=== PATIENT | male | born 1950 | race Caucasian/White ===

== ENCOUNTER 2016-11-30 22:30 | Inpatient (IN) | payer MEDICARE ==
[2016-11-30] MEDS ORDERED: SODIUM CHLORIDE 0.9% 1,000 ML IV STA (22:41)
[2016-11-30] MEDS ORDERED: IPRATROPIUM-ALBUTEROL 3 ML NEB INHALATION STA (22:41)
--- NOTE | 2016-11-30 22:45 | ED ---
SOB HPI - General Stated Complaint: SARA/Dizziness Time Seen by Provider: 11/30/16 22:30 Source: patient, family, EMS, RN notes reviewed Mode of arrival: EMS - History of Present Illness Initial Comments: This is a 66-year-old male who presents with complaints of dizziness and shortness of breath this started earlier tonight. He also had nausea. He is brought in by EMS patient denies any history of lung problems. He denies any chest pain. No recent fevers chills sweats or other symptoms. He was given Zofran and route by EMS. His only history is that of cardiac disease and diabetes type 2. MD Complaint: shortness of breath - Related Data Home Medications Medication Instructions Recorded Confirmed metFORMIN HCL [Glucophage] 500 mg PO BID 12/01/16 12/01/16 Previous Rx's Medication Instructions Recorded Aspirin EC [Ecotrin] 325 mg PO DAILY #30 tablet. 11/14/14 amLODIPine [Norvasc] 10 mg PO DAILY #30 tab 11/14/14 Allergies Allergy/AdvReac Type Severity Reaction Status Date / Time orphenadrine citrate Allergy Rash/Hives Verified 11/30/16 22:51 [From Norflex] Review of Systems ROS Statement: Those systems with pertinent positive or pertinent negative responses have been documented in the HPI. ROS Other: All systems not noted in ROS Statement are negative. Past Medical History Past Medical History: CVA/TIA, Hypertension Additional Past Medical History / Comment(s): TIA LONG TIME AGO History of Any Multi-Drug Resistant Organisms: None Reported Past Surgical History: Adenoidectomy, Hernia Repair, Tonsillectomy Additional Past Surgical History / Comment(s): RT INGUINAL X4 SEPARATE SX Past Anesthesia/Blood Transfusion Reactions: Motion Sickness, Postoperative Nausea & Vomiting (PONV) Past Psychological History: No Psychological Hx Reported Smoking Status: Former smoker Past Alcohol Use History: None Reported Additional Past Alcohol Use History / Comment(s): STARTED SMOKING AT AGE 21 AND QUIT AT AGE 22 Past Drug Use History: None Reported - Past Family History Father Family Medical History: Myocardial Infarction ([place]) Additional Family Medical History / Comment(s): AT AGE 74 FROM [place] Mother Family Medical History: Diabetes Mellitus Additional Family Medical History / Comment(s): AT AGE 55 COMPLICATIONS FROM DIABETES General Exam - General Exam Comments Initial Comments: This is a well-developed well-nourished awake alert oriented times x3 male General appearance: alert, anxious, in distress Head exam: Present: atraumatic, normocephalic, normal inspection Eye exam: Present: normal appearance, PERRL, EOMI. Absent: scleral icterus, conjunctival injection, periorbital swelling ENT exam: Present: normal exam, mucous membranes moist Neck exam: Present: normal inspection. Absent: tenderness, meningismus, lymphadenopathy Respiratory exam: Present: wheezes, decreased breath sounds. Absent: respiratory distress, rales, rhonchi, stridor Cardiovascular Exam: Present: regular rate, normal rhythm, normal heart sounds. Absent: systolic murmur, diastolic murmur, rubs, gallop, clicks GI/Abdominal exam: Present: soft, normal bowel sounds. Absent: distended, tenderness, guarding, rebound, rigid Extremities exam: Present: normal inspection, full ROM, normal capillary refill. Absent: tenderness, pedal edema, joint swelling, calf tenderness Back exam: Present: normal inspection Neurological exam: Present: alert, oriented X3, CN II-XII intact Psychiatric exam: Present: normal affect, normal mood Skin exam: Present: warm, dry, intact, normal color. Absent: rash Course Vital Signs 11/30/16 11/30/16 11/30/16 22:48 22:58 23:05 Temperature 97.7 F Pulse Rate 80 76 78 Respiratory 20 Rate Blood Pressure 143/63 O2 Sat by Pulse 92 L Oximetry 12/01/16 00:00 Temperature Pulse Rate 70 Respiratory 18 Rate Blood Pressure 144/67 O2 Sat by Pulse 95 Oximetry - Reevaluation(s) Reevaluation #1: 12/01/16 00:23 Patient states he is breathing better he does demonstrate an elevated d-dimer CAT scan has been ordered of his chest. Medical Decision Making - Medical Decision Making I did reevaluate patient several occasions he still feeling very dyspneic especially on sitting upright. He has wheezing in the bases. Patient will be admitted - Lab Data Result diagrams: 11/30/16 22:55 11/30/16 22:55 Lab Results 11/30/16 11/30/16 11/30/16 Range/Units 22:55 22:55 22:55 WBC 6.5 (3.8-10.6) k/uL RBC 4.76 (4.30-5.90) m/uL Hgb 13.7 (13.0-17.5) gm/dL Hct 41.4 (39.0-53.0) % MCV 87.0 (80.0-100.0) fL MCH 28.7 (25.0-35.0) pg MCHC 33.0 (31.0-37.0) g/dL RDW 13.6 (11.5-15.5) % Plt Count 216 (150-450) k/uL Neutrophils % 65 % Lymphocytes % 22 % Monocytes % 6 % Eosinophils % 5 % Basophils % 1 % Neutrophils # 4.2 (1.3-7.7) k/uL Lymphocytes # 1.4 (1.0-4.8) k/uL Monocytes # 0.4 (0-1.0) k/uL Eosinophils # 0.3 (0-0.7) k/uL Basophils # 0.0 (0-0.2) k/uL PT (9.0-12.0) sec INR (<1.1) APTT (22.0-30.0) sec D-Dimer (<0.60) mg/L FEU Sodium 141 (137-145) mmol/L Potassium 3.9 (3.5-5.1) mmol/L Chloride 104 (98-107) mmol/L Carbon Dioxide 24 (22-30) mmol/L Anion Gap 13 mmol/L BUN 20 (9-20) mg/dL Creatinine 0.80 (0.66-1.25) mg/dL Est GFR (MDRD) Af Amer >60 (>60 ml/min/1.73 sqM) Est GFR (MDRD) Non-Af >60 (>60 ml/min/1.73 sqM) Glucose 173 H (74-99) mg/dL Calcium 9.0 (8.4-10.2) mg/dL Magnesium 1.9 (1.6-2.3) mg/dL Total Bilirubin 0.4 (0.2-1.3) mg/dL AST 22 (17-59) U/L ALT 40 (21-72) U/L Alkaline Phosphatase 87 (38-126) U/L Total Creatine Kinase 77 (55-170) U/L CK-MB (CK-2) 1.2 (0.0-2.4) ng/mL CK-MB (CK-2) Rel Index 1.6 Troponin I 0.023 (0.000-0.034) ng/mL NT-Pro-B Natriuret Pep pg/mL Total Protein 6.9 (6.3-8.2) g/dL Albumin 3.8 (3.5-5.0) g/dL 11/30/16 11/30/16 Range/Units 22:55 22:55 WBC (3.8-10.6) k/uL RBC (4.30-5.90) m/uL Hgb (13.0-17.5) gm/dL Hct (39.0-53.0) % MCV (80.0-100.0) fL MCH (25.0-35.0) pg MCHC (31.0-37.0) g/dL RDW (11.5-15.5) % Plt Count (150-450) k/uL Neutrophils % % Lymphocytes % % Monocytes % % Eosinophils % % Basophils % % Neutrophils # (1.3-7.7) k/uL Lymphocytes # (1.0-4.8) k/uL Monocytes # (0-1.0) k/uL Eosinophils # (0-0.7) k/uL Basophils # (0-0.2) k/uL PT 10.0 (9.0-12.0) sec INR 1.0 (<1.1) APTT 24.4 (22.0-30.0) sec D-Dimer 0.82 H (<0.60) mg/L FEU Sodium (137-145) mmol/L Potassium (3.5-5.1) mmol/L Chloride (98-107) mmol/L Carbon Dioxide (22-30) mmol/L Anion Gap mmol/L BUN (9-20) mg/dL Creatinine (0.66-1.25) mg/dL Est GFR (MDRD) Af Amer (>60 ml/min/1.73 sqM) Est GFR (MDRD) Non-Af (>60 ml/min/1.73 sqM) Glucose (74-99) mg/dL Calcium (8.4-10.2) mg/dL Magnesium (1.6-2.3) mg/dL Total Bilirubin (0.2-1.3) mg/dL AST (17-59) U/L ALT (21-72) U/L Alkaline Phosphatase (38-126) U/L Total Creatine Kinase (55-170) U/L CK-MB (CK-2) (0.0-2.4) ng/mL CK-MB (CK-2) Rel Index Troponin I (0.000-0.034) ng/mL NT-Pro-B Natriuret Pep 157 pg/mL Total Protein (6.3-8.2) g/dL Albumin (3.5-5.0) g/dL - EKG Data -: EKG Interpreted by Ar EKG shows normal: sinus rhythm (Sinus rhythm rate of 83. Arrival 160 QRS duration 98 QT/QTC of 412/[address]-T wave configuration. Some artifact is present) - Radiology Data Radiology results: report reviewed (X-rays are nonspecific a CAT scan of the chest was done no evidence of pulmonary emboli.), image reviewed Disposition Clinical Impression: Adult respiratory distress syndrome, Acute bronchospasm Disposition: ADMITTED IP TO THIS HOSP Condition: Stable
[2016-11-30 23:07] LABS: Basophils % (A) 1 %; CH 29.3; CHCM 33.8; Eosinophils # (A) 0.3 k/uL (0-0.7); Eosinophils % (A) 5 %; HCT 41.4 % (39.0-53.0); HDW 2.88; HGB 13.7 gm/dL (13.0-17.5); Luc # (Auto) 0.17; Luc % (Auto) 3; Lymphocytes # (A) 1.4 k/uL (1.0-4.8); Lymphocytes % (A) 22 %; MCH 28.7 pg (25.0-35.0); Mean Platelet Volume 6.8; Monocytes # (A) 0.4 k/uL (0-1.0); Monocytes % (A) 6 %; Neutrophils # (A) 4.2 k/uL (1.3-7.7); Neutrophils % (A) 65 %; RBC 4.76 m/uL (4.30-5.90); RDW 13.6 % (11.5-15.5); WBC 6.5 k/uL (3.8-10.6); WBC (Perox) 6.65
[2016-11-30 23:20] LABS: Partial Thromboplastin Time 24.4 sec (22.0-30.0)
[2016-11-30 23:24] LABS: ALT 40 U/L (21-72); AST 22 U/L (17-59); Alkaline Phosphatase 87 U/L (38-126); Anion Gap 13 mmol/L; Blood Urea Nitrogen 20 mg/dL (9-20); Carbon Dioxide 24 mmol/L (22-30); Chloride 104 mmol/L (98-107); Glucose 173 mg/dL (74-99); Magnesium 1.9 mg/dL (1.6-2.3); Non-African American GFR(MDRD) >60 (>60 ml/min/1.73 sqM); Potassium 3.9 mmol/L (3.5-5.1); Sodium 141 mmol/L (137-145); Total Bilirubin 0.4 mg/dL (0.2-1.3); Total Protein 6.9 g/dL (6.3-8.2)
[2016-11-30 23:35] LABS: Creatine Kinase MB 1.2 ng/mL (0.0-2.4); Troponin I 0.023 ng/mL (0.000-0.034)
[2016-11-30] MEDS ORDERED: RX INFO: IV CONTRAST WAS GIVEN 1 EACH MISC MISCELLANE PRN (23:40)
--- NOTE | 2016-11-30 23:58 | XR ---
EXAMINATION TYPE: XR chest 2V DATE OF EXAM: 11/30/2016 11:41 PM COMPARISON: 11/07/2014 HISTORY: Dizziness TECHNIQUE: Frontal and lateral views of the chest are obtained. FINDINGS: There is no heart failure nor confluent pneumonic infiltrate. Heart is probably enlarged. Thoracic aorta is atheromatous. There are chest leads. Costophrenic angles are clear. IMPRESSION: Mild cardiomegaly. No active cardiopulmonary disease. No change.
--- NOTE | 2016-12-01 00:55 | CT ---
EXAMINATION TYPE: CT angio chest DATE OF EXAM: 12/01/2016 12:39 AM COMPARISON: NONE HISTORY: weakness, R/O PE CT DLP: 612.10 mGycm Automated exposure control for dose reduction was used. CONTRAST: CTA scan of the thorax is performed with IV Contrast, patient injected with 70 mL of Omnipaque 350, p ulmonary embolism protocol. . FINDINGS: There are 3-D post processed images. There is mild atelectasis at the lung bases. There is no evidenc e of a pulmonary mass. There is no pleural effusion. There is a small hiatal hernia. There is no estefany cardial effusion. I see no filling defect in the pulmonary arteries. There are no hilar masses. There is no mediastinal adenopathy. There is no evidence of aortic aneurysm or dissection. The bony thorax is intact. IMPRESSION: NO EVIDENCE OF PULMONARY EMBOLISM. SMALL HIATAL HERNIA. BASILAR MILD PLEURAL THICKENING AND ATELECTAS IS.
--- NOTE | 2016-12-01 01:10 | ED ---
Medical Decision Making - Lab Data Result diagrams: 11/30/16 22:55 11/30/16 22:55 Lab Results 11/30/16 11/30/16 11/30/16 Range/Units 22:55 22:55 22:55 WBC 6.5 (3.8-10.6) k/uL RBC 4.76 (4.30-5.90) m/uL Hgb 13.7 (13.0-17.5) gm/dL Hct 41.4 (39.0-53.0) % MCV 87.0 (80.0-100.0) fL MCH 28.7 (25.0-35.0) pg MCHC 33.0 (31.0-37.0) g/dL RDW 13.6 (11.5-15.5) % Plt Count 216 (150-450) k/uL Neutrophils % 65 % Lymphocytes % 22 % Monocytes % 6 % Eosinophils % 5 % Basophils % 1 % Neutrophils # 4.2 (1.3-7.7) k/uL Lymphocytes # 1.4 (1.0-4.8) k/uL Monocytes # 0.4 (0-1.0) k/uL Eosinophils # 0.3 (0-0.7) k/uL Basophils # 0.0 (0-0.2) k/uL PT (9.0-12.0) sec INR (<1.1) APTT (22.0-30.0) sec D-Dimer (<0.60) mg/L FEU Sodium 141 (137-145) mmol/L Potassium 3.9 (3.5-5.1) mmol/L Chloride 104 (98-107) mmol/L Carbon Dioxide 24 (22-30) mmol/L Anion Gap 13 mmol/L BUN 20 (9-20) mg/dL Creatinine 0.80 (0.66-1.25) mg/dL Est GFR (MDRD) Af Amer >60 (>60 ml/min/1.73 sqM) Est GFR (MDRD) Non-Af >60 (>60 ml/min/1.73 sqM) Glucose 173 H (74-99) mg/dL Calcium 9.0 (8.4-10.2) mg/dL Magnesium 1.9 (1.6-2.3) mg/dL Total Bilirubin 0.4 (0.2-1.3) mg/dL AST 22 (17-59) U/L ALT 40 (21-72) U/L Alkaline Phosphatase 87 (38-126) U/L Total Creatine Kinase 77 (55-170) U/L CK-MB (CK-2) 1.2 (0.0-2.4) ng/mL CK-MB (CK-2) Rel Index 1.6 Troponin I 0.023 (0.000-0.034) ng/mL NT-Pro-B Natriuret Pep pg/mL Total Protein 6.9 (6.3-8.2) g/dL Albumin 3.8 (3.5-5.0) g/dL 11/30/16 11/30/16 Range/Units 22:55 22:55 WBC (3.8-10.6) k/uL RBC (4.30-5.90) m/uL Hgb (13.0-17.5) gm/dL Hct (39.0-53.0) % MCV (80.0-100.0) fL MCH (25.0-35.0) pg MCHC (31.0-37.0) g/dL RDW (11.5-15.5) % Plt Count (150-450) k/uL Neutrophils % % Lymphocytes % % Monocytes % % Eosinophils % % Basophils % % Neutrophils # (1.3-7.7) k/uL Lymphocytes # (1.0-4.8) k/uL Monocytes # (0-1.0) k/uL Eosinophils # (0-0.7) k/uL Basophils # (0-0.2) k/uL PT 10.0 (9.0-12.0) sec INR 1.0 (<1.1) APTT 24.4 (22.0-30.0) sec D-Dimer 0.82 H (<0.60) mg/L FEU Sodium (137-145) mmol/L Potassium (3.5-5.1) mmol/L Chloride (98-107) mmol/L Carbon Dioxide (22-30) mmol/L Anion Gap mmol/L BUN (9-20) mg/dL Creatinine (0.66-1.25) mg/dL Est GFR (MDRD) Af Amer (>60 ml/min/1.73 sqM) Est GFR (MDRD) Non-Af (>60 ml/min/1.73 sqM) Glucose (74-99) mg/dL Calcium (8.4-10.2) mg/dL Magnesium (1.6-2.3) mg/dL Total Bilirubin (0.2-1.3) mg/dL AST (17-59) U/L ALT (21-72) U/L Alkaline Phosphatase (38-126) U/L Total Creatine Kinase (55-170) U/L CK-MB (CK-2) (0.0-2.4) ng/mL CK-MB (CK-2) Rel Index Troponin I (0.000-0.034) ng/mL NT-Pro-B Natriuret Pep 157 pg/mL Total Protein (6.3-8.2) g/dL Albumin (3.5-5.0) g/dL Critical Care Time Critical Care Time: Yes Critical Care Time: 35 minutes of critical care time which includes initial monitoring of the EMS call and discussed with paramedics. Initial history physical lab and x-ray evaluation of the patient. Evaluation the patient response to therapy and several occasions. Discussion with the patient family regarding the findings. Discussion with the admitting physician. Admission orders and documentation the above. Disposition Clinical Impression: Adult respiratory distress syndrome, Acute bronchospasm Disposition: ADMITTED IP TO THIS HOSP Condition: Stable Referrals: Carmela Watts MD [Primary Care Provider] - 1-2 days
[2016-12-01] MEDS ORDERED: IPRATROPIUM-ALBUTEROL 3 ML NEB INHALATION PRN (01:53)
[2016-12-01] MEDS ORDERED: IPRATROPIUM-ALBUTEROL 3 ML NEB INHALATION SCH (04:00)
[2016-12-01] MEDS: methylPREDNISolone SOD SUCCI 125 MG/2 ML VIAL IV SCH ×3 (05:30→17:59)
[2016-12-01 07:11] LABS: Glucose,Whole Blood 135 mg/dL (75-99)
[2016-12-01] MEDS: ASPIRIN 325 MG TAB PO SCH (07:44)
[2016-12-01] MEDS: metFORMIN 500 MG TAB PO SCH ×2 (07:44→17:59)
[2016-12-01] MEDS: INSULIN LISPRO (humaLOG) 300 UNIT/3 ML VIAL SQ SCH ×4 (07:45→21:05)
[2016-12-01 11:12] LABS: Hemoglobin A1C 7.5 % (4.2-6.1)
[2016-12-01] MEDS: amLODIPine 10 MG TAB PO SCH (11:19)
[2016-12-01 12:28] LABS: Glucose,Whole Blood 204 mg/dL (75-99)
[2016-12-01] MEDS ORDERED: Potassium Replacement Protocol 1 EACH MISC MISCELLANE PRN (13:19)
[2016-12-01] MEDS ORDERED: Magnesium Replacement Protocol 1 EACH MISC MISCELLANE PRN (13:19)
--- NOTE | 2016-12-01 13:19 | P.HPIM ---
History of Present Illness H&P Date: 12/01/16 Chief Complaint: Dizziness and shortness of breath This is a 66-year-old gentleman with past medical history noted below who presented to the emergency room with dizziness and shortness of breath. Patient said that he has been doing fairly well up until yesterday when he tried to get out of bed and suddenly he started feeling dizzy and was holding onto the wall to get back to bed to lay down. He said after laying down for a couple minutes he started feeling better. He denies any headache, palpitation, or chest pain. Patient said that he had similar symptoms approximately a month ago when he was hospitalized at [facility] and underwent a chemical stress test that was reported negative to him. Since then he has been doing fairly well. He denies having any episodes of dizziness otherwise. He denies any chest pain or palpitation. He said that he's been feeling short of breath on and off for the past several days. He denies any significant cough. He admitted to having wheezing at home. He is a nonsmoker. He was never diagnosed with asthma or COPD. He was evaluated in the emergency room and was found to have elevated d-dimer but a CT angiogram was negative for PE. Patient was started on IV Solu-Medrol and was admitted to the hospital for further evaluation. Review of Systems Review of system: 14 points review of systems were obtained and were negative except to what were mentioned in the HPI. Past Medical History Past Medical History: CVA/TIA, Diabetes Mellitus, Hypertension Additional Past Medical History / Comment(s): TIA LONG TIME AGO, heart murmur History of Any Multi-Drug Resistant Organisms: None Reported Past Surgical History: Adenoidectomy, Hernia Repair, Tonsillectomy Additional Past Surgical History / Comment(s): RT INGUINAL X4 SEPARATE SX Past Anesthesia/Blood Transfusion Reactions: Motion Sickness, Postoperative Nausea & Vomiting (PONV) Past Psychological History: No Psychological Hx Reported Smoking Status: Former smoker Past Alcohol Use History: None Reported Additional Past Alcohol Use History / Comment(s): STARTED SMOKING AT AGE 21 AND QUIT AT AGE 22 Past Drug Use History: None Reported - Past Family History Father Family Medical History: CVA/TIA, Myocardial Infarction ([place]) Additional Family Medical History / Comment(s): AT AGE 74 FROM [place] Mother Family Medical History: Diabetes Mellitus Additional Family Medical History / Comment(s): AT AGE 55 COMPLICATIONS FROM DIABETES Medications and Allergies Home Medications Medication Instructions Recorded Confirmed Type metFORMIN HCL [Glucophage] 500 mg PO AC-BID 12/01/16 12/01/16 History Allergies Allergy/AdvReac Type Severity Reaction Status Date / Time orphenadrine citrate Allergy Rash/Hives Verified 12/01/16 08:48 [From Norflex] Physical Exam Vitals: Vital Signs Temp Pulse Pulse Pulse Pulse Pulse Resp 12/01/16 11:10 84 88 79 20 12/01/16 08:00 18 12/01/16 07:00 97.8 F 76 18 12/01/16 02:30 97.0 F L 79 16 12/01/16 01:43 98.7 F 75 18 BP BP BP BP BP Pulse Ox 12/01/16 11:10 145/79 138/74 127/68 94 L 12/01/16 08:00 12/01/16 07:00 141/69 94 L 12/01/16 02:30 144/80 95 12/01/16 01:43 150/70 96 Intake and Output 11/30/16 12/01/16 12/01/16 22:59 06:59 14:59 Output Total 650 Balance -650 Output: Urine 650 Other: # Voids 2 Weight 102.05 kg General: The patient is awake and alert, in no distress, and does not appear acutely ill. Eye: extra-ocular movements are intact; there is normal conjunctiva bilaterally. . Neck: The neck is supple, there is no tenderness or JVD. Cardiovascular: Normal S1-S2, no S3-S4, no murmurs. Respiratory: Lungs with wheezing all over the chest Gastrointestinal: Abdomen is soft, nontender, nondistended, with no organomegaly. . Musculoskeletal: Normal ROM, no tenderness, There is no pedal edema. Neurological: There are no obvious motor or sensory deficits. Speech is normal. Skin: Skin is warm and dry and no rashes or lesions are noted. Results CBC & Chem 7: 11/30/16 22:55 11/30/16 22:55 Labs: Abnormal Lab Results - Last 24 Hours (Table) 12/01/16 12/01/16 Range/Units 07:10 12:25 POC Glucose (mg/dL) 135 H 204 H (75-99) mg/dL Thrombosis Risk Factor Assmnt - Choose All That Apply Any of the Below Risk Factors Present?: Yes Each Factor Represents 1 point: Obesity (BMI >25) Other Risk Factors: Yes Each Risk Factor Represents 2 Points: Age 61-74 years Other congenital or acquired thrombophilia - If yes, enter type in comment: No Thrombosis Risk Factor Assessment Total Risk Factor Score: 3 Thrombosis Risk Factor Assessment Level: Moderate Risk Assessment and Plan Plan: 1. Dizziness: Most likely attributed to orthostatic hypotension as patient admits that he got up abruptly from a laying position. Patient was hydrated overnight. Repeat orthostatic blood pressure this morning was negative. Patient remained in sinus rhythm on telemetry monitoring. He recently had a stress echocardiogram at [facility] that was reported negative. 2. Reactive airway disease with diffuse wheezing: Currently on IV Solu-Medrol and bronchodilators. I will consult pulmonology for further evaluation. Patient may benefit from a formal PFT as an outpatient. Chest x-ray with no acute findings 3. Essential hypertension: Blood pressure well-controlled 4. Mixed hyperlipidemia 5. Nonobstructive coronary artery disease noticed on left heart catheterization in 2014: Managed medically 6. DVT prophylaxis with subcu heparin Plan for today. Continue bronchodilators and steroids. Appreciate securities consultant recommendations. Encouraged ambulation. Repeat lab work in the morning.
[2016-12-01] MEDS: IPRATROPIUM-ALBUTEROL 3 ML NEB INHALATION SCH ×2 (15:38→20:05)
[2016-12-01 16:50] LABS: Glucose,Whole Blood 206 mg/dL (75-99)
[2016-12-01 20:53] LABS: Glucose,Whole Blood 247 mg/dL (75-99)
[2016-12-02] MEDS: methylPREDNISolone SOD SUCCI 125 MG/2 ML VIAL IV SCH ×4 (00:11→17:54)
[2016-12-02 07:25] LABS: Glucose,Whole Blood 198 mg/dL (75-99)
[2016-12-02] MEDS: INSULIN LISPRO (humaLOG) 300 UNIT/3 ML VIAL SQ SCH ×4 (08:15→21:50)
[2016-12-02] MEDS: metFORMIN 500 MG TAB PO SCH ×2 (08:15→17:54)
[2016-12-02] MEDS: amLODIPine 10 MG TAB PO SCH (08:15)
[2016-12-02] MEDS: ASPIRIN 325 MG TAB PO SCH (08:16)
[2016-12-02] MEDS: IPRATROPIUM-ALBUTEROL 3 ML NEB INHALATION SCH ×4 (08:44→19:57)
[2016-12-02 11:57] LABS: Basophils % (A) 0 %; CH 29.1; CHCM 32.8; Eosinophils % (A) 0 %; HCT 36.8 % (39.0-53.0); HDW 2.75; HGB 11.8 gm/dL (13.0-17.5); Luc # (Auto) 0.07; Luc % (Auto) 1; Lymphocytes # (A) 0.8 k/uL (1.0-4.8); Lymphocytes % (A) 6 %; MCH 28.5 pg (25.0-35.0); MCV 89.1 fL (80.0-100.0); Mean Platelet Volume 7.2; Monocytes # (A) 0.5 k/uL (0-1.0); Monocytes % (A) 3 %; Neutrophils # (A) 12.9 k/uL (1.3-7.7); Neutrophils % (A) 90 %; RBC 4.13 m/uL (4.30-5.90); RDW 13.9 % (11.5-15.5); WBC 14.2 k/uL (3.8-10.6)
[2016-12-02 12:22] LABS: Anion Gap 13 mmol/L; Blood Urea Nitrogen 28 mg/dL (9-20); Calcium 9.9 mg/dL (8.4-10.2); Carbon Dioxide 22 mmol/L (22-30); Chloride 100 mmol/L (98-107); Glucose 238 mg/dL (74-99); Magnesium 1.8 mg/dL (1.6-2.3); Non-African American GFR(MDRD) >60 (>60 ml/min/1.73 sqM); Phosphorous 3.4 mg/dL (2.5-4.5); Potassium 4.3 mmol/L (3.5-5.1); Sodium 135 mmol/L (137-145)
[2016-12-02 12:40] LABS: Glucose,Whole Blood 196 mg/dL (75-99)
--- NOTE | 2016-12-02 12:48 | P.PN ---
Subjective Patient is still complaining of shortness of breath today. Continues to have wheezing. No significant cough. No fevers documented. Slight dizziness when he get up and walk around. Objective - Vital Signs Vital signs: Vital Signs Temp 97.4 F L 12/02/16 07:00 Pulse 72 12/02/16 12:09 Resp 22 12/02/16 07:00 BP 138/77 12/02/16 07:00 Pulse Ox 94 L 12/02/16 08:45 Intake & Output 12/01/16 12/02/16 12/02/16 18:59 06:59 18:59 Intake Total 160 Output Total 800 500 Balance 160 -800 -500 Intake: IV 160 Sodium Chloride 0.9% 1, 160 000 ml @ 100 mls/hr IV . Q10H STA Rx#:[id number] Output: Urine 800 500 Other: # Voids 2 - Exam General: The patient is awake and alert, in no distress Eye: there is normal conjunctiva bilaterally. Neck: The neck is supple, there is no JVD. Cardiovascular: Normal S1-S2, no S3-S4, no murmurs. Respiratory: Lungs are diminished with end-expiratory wheezing Gastrointestinal: Abdomen is soft, nontender Musculoskeletal: There is no pedal edema. Neurological:. Speech is normal. Skin: Skin is warm and dry - Labs CBC & Chem 7: 12/02/16 11:11 12/02/16 11:11 Labs: Abnormal Lab Results - Last 24 Hours (Table) 12/01/16 12/01/16 12/02/16 Range/Units 16:49 20:51 07:23 WBC (3.8-10.6) k/uL RBC (4.30-5.90) m/uL Hgb (13.0-17.5) gm/dL Hct (39.0-53.0) % Neutrophils # (1.3-7.7) k/uL Lymphocytes # (1.0-4.8) k/uL Sodium (137-145) mmol/L BUN (9-20) mg/dL Glucose (74-99) mg/dL POC Glucose (mg/dL) 206 H 247 H 198 H (75-99) mg/dL 12/02/16 12/02/16 12/02/16 Range/Units 11:11 11:11 12:28 WBC 14.2 H (3.8-10.6) k/uL RBC 4.13 L (4.30-5.90) m/uL Hgb 11.8 L (13.0-17.5) gm/dL Hct 36.8 L (39.0-53.0) % Neutrophils # 12.9 H (1.3-7.7) k/uL Lymphocytes # 0.8 L (1.0-4.8) k/uL Sodium 135 L (137-145) mmol/L BUN 28 H (9-20) mg/dL Glucose 238 H (74-99) mg/dL POC Glucose (mg/dL) 196 H (75-99) mg/dL Assessment and Plan Plan: 1. Dizziness: Most likely attributed to orthostatic hypotension as patient admits that he got up abruptly from a laying position. Patient was hydrated overnight. Repeat orthostatic blood pressure this morning was negative. Patient remained in sinus rhythm on telemetry monitoring. He recently had a stress echocardiogram at [facility] that was reported negative. 2. Reactive airway disease with diffuse wheezing: Currently on IV Solu-Medrol and bronchodilators. I will consult pulmonology for further evaluation. Patient may benefit from a formal PFT as an outpatient. Chest x-ray with no acute findings 3. Essential hypertension: Blood pressure well-controlled 4. Mixed hyperlipidemia 5. Nonobstructive coronary artery disease noticed on left heart catheterization in 2014: Managed medically 6. DVT prophylaxis with subcu heparin 7. Steroid-induced leukocytosis Plan for today. Continue bronchodilators and steroids. Appreciate [employer] security consultant recommendations. Encouraged ambulation. Repeat lab work in the morning.
--- NOTE | 2016-12-02 15:24 | P.CNPUL ---
History of Present Illness Consult date: 12/02/16 Requesting physician: Christopher Martínez Reason for consult: dyspnea Chief complaint: Dizziness and shortness of breath History of present illness: This is a very pleasant 66-year-old gentleman who was to see Dr. Watts has a new primary care physician. The patient was recently admitted to [facility] for dizziness and lightheadedness. His stress test was negative is reported to him. He has a history of CVA/TIA, diabetes mellitus, hypertension. He presented here with complaints of dizziness and shortness of breath on exertion. He has no prior history of chronic lung disease. He has a remote history of smoking. No history of asthma or emphysema. He is not any inhalers at home. He has been having ongoing issues with shortness of breath and dyspnea on exertion along with some wheezing. He is seen today in consultation on the regular medical floor. Currently, he is awake and alert in no acute distress. He states his breathing is easier today as compared to yesterday but he still gets quite short of breath with minimal activity. The chest x-ray revealed no acute pulmonary process. CT angiogram ruled out pulmonary embolism. He has been afebrile. Maintaining good O2 saturations in the mid 90s on 2 L/m per nasal cannula. Review of Systems 14 point review of system was conducted. All negative other than as mentioned in the HPI. Past Medical History Past Medical History: CVA/TIA, Diabetes Mellitus, Hypertension Additional Past Medical History / Comment(s): TIA LONG TIME AGO, heart murmur History of Any Multi-Drug Resistant Organisms: None Reported Past Surgical History: Adenoidectomy, Hernia Repair, Tonsillectomy Additional Past Surgical History / Comment(s): RT INGUINAL X4 SEPARATE SX Past Anesthesia/Blood Transfusion Reactions: Motion Sickness, Postoperative Nausea & Vomiting (PONV) Past Psychological History: No Psychological Hx Reported Smoking Status: Former smoker Past Alcohol Use History: None Reported Additional Past Alcohol Use History / Comment(s): STARTED SMOKING AT AGE 21 AND QUIT AT AGE 22 Past Drug Use History: None Reported - Past Family History Father Family Medical History: CVA/TIA, Myocardial Infarction (CT) Additional Family Medical History / Comment(s): AT AGE [address] Mother Family Medical History: Diabetes Mellitus Additional Family Medical History / Comment(s): AT AGE 55 COMPLICATIONS FROM DIABETES Medications and Allergies Home Medications Medication Instructions Recorded Confirmed Type metFORMIN HCL [Glucophage] 500 mg PO AC-BID 12/01/16 12/01/16 History Allergies Allergy/AdvReac Type Severity Reaction Status Date / Time orphenadrine citrate Allergy Rash/Hives Verified 12/01/16 08:48 [From Norflex] Physical Exam Vitals: Vital Signs Temp Pulse Pulse Pulse Pulse Pulse Resp 12/02/16 14:56 97.6 F 94 22 12/02/16 12:09 72 12/02/16 12:03 72 12/02/16 09:07 76 12/02/16 08:45 80 12/02/16 07:00 97.4 F L 88 22 12/01/16 23:00 99.4 F 95 16 12/01/16 20:15 84 12/01/16 20:06 76 12/01/16 15:51 76 12/01/16 15:41 76 12/01/16 15:31 76 84 88 79 20 BP BP BP Pulse Ox 12/02/16 14:56 133/63 93 L 12/02/16 12:09 12/02/16 12:03 12/02/16 09:07 12/02/16 08:45 94 L 12/02/16 07:00 138/77 93 L 12/01/16 23:00 140/72 95 12/01/16 20:15 12/01/16 20:06 12/01/16 15:51 12/01/16 15:41 12/01/16 15:31 Intake and Output 12/02/16 12/02/16 12/02/16 06:59 14:59 22:59 Intake Total 200 Output Total 800 1700 Balance -800 -1500 Intake: Oral 200 Output: Urine 800 1700 Stool 0 Other: # Voids 2 GENERAL EXAM: Alert, comfortable in no apparent distress. HEAD: Normocephalic. EYES: Normal reaction of pupils, equal size. NOSE: Clear with pink turbinates. THROAT: No erythema or exudates. NECK: No masses, no JVD. CHEST: No chest wall deformity. LUNGS: Equal air entry with faint end expiratory wheeze. Diminished. CVS: S1 and S2 normal with no audible murmurs, regular rhythm. ABDOMEN: No hepatosplenomegaly, normal bowel sounds, no guarding or rigidity. SPINE: No scoliosis or deformity SKIN: No rashes CENTRAL NERVOUS SYSTEM: No focal deficits, tone is normal in all 4 extremities. Extremities: There is no significant peripheral edema. No clubbing, no cyanosis. Peripheral pulses are intact. Results - Laboratory Findings CBC and BMP: 12/02/16 11:11 12/02/16 11:11 PT/INR, D-dimer PT 10.0 sec (9.0-12.0) 11/30/16 22:55 INR 1.0 (<1.1) 11/30/16 22:55 D-Dimer 0.82 mg/L FEU (<0.60) H 11/30/16 22:55 Abnormal lab findings: Abnormal Labs 12/01/16 12/01/16 12/01/16 07:10 12:25 16:49 WBC RBC Hgb Hct Neutrophils # Lymphocytes # Sodium BUN Glucose POC Glucose (mg/dL) 135 H 204 H 206 H 12/01/16 12/02/16 12/02/16 20:51 07:23 11:11 WBC 14.2 H RBC 4.13 L Hgb 11.8 L Hct 36.8 L Neutrophils # 12.9 H Lymphocytes # 0.8 L Sodium BUN Glucose POC Glucose (mg/dL) 247 H 198 H 12/02/16 12/02/16 11:11 12:28 WBC RBC Hgb Hct Neutrophils # Lymphocytes # Sodium 135 L BUN 28 H Glucose 238 H POC Glucose (mg/dL) 196 H - Diagnostic Findings Chest x-ray: image reviewed CT scan - chest: image reviewed Assessment and Plan Plan: Impression: #1 Dizziness secondary to suspected orthostatic hypotension. #2 Dyspnea on exertion of unclear etiology. Chest x-ray and CAT scan revealed no acute pulmonary process. No pulmonary embolism. Remote history of smoking. #3 Hypertension. #4 Diabetes mellitus. Plan: The patient was seen and evaluated by Dr. Underwood. His chest x-ray and CAT scans were reviewed. There is no evidence of acute pulmonary disease. He would benefit from a outpatient workup including full pulmonary function testing to the evaluate the suspected COPD and make further recommendations regarding maintenance medications. In the interim we'll increase his activity as tolerated. We'll continue with his current medications including bronchodilators and IV Solu-Medrol. We will increase his activity as tolerated. We'll continue to follow make further recommendations based on his clinical status. Time with Patient: Greater than 30
[2016-12-02 17:12] LABS: Glucose,Whole Blood 244 mg/dL (75-99)
[2016-12-02 21:08] LABS: Glucose,Whole Blood 282 mg/dL (75-99)
[2016-12-03] MEDS: methylPREDNISolone SOD SUCCI 125 MG/2 ML VIAL IV SCH ×4 (00:59→17:16)
[2016-12-03 07:39] LABS: Glucose,Whole Blood 199 mg/dL (75-99)
[2016-12-03] MEDS: IPRATROPIUM-ALBUTEROL 3 ML NEB INHALATION SCH ×2 (07:50→10:58)
[2016-12-03] MEDS: INSULIN LISPRO (humaLOG) 300 UNIT/3 ML VIAL SQ SCH ×4 (08:07→21:40)
[2016-12-03] MEDS: ASPIRIN 325 MG TAB PO SCH (08:08)
[2016-12-03] MEDS: amLODIPine 10 MG TAB PO SCH (08:08)
[2016-12-03] MEDS: metFORMIN 500 MG TAB PO SCH ×2 (08:08→17:15)
[2016-12-03 08:38] LABS: Basophils % (A) 0 %; CH 29.2; CHCM 32.9; Eosinophils % (A) 0 %; HCT 37.5 % (39.0-53.0); HDW 2.71; Luc # (Auto) 0.06; Luc % (Auto) 0; Lymphocytes # (A) 0.9 k/uL (1.0-4.8); Lymphocytes % (A) 6 %; MCH 28.7 pg (25.0-35.0); MCHC 32.1 g/dL (31.0-37.0); MCV 89.2 fL (80.0-100.0); Monocytes # (A) 0.4 k/uL (0-1.0); Monocytes % (A) 2 %; Neutrophils # (A) 13.5 k/uL (1.3-7.7); Neutrophils % (A) 91 %; RDW 13.9 % (11.5-15.5); WBC 14.8 k/uL (3.8-10.6); WBC (Perox) 16.21
[2016-12-03 08:50] LABS: Anion Gap 13 mmol/L; Blood Urea Nitrogen 31 mg/dL (9-20); Carbon Dioxide 23 mmol/L (22-30); Chloride 102 mmol/L (98-107); Glucose 257 mg/dL (74-99); Non-African American GFR(MDRD) >60 (>60 ml/min/1.73 sqM); Phosphorous 3.8 mg/dL (2.5-4.5); Potassium 4.9 mmol/L (3.5-5.1); Sodium 138 mmol/L (137-145)
[2016-12-03 11:48] LABS: Glucose,Whole Blood 216 mg/dL (75-99)
--- NOTE | 2016-12-03 12:21 | P.PN ---
Subjective This is a very pleasant 66-year-old gentleman who was to see Dr. Watts has a new primary care physician. The patient was recently admitted to [facility] for dizziness and lightheadedness. His stress test was negative is reported to him. He has a history of CVA/TIA, diabetes mellitus, hypertension. He presented here with complaints of dizziness and shortness of breath on exertion. He has no prior history of chronic lung disease. He has a remote history of smoking. No history of asthma or emphysema. He is not any inhalers at home. He has been having ongoing issues with shortness of breath and dyspnea on exertion along with some wheezing. He is seen today in consultation on the regular medical floor. Currently, he is awake and alert in no acute distress. He states his breathing is easier today as compared to yesterday but he still gets quite short of breath with minimal activity. The chest x-ray revealed no acute pulmonary process. CT angiogram ruled out pulmonary embolism. He is seen again today 12/03/2016 in follow-up. He is awake and alert in no acute distress. He's been up ambulating in the room. He denies any worsening shortness of breath, cough or congestion. He has been afebrile. Maintaining good O2 saturations in the mid 90s on 2 L/m per nasal cannula. Objective - Vital Signs Vital signs: Vital Signs Temp 97.0 F L 12/03/16 07:00 Pulse 97 12/03/16 11:05 Resp 22 12/03/16 07:00 BP 129/82 12/03/16 07:00 Pulse Ox 96 12/03/16 07:00 Intake & Output 12/02/16 12/03/16 12/03/16 18:59 06:59 18:59 Intake Total 200 1100 240 Output Total 1700 2300 Balance -1500 -1200 240 Intake: Oral 200 1100 240 Output: Urine 1700 2300 Stool 0 Other: # Voids 1 # Bowel Movements 0 - Exam GENERAL EXAM: Alert, active, comfortable in no apparent distress. HEAD: Normocephalic. EYES: Normal reaction of pupils, equal size. NOSE: Clear with pink turbinates. THROAT: No erythema or exudates. NECK: No masses, no JVD. CHEST: No chest wall deformity. LUNGS: Equal air entry with no crackles, wheeze, rhonchi or dullness. CVS: S1 and S2 normal with no audible murmurs, regular rhythm. ABDOMEN: No hepatosplenomegaly, normal bowel sounds, no guarding or rigidity. SPINE: No scoliosis or deformity SKIN: No rashes CENTRAL NERVOUS SYSTEM: No focal deficits, tone is normal in all 4 extremities. Extremities: There is no significant peripheral edema. No clubbing, no cyanosis peripheral pulses are intact. - Labs CBC & Chem 7: 12/03/16 08:04 12/03/16 08:04 Labs: Abnormal Lab Results - Last 24 Hours (Table) 12/02/16 12/02/16 12/02/16 Range/Units 11:11 12:28 17:10 WBC (3.8-10.6) k/uL RBC (4.30-5.90) m/uL Hgb (13.0-17.5) gm/dL Hct (39.0-53.0) % Neutrophils # (1.3-7.7) k/uL Lymphocytes # (1.0-4.8) k/uL Sodium 135 L (137-145) mmol/L BUN 28 H (9-20) mg/dL Glucose 238 H (74-99) mg/dL POC Glucose (mg/dL) 196 H 244 H (75-99) mg/dL 12/02/16 12/03/16 12/03/16 Range/Units 20:45 07:10 08:04 WBC 14.8 H (3.8-10.6) k/uL RBC 4.20 L (4.30-5.90) m/uL Hgb 12.0 L (13.0-17.5) gm/dL Hct 37.5 L (39.0-53.0) % Neutrophils # 13.5 H (1.3-7.7) k/uL Lymphocytes # 0.9 L (1.0-4.8) k/uL Sodium (137-145) mmol/L BUN (9-20) mg/dL Glucose (74-99) mg/dL POC Glucose (mg/dL) 282 H 199 H (75-99) mg/dL 12/03/16 12/03/16 Range/Units 08:04 11:37 WBC (3.8-10.6) k/uL RBC (4.30-5.90) m/uL Hgb (13.0-17.5) gm/dL Hct (39.0-53.0) % Neutrophils # (1.3-7.7) k/uL Lymphocytes # (1.0-4.8) k/uL Sodium (137-145) mmol/L BUN 31 H (9-20) mg/dL Glucose 257 H (74-99) mg/dL POC Glucose (mg/dL) 216 H (75-99) mg/dL Assessment and Plan Plan: Impression: #1 Dizziness secondary to suspected orthostatic hypotension. #2 Dyspnea on exertion of unclear etiology. Chest x-ray and CAT scan revealed no acute pulmonary process. No pulmonary embolism. Remote history of smoking. #3 Hypertension. #4 Diabetes mellitus. Plan: The patient was seen and evaluated by Dr. Underwood. He is cleared for discharge from the pulmonary standpoint. He would benefit from an outpatient workup including full pulmonary function testing to the evaluate the suspected COPD and make further recommendations regarding maintenance medications. He'll continue on bronchodilators and a prednisone taper.
--- NOTE | 2016-12-03 12:33 | P.PN ---
Subjective Patient is still complaining of shortness of breath today. Continues to have wheezing. No significant cough. No fevers documented. Slight dizziness when he get up and walk around. Objective - Vital Signs Vital signs: Vital Signs Temp 97.0 F L 12/03/16 07:00 Pulse 97 12/03/16 11:05 Resp 22 12/03/16 07:00 BP 129/82 12/03/16 07:00 Pulse Ox 96 12/03/16 07:00 Intake & Output 12/02/16 12/03/16 12/03/16 18:59 06:59 18:59 Intake Total 200 1100 240 Output Total 1700 2300 Balance -1500 -1200 240 Intake: Oral 200 1100 240 Output: Urine 1700 2300 Stool 0 Other: # Voids 1 # Bowel Movements 0 - Exam General: The patient is awake and alert, in no distress Eye: there is normal conjunctiva bilaterally. Neck: The neck is supple, there is no JVD. Cardiovascular: Normal S1-S2, no S3-S4, no murmurs. Respiratory: Lungs are diminished with end-expiratory wheezing Gastrointestinal: Abdomen is soft, nontender Musculoskeletal: There is no pedal edema. Neurological:. Speech is normal. Skin: Skin is warm and dry - Labs CBC & Chem 7: 12/03/16 08:04 12/03/16 08:04 Labs: Abnormal Lab Results - Last 24 Hours (Table) 12/02/16 12/02/16 12/02/16 Range/Units 12:28 17:10 20:45 WBC (3.8-10.6) k/uL RBC (4.30-5.90) m/uL Hgb (13.0-17.5) gm/dL Hct (39.0-53.0) % Neutrophils # (1.3-7.7) k/uL Lymphocytes # (1.0-4.8) k/uL BUN (9-20) mg/dL Glucose (74-99) mg/dL POC Glucose (mg/dL) 196 H 244 H 282 H (75-99) mg/dL 12/03/16 12/03/16 12/03/16 Range/Units 07:10 08:04 08:04 WBC 14.8 H (3.8-10.6) k/uL RBC 4.20 L (4.30-5.90) m/uL Hgb 12.0 L (13.0-17.5) gm/dL Hct 37.5 L (39.0-53.0) % Neutrophils # 13.5 H (1.3-7.7) k/uL Lymphocytes # 0.9 L (1.0-4.8) k/uL BUN 31 H (9-20) mg/dL Glucose 257 H (74-99) mg/dL POC Glucose (mg/dL) 199 H (75-99) mg/dL 12/03/16 Range/Units 11:37 WBC (3.8-10.6) k/uL RBC (4.30-5.90) m/uL Hgb (13.0-17.5) gm/dL Hct (39.0-53.0) % Neutrophils # (1.3-7.7) k/uL Lymphocytes # (1.0-4.8) k/uL BUN (9-20) mg/dL Glucose (74-99) mg/dL POC Glucose (mg/dL) 216 H (75-99) mg/dL Assessment and Plan Plan: 1. Dizziness: Most likely attributed to orthostatic hypotension as patient admits that he got up abruptly from a laying position. Patient was hydrated overnight. Repeat orthostatic blood pressure this morning was negative. Patient remained in sinus rhythm on telemetry monitoring. He recently had a stress echocardiogram at [facility] that was reported negative. 2. Reactive airway disease with diffuse wheezing: Currently on IV Solu-Medrol and bronchodilators. Pulmonology consulted for further evaluation. Patient may benefit from a formal PFT as an outpatient. Chest x-ray with no acute findings 3. Essential hypertension: Blood pressure well-controlled 4. Mixed hyperlipidemia 5. Nonobstructive coronary artery disease noticed on left heart catheterization in 2014: Managed medically 6. DVT prophylaxis with subcu heparin 7. Steroid-induced leukocytosis Plan for today. Continue bronchodilators and steroids. Schedule albuterol every 4 hours as patient continued to have diffuse wheezing in his lungs are tight. Appreciate vocational rehab consultant recommendations. Encouraged ambulation. Repeat lab work in the morning.
[2016-12-03] MEDS: ALBUTEROL NEBULIZED 2.5 MG/3 ML INHALATION SCH ×2 (16:08→20:12)
[2016-12-03 17:04] LABS: Glucose,Whole Blood 218 mg/dL (75-99)
[2016-12-03] MEDS: BISACODYL 5 MG TABLET.DR PO PRN (17:24)
[2016-12-03 21:21] LABS: Glucose,Whole Blood 187 mg/dL (75-99)
[2016-12-03] MEDS: FAMOTIDINE 20 MG TAB PO SCH (21:40)
[2016-12-03] MEDS: DOCUSATE 100 MG CAP PO SCH (21:40)
[2016-12-03] MEDS ORDERED: ACETAMINOPHEN TAB 325 MG TAB PO PRN (22:29)
[2016-12-04] MEDS: ALBUTEROL NEBULIZED 2.5 MG/3 ML INHALATION SCH ×7 (00:12→19:13)
[2016-12-04] MEDS: methylPREDNISolone SOD SUCCI 125 MG/2 ML VIAL IV SCH ×5 (00:22→23:41)
[2016-12-04 07:36] LABS: Glucose,Whole Blood 208 mg/dL (75-99)
[2016-12-04] MEDS: FAMOTIDINE 20 MG TAB PO SCH ×2 (07:53→20:17)
[2016-12-04] MEDS: DOCUSATE 100 MG CAP PO SCH ×2 (07:53→20:17)
[2016-12-04] MEDS: INSULIN LISPRO (humaLOG) 300 UNIT/3 ML VIAL SQ SCH ×5 (07:53→20:25)
[2016-12-04] MEDS: metFORMIN 500 MG TAB PO SCH ×2 (07:53→17:58)
[2016-12-04] MEDS: amLODIPine 10 MG TAB PO SCH (07:53)
[2016-12-04] MEDS: ASPIRIN 325 MG TAB PO SCH (07:53)
[2016-12-04] MEDS: BISACODYL 5 MG TABLET.DR PO PRN (07:58)
[2016-12-04 08:53] LABS: Basophils % (A) 0 %; CHCM 32.5; Eosinophils % (A) 0 %; HCT 39.2 % (39.0-53.0); HDW 2.61; HGB 12.5 gm/dL (13.0-17.5); Luc # (Auto) 0.07; Luc % (Auto) 1; Lymphocytes # (A) 0.7 k/uL (1.0-4.8); Lymphocytes % (A) 5 %; MCH 28.5 pg (25.0-35.0); MCHC 31.8 g/dL (31.0-37.0); MCV 89.5 fL (80.0-100.0); Mean Platelet Volume 6.9; Monocytes # (A) 0.5 k/uL (0-1.0); Monocytes % (A) 4 %; Neutrophils # (A) 11.8 k/uL (1.3-7.7); Neutrophils % (A) 90 %; RBC 4.38 m/uL (4.30-5.90); RDW 13.9 % (11.5-15.5); WBC 13.1 k/uL (3.8-10.6); WBC (Perox) 13.82
[2016-12-04 09:08] LABS: Anion Gap 14 mmol/L; Blood Urea Nitrogen 35 mg/dL (9-20); Calcium 9.9 mg/dL (8.4-10.2); Carbon Dioxide 23 mmol/L (22-30); Chloride 101 mmol/L (98-107); Glucose 221 mg/dL (74-99); Magnesium 2.1 mg/dL (1.6-2.3); Non-African American GFR(MDRD) >60 (>60 ml/min/1.73 sqM); Phosphorous 3.6 mg/dL (2.5-4.5); Potassium 4.6 mmol/L (3.5-5.1); Sodium 138 mmol/L (137-145)
[2016-12-04 11:46] LABS: Glucose,Whole Blood 247 mg/dL (75-99)
--- NOTE | 2016-12-04 12:32 | P.PN ---
Subjective Patient is still reporting shortness of breath. His O2 sats this morning is 92 % on 2 L of oxygen at rest. Objective - Vital Signs Vital signs: Vital Signs Temp 97.2 F L 12/04/16 07:00 Pulse 96 12/04/16 08:50 Resp 22 12/04/16 07:00 BP 135/82 12/04/16 07:00 Pulse Ox 93 L 12/04/16 07:00 Intake & Output 12/03/16 12/04/16 12/04/16 18:59 06:59 18:59 Intake Total 480 875 360 Output Total 700 1800 Balance -220 -925 360 Intake: Oral 480 875 360 Output: Urine 700 1800 Stool 0 Other: Voiding Method Urinal # Voids 2 # Bowel Movements 0 - Exam General: The patient is awake and alert, in no distress Eye: there is normal conjunctiva bilaterally. Neck: The neck is supple, there is no JVD. Cardiovascular: Normal S1-S2, no S3-S4, no murmurs. Respiratory: Lungs are diminished with end-expiratory wheezing Gastrointestinal: Abdomen is soft, nontender Musculoskeletal: There is no pedal edema. Neurological:. Speech is normal. Skin: Skin is warm and dry - Labs CBC & Chem 7: 12/04/16 07:48 12/04/16 07:48 Labs: Abnormal Lab Results - Last 24 Hours (Table) 12/03/16 12/03/16 12/04/16 Range/Units 16:57 20:58 07:01 WBC (3.8-10.6) k/uL Hgb (13.0-17.5) gm/dL Neutrophils # (1.3-7.7) k/uL Lymphocytes # (1.0-4.8) k/uL BUN (9-20) mg/dL Glucose (74-99) mg/dL POC Glucose (mg/dL) 218 H 187 H 208 H (75-99) mg/dL 12/04/16 12/04/16 12/04/16 Range/Units 07:48 07:48 11:28 WBC 13.1 H (3.8-10.6) k/uL Hgb 12.5 L (13.0-17.5) gm/dL Neutrophils # 11.8 H (1.3-7.7) k/uL Lymphocytes # 0.7 L (1.0-4.8) k/uL BUN 35 H (9-20) mg/dL Glucose 221 H (74-99) mg/dL POC Glucose (mg/dL) 247 H (75-99) mg/dL Assessment and Plan Plan: 1. Dizziness: Most likely attributed to orthostatic hypotension as patient admits that he got up abruptly from a laying position. Patient was hydrated overnight. Repeat orthostatic blood pressure this morning was negative. Patient remained in sinus rhythm on telemetry monitoring. He recently had a stress echocardiogram at [facility] that was reported negative. 2. Reactive airway disease with diffuse wheezing: Currently on IV Solu-Medrol and bronchodilators. Pulmonology consulted for further evaluation. Patient may benefit from a formal PFT as an outpatient. Chest x-ray with no acute findings 3. Essential hypertension: Blood pressure well-controlled 4. Mixed hyperlipidemia 5. Nonobstructive coronary artery disease noticed on left heart catheterization in 2014: Managed medically 6. DVT prophylaxis with subcu heparin 7. Steroid-induced leukocytosis Plan for today. Check O2 saturation on room air at rest and with ambulation. Continue bronchodilators and steroids. Schedule albuterol every 4 hours as patient continued to have diffuse wheezing in his lungs are tight. Appreciate communications consultant recommendations. Encouraged ambulation. Repeat lab work in the morning.
--- NOTE | 2016-12-04 14:29 | P.PN ---
Subjective This is a very pleasant 66-year-old gentleman who was to see Dr. Watts has a new primary care physician. The patient was recently admitted to [facility] for dizziness and lightheadedness. His stress test was negative is reported to him. He has a history of CVA/TIA, diabetes mellitus, hypertension. He presented here with complaints of dizziness and shortness of breath on exertion. He has no prior history of chronic lung disease. He has a remote history of smoking. No history of asthma or emphysema. He is not any inhalers at home. He has been having ongoing issues with shortness of breath and dyspnea on exertion along with some wheezing. He is seen today in consultation on the regular medical floor. Currently, he is awake and alert in no acute distress. He states his breathing is easier today as compared to yesterday but he still gets quite short of breath with minimal activity. The chest x-ray revealed no acute pulmonary process. CT angiogram ruled out pulmonary embolism. He is seen again today 12/04/2016 in follow-up on the regular medical floor. Currently sitting up in bed. He is awake and alert in no acute distress. He denies any worsening shortness of breath, cough or congestion. He's been afebrile. Hemodynamically stable.containing good O2 saturations in the low 90s on 2 L/m per nasal cannula. Objective - Vital Signs Vital signs: Vital Signs Temp 97.2 F L 12/04/16 07:00 Pulse 94 12/04/16 13:17 Resp 22 12/04/16 07:00 BP 135/82 12/04/16 07:00 Pulse Ox 93 L 12/04/16 07:00 Intake & Output 12/03/16 12/04/16 12/04/16 18:59 06:59 18:59 Intake Total 480 875 360 Output Total 700 1800 Balance -220 -925 360 Intake: Oral 480 875 360 Output: Urine 700 1800 Stool 0 Other: Voiding Method Urinal # Voids 2 # Bowel Movements 0 - Exam GENERAL EXAM: Alert, active, comfortable in no apparent distress. HEAD: Normocephalic. EYES: Normal reaction of pupils, equal size. NOSE: Clear with pink turbinates. THROAT: No erythema or exudates. NECK: No masses, no JVD. CHEST: No chest wall deformity. LUNGS: Equal air entry with no crackles, wheeze, rhonchi or dullness. CVS: S1 and S2 normal with no audible murmurs, regular rhythm. ABDOMEN: No hepatosplenomegaly, normal bowel sounds, no guarding or rigidity. SPINE: No scoliosis or deformity SKIN: No rashes CENTRAL NERVOUS SYSTEM: No focal deficits, tone is normal in all 4 extremities. Extremities: There is no significant peripheral edema. No clubbing, no cyanosis peripheral pulses are intact. - Labs CBC & Chem 7: 12/04/16 07:48 12/04/16 07:48 Labs: Abnormal Lab Results - Last 24 Hours (Table) 12/03/16 12/03/16 12/04/16 Range/Units 16:57 20:58 07:01 WBC (3.8-10.6) k/uL Hgb (13.0-17.5) gm/dL Neutrophils # (1.3-7.7) k/uL Lymphocytes # (1.0-4.8) k/uL BUN (9-20) mg/dL Glucose (74-99) mg/dL POC Glucose (mg/dL) 218 H 187 H 208 H (75-99) mg/dL 12/04/16 12/04/16 12/04/16 Range/Units 07:48 07:48 11:28 WBC 13.1 H (3.8-10.6) k/uL Hgb 12.5 L (13.0-17.5) gm/dL Neutrophils # 11.8 H (1.3-7.7) k/uL Lymphocytes # 0.7 L (1.0-4.8) k/uL BUN 35 H (9-20) mg/dL Glucose 221 H (74-99) mg/dL POC Glucose (mg/dL) 247 H (75-99) mg/dL Assessment and Plan Plan: Impression: #1 Dizziness secondary to suspected orthostatic hypotension. #2 Dyspnea on exertion of unclear etiology. Chest x-ray and CAT scan revealed no acute pulmonary process. No pulmonary embolism. Remote history of smoking. #3 Hypertension. #4 Diabetes mellitus. Plan: The patient was seen and evaluated by Dr. Underwood. The patient has been somewhat slow to progress. He would benefit from an outpatient workup including full pulmonary function testing to the evaluate the suspected COPD and make further recommendations regarding maintenance medications. He'll continue on bronchodilators and a Solu-Medrol. We will increase his activity as tolerated. Continue to follow make further recommendations based on his clinical status.
[2016-12-04 16:53] LABS: Glucose,Whole Blood 210 mg/dL (75-99)
[2016-12-04 20:43] LABS: Glucose,Whole Blood 255 mg/dL (75-99)
[2016-12-05] MEDS: ALBUTEROL NEBULIZED 2.5 MG/3 ML INHALATION SCH ×4 (04:23→11:24)
[2016-12-05] MEDS: methylPREDNISolone SOD SUCCI 125 MG/2 ML VIAL IV SCH ×2 (06:54→12:15)
[2016-12-05 07:44] LABS: Glucose,Whole Blood 205 mg/dL (75-99)
[2016-12-05] MEDS: ASPIRIN 325 MG TAB PO SCH (08:10)
[2016-12-05] MEDS: FAMOTIDINE 20 MG TAB PO SCH (08:10)
[2016-12-05] MEDS: amLODIPine 10 MG TAB PO SCH (08:10)
[2016-12-05] MEDS: DOCUSATE 100 MG CAP PO SCH (08:10)
[2016-12-05] MEDS: INSULIN LISPRO (humaLOG) 300 UNIT/3 ML VIAL SQ SCH ×2 (08:10→12:15)
[2016-12-05] MEDS: metFORMIN 500 MG TAB PO SCH (08:10)
[2016-12-05 09:03] LABS: Basophils % (A) 0 %; CH 28.9; CHCM 31.8; Eosinophils % (A) 0 %; HDW 2.55; HGB 12.6 gm/dL (13.0-17.5); Luc # (Auto) 0.09; Luc % (Auto) 1; Lymphocytes # (A) 0.7 k/uL (1.0-4.8); Lymphocytes % (A) 6 %; MCH 28.6 pg (25.0-35.0); MCHC 31.4 g/dL (31.0-37.0); MCV 91.1 fL (80.0-100.0); Mean Platelet Volume 6.8; Monocytes # (A) 0.4 k/uL (0-1.0); Monocytes % (A) 4 %; Neutrophils # (A) 9.1 k/uL (1.3-7.7); Neutrophils % (A) 89 %; RBC 4.39 m/uL (4.30-5.90); RDW 13.8 % (11.5-15.5); WBC 10.3 k/uL (3.8-10.6); WBC (Perox) 11.01
[2016-12-05 09:16] LABS: Anion Gap 10 mmol/L; Blood Urea Nitrogen 36 mg/dL (9-20); Calcium 9.6 mg/dL (8.4-10.2); Carbon Dioxide 26 mmol/L (22-30); Chloride 98 mmol/L (98-107); Glucose 274 mg/dL (74-99); Magnesium 2.1 mg/dL (1.6-2.3); Non-African American GFR(MDRD) >60 (>60 ml/min/1.73 sqM); Phosphorous 3.7 mg/dL (2.5-4.5); Potassium 4.9 mmol/L (3.5-5.1); Sodium 134 mmol/L (137-145)
[2016-12-05 10:30] VITALS: BP 133/91; RESP 19; TEMP 96.9
[2016-12-05 11:28] VITALS: PULSE 80
[2016-12-05 12:00] LABS: Glucose,Whole Blood 202 mg/dL (75-99)
--- NOTE | 2016-12-05 12:14 | P.DS ---
Providers Date of admission: 12/04/16 17:34 Expected date of discharge: 12/05/16 Attending physician: Brett Esparza Primary care physician: Carmela Watts [facility] Course: This is 66-year-old gentleman with past medical history noted below who presented to the hospital initially with worsening dizziness and shortness of breath. Patient was admitted to the medical floor and was treated for the below mentioned medical problems. His clinical condition improved significantly throughout his hospital stay. On the day of discharge, patient was able to get up and ambulate in the hallway with no difficulty. O2 sats remained above 92%. 1. Dizziness: Most likely attributed to orthostatic hypotension as patient admits that he got up abruptly from a laying position. Patient was hydrated. Repeat orthostatic blood pressure was negative. Patient remained in sinus rhythm on telemetry monitoring. He recently had a stress echocardiogram at [facility] that was reported negative. 2. Reactive airway disease with diffuse wheezing: Patient improved with IV steroids and bronchodilator. He will be discharged home with a short course of taper prednisone. Patient may benefit from a formal PFT as an outpatient. Chest x-ray with no acute findings 3. Essential hypertension: Blood pressure well-controlled 4. Mixed hyperlipidemia 5. Nonobstructive coronary artery disease noticed on left heart catheterization in 2015: Managed medically Patient Condition at Discharge: Stable Plan - Discharge Summary New Discharge Prescriptions: Albuterol Inhaler [Ventolin Hfa Inhaler] 1 - 2 puff INHALATION Q6HR PRN #1 inhaler PRN Reason: Shortness Of Breath predniSONE 10 mg PO DIRECTED #30 tab Discharge Medication List Aspirin EC [Ecotrin] 325 mg PO DAILY #30 11/14/14 [Rx] amLODIPine [Norvasc] 10 mg PO DAILY #30 tab 11/14/14 [Rx] metFORMIN HCL [Glucophage] 500 mg PO AC-BID 12/01/16 [History] Albuterol Inhaler [Ventolin Hfa Inhaler] 1 - 2 puff INHALATION Q6HR PRN #1 inhaler 12/05/16 [Rx] predniSONE 10 mg PO DIRECTED #30 tab 12/05/16 [Rx] Follow up Appointment(s)/Referral(s): Carmela Watts MD [Primary Care Provider] - 1-2 days Rod Underwood DO [Doctor of Osteopathic Medicine] - 1 Week Patient Instructions/Handouts: COPD (Chronic Obstructive Pulmonary Disease) (DC ) Activity/Diet/Wound Care/Special Instructions: Diabetic education follow up at [facility] as ordered. Diabetic, cardiac diet. Diabetic folder given. Discharge Disposition: HOME SELF-CARE
--- NOTE | 2016-12-05 13:53 | P.PN ---
Subjective This is a very pleasant 66-year-old gentleman who was to see Dr. Watts has a new primary care physician. The patient was recently admitted to [facility] for dizziness and lightheadedness. His stress test was negative is reported to him. He has a history of CVA/TIA, diabetes mellitus, hypertension. He presented here with complaints of dizziness and shortness of breath on exertion. He has no prior history of chronic lung disease. He has a remote history of smoking. No history of asthma or emphysema. He is not any inhalers at home. He has been having ongoing issues with shortness of breath and dyspnea on exertion along with some wheezing. He is seen today in consultation on the regular medical floor. Currently, he is awake and alert in no acute distress. He states his breathing is easier today as compared to yesterday but he still gets quite short of breath with minimal activity. The chest x-ray revealed no acute pulmonary process. CT angiogram ruled out pulmonary embolism. He is seen again today 12/04/2016 in follow-up on the regular medical floor. Currently sitting up in bed. He is awake and alert in no acute distress. He denies any worsening shortness of breath, cough or congestion. He's been afebrile. Hemodynamically stable.containing good O2 saturations in the low 90s on 2 L/m per nasal cannula. The patient is seen again today 12/05/2016 in follow-up on the regular medical floor. He is awake and alert in no acute distress. He denies any worsening shortness of breath, cough or congestion. He ambulated down the hallway and was told maintaining good O2 saturations in the low 90s on room air. He is anxious to go home. Objective - Vital Signs Vital signs: Vital Signs Temp 96.9 F L 12/05/16 07:00 Pulse 80 12/05/16 11:35 Resp 19 12/05/16 07:00 BP 133/91 12/05/16 07:00 Pulse Ox 91 L 12/05/16 07:00 Intake & Output 12/04/16 12/05/16 12/05/16 18:59 06:59 18:59 Intake Total 360 1020 Output Total 1600 Balance 360 -580 Intake: Oral 360 1020 Output: Urine 1600 Other: Voiding Method Urinal - Exam GENERAL EXAM: Alert, active, comfortable in no apparent distress. HEAD: Normocephalic. EYES: Normal reaction of pupils, equal size. NOSE: Clear with pink turbinates. THROAT: No erythema or exudates. NECK: No masses, no JVD. CHEST: No chest wall deformity. LUNGS: Equal air entry with no crackles, wheeze, rhonchi or dullness. CVS: S1 and S2 normal with no audible murmurs, regular rhythm. ABDOMEN: No hepatosplenomegaly, normal bowel sounds, no guarding or rigidity. SPINE: No scoliosis or deformity SKIN: No rashes CENTRAL NERVOUS SYSTEM: No focal deficits, tone is normal in all 4 extremities. Extremities: There is no significant peripheral edema. No clubbing, no cyanosis peripheral pulses are intact. - Labs CBC & Chem 7: 12/05/16 08:21 12/05/16 08:21 Labs: Abnormal Lab Results - Last 24 Hours (Table) 12/04/16 12/05/16 12/05/16 Range/Units 20:23 07:42 08:21 Hgb 12.6 L (13.0-17.5) gm/dL Neutrophils # 9.1 H (1.3-7.7) k/uL Lymphocytes # 0.7 L (1.0-4.8) k/uL Sodium (137-145) mmol/L BUN (9-20) mg/dL Glucose (74-99) mg/dL POC Glucose (mg/dL) 255 H 205 H (75-99) mg/dL 12/05/16 12/05/16 Range/Units 08:21 11:57 Hgb (13.0-17.5) gm/dL Neutrophils # (1.3-7.7) k/uL Lymphocytes # (1.0-4.8) k/uL Sodium 134 L (137-145) mmol/L BUN 36 H (9-20) mg/dL Glucose 274 H (74-99) mg/dL POC Glucose (mg/dL) 202 H (75-99) mg/dL Assessment and Plan Plan: Impression: #1 Dizziness secondary to suspected orthostatic hypotension. #2 Dyspnea on exertion of unclear etiology. Chest x-ray and CAT scan revealed no acute pulmonary process. No pulmonary embolism. Remote history of smoking. #3 Hypertension. #4 Diabetes mellitus. Plan: The patient was seen and evaluated by Dr. Underwood. He is cleared for discharge from the pulmonary standpoint. He would benefit from an outpatient workup including full pulmonary function testing to the evaluate the suspected COPD and make further recommendations regarding maintenance medications. He'll continue on bronchodilators and a complete a prednisone taper. He will follow- up in our office in 1 week's time. He is however encouraged to call sooner with any recurrence of symptoms or other questions or concerns.
== END 2016-12-05 14:37 | disposition home or self-care (01) | DRG 192 ==
LOC: EC 22:30 → INTOOBSV 12-01 01:06 → 4MS4W 12-01 01:06 → OBSVTOIN 12-04 17:34
PROVIDERS: ADMIT Internal Medicine; ATTEND Internal Medicine
DX: J44.9 Chronic obstructive pulmonary disease, unspecified (principal); I10 Essential (primary) hypertension; E11.9 Type 2 diabetes mellitus without complications; D72.829 Elevated white blood cell count, unspecified; E78.2 Mixed hyperlipidemia; I95.1 Orthostatic hypotension; I25.10 Atherosclerotic heart disease of native coronary artery without angina pectoris; R01.1 Cardiac murmur, unspecified; T38.0X5A Adverse effect of glucocorticoids and synthetic analogues, initial encounter; Z79.899 Other long term (current) drug therapy; Z79.82 Long term (current) use of aspirin; Z79.84 Long term (current) use of oral hypoglycemic drugs; Z87.891 Personal history of nicotine dependence; Z82.49 Family history of ischemic heart disease and other diseases of the circulatory system
CPT/HCPCS: 36415; 71020; 71275; 80048; 80053; 82550; 82553; 83036; 83735; 83880; 84100; 84484; 85025; 85379; 85610; 85730; 93005; 94640; 94760; 96360; 96361; 96374; 96376; 99291

== ENCOUNTER 2018-01-16 15:55 | Inpatient (IN) | payer MEDICARE ==
--- NOTE | 2018-01-16 16:23 | ED ---
General Adult HPI - General Chief complaint: Chest Pain Stated complaint: CP Time Seen by Provider: 01/16/18 16:01 Source: patient, RN notes reviewed Mode of arrival: ambulatory Limitations: no limitations - History of Present Illness Initial comments: 67-year-old male presented for evaluation of elevated blood pressure and chest tightness. Patient has history of hypertension, has been compliant with his medication. He felt the day today he noted some central chest tightness. No radiating nature to this tightness. No nausea or diaphoresis. His blood pressure had been elevated in the 170s systolic. He also had some dyspnea associated with this. No lower extremity pain or swelling. No abdominal pain. Pain resolved at the time my evaluation. Patient denies cough or fever associated with his dyspnea. - Related Data Home Medications Medication Instructions Recorded Confirmed Aspirin EC [Ecotrin] 325 mg PO QAM 01/16/18 01/16/18 Losartan [Cozaar] 50 mg PO BID 01/16/18 01/16/18 Pravastatin Sodium [Pravachol] 40 mg PO QAM 01/16/18 01/16/18 amLODIPine [Norvasc] 10 mg PO HS 01/16/18 01/16/18 metFORMIN HCL 1,000 mg PO BID 01/16/18 01/16/18 Allergies Allergy/AdvReac Type Severity Reaction Status Date / Time orphenadrine citrate Allergy Rash/Hives Verified 01/16/18 16:45 [From Norflex] Review of Systems ROS Statement: Those systems with pertinent positive or pertinent negative responses have been documented in the HPI. ROS Other: All systems not noted in ROS Statement are negative. Past Medical History Past Medical History: CVA/TIA, Diabetes Mellitus, Hypertension Additional Past Medical History / Comment(s): TIA LONG TIME AGO, heart murmur History of Any Multi-Drug Resistant Organisms: None Reported Past Surgical History: Adenoidectomy, Hernia Repair, Tonsillectomy Additional Past Surgical History / Comment(s): RT INGUINAL X4 SEPARATE SX Past Anesthesia/Blood Transfusion Reactions: Motion Sickness, Postoperative Nausea & Vomiting (PONV) Past Psychological History: No Psychological Hx Reported Smoking Status: Former smoker Past Alcohol Use History: None Reported Past Drug Use History: None Reported - Past Family History Father Family Medical History: CVA/TIA, Myocardial Infarction ([place]) Additional Family Medical History / Comment(s): AT AGE 74 FROM [place] Mother Family Medical History: Diabetes Mellitus Additional Family Medical History / Comment(s): AT AGE 55 COMPLICATIONS FROM DIABETES General Exam Limitations: no limitations General appearance: alert, in no apparent distress Head exam: Present: atraumatic, normocephalic Eye exam: Present: normal appearance, PERRL ENT exam: Present: normal exam Neck exam: Present: normal inspection. Absent: tenderness, meningismus Respiratory exam: Present: normal lung sounds bilaterally. Absent: respiratory distress Cardiovascular Exam: Present: tachycardia, irregular rhythm GI/Abdominal exam: Present: soft, distended. Absent: tenderness, guarding Extremities exam: Present: normal inspection, normal capillary refill. Absent: pedal edema, calf tenderness Neurological exam: Present: alert, oriented X3, CN II-XII intact. Absent: motor sensory deficit Psychiatric exam: Present: normal affect. Absent: normal mood Skin exam: Present: warm, dry, intact. Absent: cyanosis, diaphoretic Course Vital Signs 01/16/18 01/16/18 01/16/18 16:04 17:09 18:51 Temperature 97.9 F 98.0 F Pulse Rate 126 H 89 97 Respiratory 20 18 18 Rate Blood Pressure 189/88 143/86 162/81 O2 Sat by Pulse 96 99 97 Oximetry EKG Findings - EKG Comments: EKG Findings:: EKG sinus tachycardia with PAC, left ventricular hypertrophy, ventricular rate of 110, MA interval 176, QS duration 96, QTC 462, no ST segment elevation, there is irregularity now complex. Medical Decision Making - Medical Decision Making 67 yo male presenting with chest pressure and hypertension. While in emergency prompt patient's blood pressure normalizes without treatment. Chest x-ray negative for focal airspace disease. CBC within normal limits, d-dimer and troponin are negative, electrolytes negative. Patient is chest pain-free while emergency department. He will be placed in observation for serial cardiac enzymes and cardiology consult. Case discussed with Dr. Martínez, covering for Dr. Esparza, he will accept admission. - Lab Data Result diagrams: 01/16/18 15:35 01/16/18 15:35 Lab Results 01/16/18 01/16/18 01/16/18 Range/Units 15:35 15:35 15:35 WBC 7.4 (3.8-10.6) k/uL RBC 4.57 (4.30-5.90) m/uL Hgb 13.4 (13.0-17.5) gm/dL Hct 40.3 (39.0-53.0) % MCV 88.0 (80.0-100.0) fL MCH 29.3 (25.0-35.0) pg MCHC 33.3 (31.0-37.0) g/dL RDW 13.6 (11.5-15.5) % Plt Count 214 (150-450) k/uL Neutrophils % 63 % Lymphocytes % 27 % Monocytes % 6 % Eosinophils % 2 % Basophils % 0 % Neutrophils # 4.6 (1.3-7.7) k/uL Lymphocytes # 2.0 (1.0-4.8) k/uL Monocytes # 0.4 (0-1.0) k/uL Eosinophils # 0.2 (0-0.7) k/uL Basophils # 0.0 (0-0.2) k/uL PT (9.0-12.0) sec INR (<1.2) APTT (22.0-30.0) sec D-Dimer (<0.60) mg/L FEU Sodium 138 (137-145) mmol/L Potassium 4.5 (3.5-5.1) mmol/L Chloride 100 (98-107) mmol/L Carbon Dioxide 22 (22-30) mmol/L Anion Gap 16 mmol/L BUN 27 H (9-20) mg/dL Creatinine 0.80 (0.66-1.25) mg/dL Est GFR (CKD-EPI)AfAm >90 (>60 ml/min/1.73 sqM) Est GFR (CKD-EPI)NonAf >90 (>60 ml/min/1.73 sqM) Glucose 205 H (74-99) mg/dL Calcium 10.1 (8.4-10.2) mg/dL Magnesium 1.8 (1.6-2.3) mg/dL Total Bilirubin 0.5 (0.2-1.3) mg/dL AST 26 (17-59) U/L ALT 17 L (21-72) U/L Alkaline Phosphatase 77 (38-126) U/L Total Creatine Kinase 105 (55-170) U/L CK-MB (CK-2) 1.4 (0.0-2.4) ng/mL CK-MB (CK-2) Rel Index 1.3 Troponin I <0.012 (0.000-0.034) ng/mL NT-Pro-B Natriuret Pep pg/mL Total Protein 7.6 (6.3-8.2) g/dL Albumin 4.4 (3.5-5.0) g/dL 01/16/18 01/16/18 Range/Units 15:35 18:15 WBC (3.8-10.6) k/uL RBC (4.30-5.90) m/uL Hgb (13.0-17.5) gm/dL Hct (39.0-53.0) % MCV (80.0-100.0) fL MCH (25.0-35.0) pg MCHC (31.0-37.0) g/dL RDW (11.5-15.5) % Plt Count (150-450) k/uL Neutrophils % % Lymphocytes % % Monocytes % % Eosinophils % % Basophils % % Neutrophils # (1.3-7.7) k/uL Lymphocytes # (1.0-4.8) k/uL Monocytes # (0-1.0) k/uL Eosinophils # (0-0.7) k/uL Basophils # (0-0.2) k/uL PT 9.7 (9.0-12.0) sec INR 1.0 (<1.2) APTT 23.6 (22.0-30.0) sec D-Dimer 0.37 (<0.60) mg/L FEU Sodium (137-145) mmol/L Potassium (3.5-5.1) mmol/L Chloride (98-107) mmol/L Carbon Dioxide (22-30) mmol/L Anion Gap mmol/L BUN (9-20) mg/dL Creatinine (0.66-1.25) mg/dL Est GFR (CKD-EPI)AfAm (>60 ml/min/1.73 sqM) Est GFR (CKD-EPI)NonAf (>60 ml/min/1.73 sqM) Glucose (74-99) mg/dL Calcium (8.4-10.2) mg/dL Magnesium (1.6-2.3) mg/dL Total Bilirubin (0.2-1.3) mg/dL AST (17-59) U/L ALT (21-72) U/L Alkaline Phosphatase (38-126) U/L Total Creatine Kinase (55-170) U/L CK-MB (CK-2) (0.0-2.4) ng/mL CK-MB (CK-2) Rel Index Troponin I (0.000-0.034) ng/mL NT-Pro-B Natriuret Pep 106 pg/mL Total Protein (6.3-8.2) g/dL Albumin (3.5-5.0) g/dL Disposition Clinical Impression: Chest pain Disposition: ADMITTED IP TO THIS HOSP Condition: Stable Referrals: Carmela Watts MD [Primary Care Provider] - 1-2 days Decision to Admit Reason: Admit from EC Decision Date: 01/16/18 Decision Time: 20:08
[2018-01-16] MEDS ORDERED: ASPIRIN 325 MG TAB PO STA (16:54)
[2018-01-16] MEDS ORDERED: SODIUM CHLORIDE 0.9% 500 ML IV ONE (16:54)
[2018-01-16 16:55] LABS: Basophils % (A) 0 %; Eosinophils # (A) 0.2 k/uL (0-0.7); Eosinophils % (A) 2 %; HCT 40.3 % (39.0-53.0); HGB 13.4 gm/dL (13.0-17.5); Lymphocytes % (A) 27 %; MCH 29.3 pg (25.0-35.0); MCHC 33.3 g/dL (31.0-37.0); Mean Platelet Volume 7.1; Monocytes # (A) 0.4 k/uL (0-1.0); Monocytes % (A) 6 %; Neutrophils # (A) 4.6 k/uL (1.3-7.7); Neutrophils % (A) 63 %; Platelet Count 214 k/uL (150-450); RBC 4.57 m/uL (4.30-5.90); RDW 13.6 % (11.5-15.5); WBC 7.4 k/uL (3.8-10.6)
--- NOTE | 2018-01-16 17:08 | XR ---
EXAMINATION TYPE: XR chest 2V DATE OF EXAM: 01/16/2018 COMPARISON: 11/30/2016 HISTORY: Chest pain TECHNIQUE: Frontal and lateral views of the chest are obtained. FINDINGS: Heart is normal. Lungs are clear. There is no heart failure. There are chest leads. Thorac ic aorta is atheromatous. The bony thorax appears intact. IMPRESSION: No active cardiopulmonary disease. No change.
[2018-01-16 17:16] LABS: Creatine Kinase 105 U/L (55-170)
[2018-01-16 17:17] LABS: ALT 17 U/L (21-72); AST 26 U/L (17-59); Albumin 4.4 g/dL (3.5-5.0); Alkaline Phosphatase 77 U/L (38-126); Anion Gap 16 mmol/L; Blood Urea Nitrogen 27 mg/dL (9-20); Calcium 10.1 mg/dL (8.4-10.2); Carbon Dioxide 22 mmol/L (22-30); Chloride 100 mmol/L (98-107); Glucose 205 mg/dL (74-99); Magnesium 1.8 mg/dL (1.6-2.3); Potassium 4.5 mmol/L (3.5-5.1); Sodium 138 mmol/L (137-145); Total Bilirubin 0.5 mg/dL (0.2-1.3); Total Protein 7.6 g/dL (6.3-8.2)
[2018-01-16 17:28] LABS: Creatine Kinase MB 1.4 ng/mL (0.0-2.4); Troponin I <0.012 ng/mL (0.000-0.034)
[2018-01-16 18:41] LABS: D-Dimer 0.37 mg/L FEU (<0.60); Prothrombin Time 9.7 sec (9.0-12.0)
[2018-01-16 18:42] LABS: Partial Thromboplastin Time 23.6 sec (22.0-30.0)
[2018-01-16] MEDS ORDERED: NALOXONE 0.4 MG/ML 1 ML VIAL IV PRN (20:04)
[2018-01-16] MEDS ORDERED: ONDANSETRON 4 MG/2 ML VIAL IVP PRN (20:04)
[2018-01-16 20:56] VITALS: BMI 34.3
[2018-01-16] MEDS: INSULIN ASPART 100 UNIT/ML 1 ML 10 ML VIAL SQ SCH (21:01)
[2018-01-16 21:02] LABS: Glucose,Whole Blood 122 mg/dL (75-99)
[2018-01-16] MEDS: LOSARTAN 50 MG TAB PO SCH (21:09)
[2018-01-16] MEDS: amLODIPine 10 MG TAB PO SCH (21:09)
[2018-01-16] MEDS: metFORMIN 500 MG TAB PO SCH (21:09)
[2018-01-17 00:53] LABS: Creatine Kinase MB 1.4 ng/mL (0.0-2.4)
[2018-01-17 00:58] LABS: Troponin I 0.057 ng/mL (0.000-0.034)
[2018-01-17 06:32] LABS: Glucose,Whole Blood 117 mg/dL (75-99)
[2018-01-17] MEDS: INSULIN ASPART 100 UNIT/ML 1 ML 10 ML VIAL SQ SCH ×4 (06:43→21:14)
[2018-01-17 08:21] LABS: Creatine Kinase MB 1.8 ng/mL (0.0-2.4)
[2018-01-17 08:28] LABS: Troponin I 0.047 ng/mL (0.000-0.034)
[2018-01-17] MEDS: LOSARTAN 50 MG TAB PO SCH ×2 (08:38→20:35)
[2018-01-17] MEDS: PRAVASTATIN SODIUM 40 MG TAB PO SCH (08:50)
--- NOTE | 2018-01-17 11:18 | P.CRDCN ---
History of Present Illness Consult date: 01/17/18 Chief complaint: Chest pain History of present illness: This is a pleasant 67-year-old gentleman who sees Dr. Aquino in the office as an outpatient with a past medical history significant for coronary artery disease based on heart catheterization was performed in 2014 and revealed intermediate disease involving the left circumflex, diabetes, hypertension, dyslipidemia, presented to the hospital complaining of chest discomfort. He was in his usual state of health until yesterday when he started experiencing chest pressure. He didn't measure his blood pressure at home and that came in to be around 180. He decided to come to the emergency room. No assisted his symptoms of shortness of breath, sweating, dizziness or what it is , or syncope. The patient has been maintaining normal blood pressure since he was admitted to the hospital. Beside that he did not have any more episodes of chest discomfort. The EKG showed sinus rhythm with nonspecific changes in the high lateral leads. The cardiac enzymes came in to be slightly abnormal and it seems to be consistent was acute non-ST elevation myocardial infarction. Past Medical History Past Medical History: CVA/TIA, Diabetes Mellitus, Hypertension Additional Past Medical History / Comment(s): TIA LONG TIME AGO, heart murmur History of Any Multi-Drug Resistant Organisms: None Reported Past Surgical History: Adenoidectomy, Heart Catheterization, Hernia Repair, Tonsillectomy Additional Past Surgical History / Comment(s): RT INGUINAL X4 SEPARATE SX Past Anesthesia/Blood Transfusion Reactions: Motion Sickness, Postoperative Nausea & Vomiting (PONV) Past Psychological History: No Psychological Hx Reported Smoking Status: Former smoker Past Alcohol Use History: None Reported Past Drug Use History: None Reported - Past Family History Father Family Medical History: CVA/TIA, Myocardial Infarction ([place]) Additional Family Medical History / Comment(s): AT AGE 74 [address] [place] Mother Family Medical History: Diabetes Mellitus Additional Family Medical History / Comment(s): AT AGE 55 COMPLICATIONS FROM DIABETES Medications and Allergies Home Medications Medication Instructions Recorded Confirmed Type Aspirin EC [Ecotrin] 325 mg PO QAM 01/16/18 01/16/18 History Losartan [Cozaar] 50 mg PO BID 01/16/18 01/16/18 History Pravastatin Sodium [Pravachol] 40 mg PO QAM 01/16/18 01/16/18 History amLODIPine [Norvasc] 10 mg PO HS 01/16/18 01/16/18 History metFORMIN HCL 1,000 mg PO BID 01/16/18 01/16/18 History Allergies Allergy/AdvReac Type Severity Reaction Status Date / Time orphenadrine citrate Allergy Rash/Hives Verified 01/16/18 16:45 [From Norflex] Physical Exam Vitals: Vital Signs Temp Pulse Pulse Resp BP BP Pulse Ox 01/17/18 08:42 96 01/17/18 08:00 97.1 F L 77 18 137/76 97 01/17/18 04:00 96.9 F L 64 18 120/64 95 01/17/18 00:00 97.0 F L 76 19 142/83 95 01/16/18 20:41 86 16 157/81 97 01/16/18 20:24 97.3 F L 89 19 165/84 98 01/16/18 18:51 98.0 F 97 18 162/81 97 01/16/18 17:09 89 18 143/86 99 01/16/18 16:04 97.9 F 126 H 20 189/88 96 Intake and Output 01/16/18 01/17/18 01/17/18 22:59 06:59 14:59 Intake Total 600 300 Balance 600 300 Intake: Intake, IV Titration 500 Amount Sodium Chloride 0.9% 500 500 ml @ 999 mls/hr IV .Q31M ONE Rx#:[id number] Oral 100 300 Other: Voiding Method Toilet Toilet Weight 108.5 kg 104.3 kg - Constitutional General appearance: no acute distress - Respiratory Respiratory: bilateral: CTA - Cardiovascular Rhythm: regular Heart sounds: normal: S1, S2 Abnormal Heart Sounds: systolic murmur Results 01/16/18 15:35 01/16/18 15:35 Cardiac Enzymes 01/16/18 01/16/18 01/16/18 Range/Units 15:35 15:35 23:45 AST 26 (17-59) U/L CK-MB (CK-2) 1.4 1.4 (0.0-2.4) ng/mL Troponin I <0.012 0.057 H* (0.000-0.034) ng/mL 01/17/18 Range/Units 06:38 AST (17-59) U/L CK-MB (CK-2) 1.8 (0.0-2.4) ng/mL Troponin I 0.047 H* (0.000-0.034) ng/mL Coagulation 01/16/18 Range/Units 18:15 PT 9.7 (9.0-12.0) sec APTT 23.6 (22.0-30.0) sec CBC 01/16/18 Range/Units 15:35 WBC 7.4 (3.8-10.6) k/uL RBC 4.57 (4.30-5.90) m/uL Hgb 13.4 (13.0-17.5) gm/dL Hct 40.3 (39.0-53.0) % Plt Count 214 (150-450) k/uL Comprehensive Metabolic Panel 01/16/18 Range/Units 15:35 Sodium 138 (137-145) mmol/L Potassium 4.5 (3.5-5.1) mmol/L Chloride 100 (98-107) mmol/L Carbon Dioxide 22 (22-30) mmol/L BUN 27 H (9-20) mg/dL Creatinine 0.80 (0.66-1.25) mg/dL Glucose 205 H (74-99) mg/dL Calcium 10.1 (8.4-10.2) mg/dL AST 26 (17-59) U/L ALT 17 L (21-72) U/L Alkaline Phosphatase 77 (38-126) U/L Total Protein 7.6 (6.3-8.2) g/dL Albumin 4.4 (3.5-5.0) g/dL Current Medications Generic Name Dose Route Start Last Admin Trade Name Fadyq PRN Reason Stop Dose Admin Amlodipine Besylate 10 mg 01/16/18 21:00 01/16/18 21:09 Norvasc PO 10 mg HS NIDHI Administration Aspirin 325 mg 01/17/18 12:00 Aspirin PO QAM NIDHI Insulin Aspart 0 unit 01/16/18 21:00 01/17/18 06:43 Novolog SQ Not Given ACHS [facility] Protocol Losartan Potassium 50 mg 01/16/18 21:00 01/17/18 08:38 Cozaar PO 50 mg BID NIDHI Administration Metformin HCl 1,000 mg 01/16/18 21:00 01/16/18 21:09 Glucophage PO 1,000 mg AC-BID NIDHI Administration Naloxone HCl 0.2 mg 01/16/18 20:04 Narcan IV Q2M PRN Opioid Reversal Ondansetron HCl 4 mg 01/16/18 20:04 Zofran IVP Q8HR PRN Nausea And Vomiting Pravastatin Sodium 40 mg 01/17/18 09:00 01/17/18 08:50 Pravachol PO 40 mg QAM NIDHI Administration Intake and Output 01/16/18 01/17/18 01/17/18 22:59 06:59 14:59 Intake Total 600 300 Balance 600 300 Intake: Intake, IV Titration 500 Amount Sodium Chloride 0.9% 500 500 ml @ 999 mls/hr IV .Q31M ONE Rx#:[id number] Oral 100 300 Other: Voiding Method Toilet Toilet Weight 108.5 kg 104.3 kg 01/16/18 15:35 01/16/18 15:35 Assessment and Plan Assessment: assessment #1 acute non-ST elevation CT #2 known CAD based on heart catheterization in 2014 #3 hypertension #4 dyslipidemia #5 diabetes Plan #1 continue the current medical treatment with aspirin, statin. #2 add metoprolol to the current medical treatment #3 obtain an echocardiogram was Doppler #4 keep the patient nothing by mouth for possible heart catheterization tomorrow with Dr. Aquino Thank you for allowing us but spitting his care and we'll continue following up with the patient
[2018-01-17] MEDS: metFORMIN 500 MG TAB PO SCH (11:33)
[2018-01-17] MEDS: ASPIRIN 325 MG TAB PO SCH (11:33)
[2018-01-17 11:54] LABS: Glucose,Whole Blood 115 mg/dL (75-99)
[2018-01-17 12:41] LABS: Creatine Kinase MB 1.4 ng/mL (0.0-2.4); Troponin I 0.03 ng/mL (0.000-0.034)
[2018-01-17] MEDS ORDERED: ACETAMINOPHEN TAB 325 MG TAB PO PRN (14:30)
--- NOTE | 2018-01-17 14:33 | P.HPIM ---
History of Present Illness H&P Date: 01/17/18 Chief Complaint: Chest pain This is a 67-year-old male with past medical history noted below presented to the emergency room with chest pressure. Patient said that his pain started yesterday. He was nonexertional and started all of a sudden. He doesn't describe any radiation. It worsens pain was 7 out of 10 in severity. Patient was evaluated in the emergency room and is currently admitted to the hospital for cardiology evaluation. Review of Systems Review of system: 14 points review of systems were obtained and were negative except to what were mentioned in the HPI. Past Medical History Past Medical History: CVA/TIA, Diabetes Mellitus, Hypertension Additional Past Medical History / Comment(s): TIA LONG TIME AGO, heart murmur History of Any Multi-Drug Resistant Organisms: None Reported Past Surgical History: Adenoidectomy, Heart Catheterization, Hernia Repair, Tonsillectomy Additional Past Surgical History / Comment(s): RT INGUINAL X4 SEPARATE SX Past Anesthesia/Blood Transfusion Reactions: Motion Sickness, Postoperative Nausea & Vomiting (PONV) Past Psychological History: No Psychological Hx Reported Smoking Status: Former smoker Past Alcohol Use History: None Reported Past Drug Use History: None Reported - Past Family History Father Family Medical History: CVA/TIA, Myocardial Infarction ([place]) Additional Family Medical History / Comment(s): AT AGE 74 FROM [place] Mother Family Medical History: Diabetes Mellitus Additional Family Medical History / Comment(s): AT AGE 55 COMPLICATIONS FROM DIABETES Medications and Allergies Home Medications Medication Instructions Recorded Confirmed Type Aspirin EC [Ecotrin] 325 mg PO QAM 01/16/18 01/16/18 History Losartan [Cozaar] 50 mg PO BID 01/16/18 01/16/18 History Pravastatin Sodium [Pravachol] 40 mg PO QAM 01/16/18 01/16/18 History amLODIPine [Norvasc] 10 mg PO HS 01/16/18 01/16/18 History metFORMIN HCL 1,000 mg PO BID 01/16/18 01/16/18 History Allergies Allergy/AdvReac Type Severity Reaction Status Date / Time orphenadrine citrate Allergy Rash/Hives Verified 01/16/18 16:45 [From Norflex] Physical Exam Vitals: Vital Signs Temp Pulse Pulse Resp BP BP Pulse Ox 01/17/18 11:34 97 F L 63 18 154/77 96 01/17/18 08:42 96 01/17/18 08:00 97.1 F L 77 18 137/76 97 01/17/18 04:00 96.9 F L 64 18 120/64 95 01/17/18 00:00 97.0 F L 76 19 142/83 95 01/16/18 20:41 86 16 157/81 97 01/16/18 20:24 97.3 F L 89 19 165/84 98 01/16/18 18:51 98.0 F 97 18 162/81 97 01/16/18 17:09 89 18 143/86 99 01/16/18 16:04 97.9 F 126 H 20 189/88 96 Intake and Output 01/16/18 01/17/18 01/17/18 22:59 06:59 14:59 Intake Total 600 300 480 Output Total 1 Balance 600 300 479 Intake: Intake, IV Titration 500 Amount Sodium Chloride 0.9% 500 500 ml @ 999 mls/hr IV .Q31M ONE Rx#:[id number] Oral 100 300 480 Output: Urine 1 Other: Voiding Method Toilet Toilet Weight 108.5 kg 104.3 kg General: The patient is awake and alert, in no distress Eye: there is normal conjunctiva bilaterally. Neck: The neck is supple, there is no JVD. Cardiovascular: Normal S1-S2, no S3-S4, no murmurs. Respiratory: Lungs clear to auscultation bilaterally Gastrointestinal: Abdomen is soft, nontender Musculoskeletal: There is no pedal edema. Neurological:. Speech is normal. Skin: Skin is warm and dry Results CBC & Chem 7: 01/16/18 15:35 01/16/18 15:35 Labs: Abnormal Lab Results - Last 24 Hours (Table) 01/16/18 01/16/18 01/16/18 Range/Units 15:35 21:01 23:45 BUN 27 H (9-20) mg/dL Glucose 205 H (74-99) mg/dL POC Glucose (mg/dL) 122 H (75-99) mg/dL ALT 17 L (21-72) U/L Troponin I 0.057 H* (0.000-0.034) ng/mL 01/17/18 01/17/18 01/17/18 Range/Units 06:31 06:38 11:46 BUN (9-20) mg/dL Glucose (74-99) mg/dL POC Glucose (mg/dL) 117 H 115 H (75-99) mg/dL ALT (21-72) U/L Troponin I 0.047 H* (0.000-0.034) ng/mL Thrombosis Risk Factor Assmnt - Choose All That Apply Any of the Below Risk Factors Present?: Yes Each Factor Represents 1 point: Obesity (BMI >25) Other Risk Factors: Yes Each Risk Factor Represents 2 Points: Age 61-74 years Other congenital or acquired thrombophilia - If yes, enter type in comment: No Thrombosis Risk Factor Assessment Total Risk Factor Score: 3 Thrombosis Risk Factor Assessment Level: Moderate Risk Assessment and Plan Assessment: 1. Non-ST elevation IN with chest pain and mild troponin elevation on presentation. 12 leads EKG showed no acute ischemic changes. Patient was seen and evaluated by cardiology. Plan for possible left heart catheterization in the morning. 2. Type 2 diabetes on metformin at home. We will continue sliding scale insulin. Awaiting A1c. 3. Essential hypertension: Blood pressure well-controlled 4. Dyslipidemia Continue telemetry monitoring. Medical management for now. She has cardiology recommendations. Echocardiogram in the morning.
[2018-01-17 17:09] LABS: Glucose,Whole Blood 103 mg/dL (75-99)
[2018-01-17 19:42] LABS: Hemoglobin A1C 6.1 % (4.0-6.0)
[2018-01-17] MEDS: amLODIPine 10 MG TAB PO SCH (20:35)
[2018-01-17] MEDS: HEPARIN SODIUM,PORCINE 5,000 UNIT/ML 1 ML VIAL SQ SCH (20:35)
[2018-01-17] MEDS: METOPROLOL TARTRATE 12.5 MG TAB PO SCH (20:35)
[2018-01-17 21:12] LABS: Glucose,Whole Blood 134 mg/dL (75-99)
[2018-01-18 05:53] LABS: Basophils % (A) 1 %; Eosinophils # (A) 0.2 k/uL (0-0.7); Eosinophils % (A) 3 %; HCT 39.4 % (39.0-53.0); HGB 13.4 gm/dL (13.0-17.5); Lymphocytes # (A) 2.1 k/uL (1.0-4.8); Lymphocytes % (A) 32 %; MCH 29.9 pg (25.0-35.0); MCV 87.9 fL (80.0-100.0); Mean Platelet Volume 6.9; Monocytes # (A) 0.3 k/uL (0-1.0); Monocytes % (A) 5 %; Neutrophils # (A) 3.7 k/uL (1.3-7.7); Neutrophils % (A) 57 %; Platelet Count 242 k/uL (150-450); RBC 4.48 m/uL (4.30-5.90); RDW 13.5 % (11.5-15.5); WBC 6.5 k/uL (3.8-10.6)
[2018-01-18 06:02] LABS: Anion Gap 12 mmol/L; Blood Urea Nitrogen 20 mg/dL (9-20); Calcium 10.1 mg/dL (8.4-10.2); Carbon Dioxide 25 mmol/L (22-30); Chloride 103 mmol/L (98-107); Glucose 116 mg/dL (74-99); Potassium 4.8 mmol/L (3.5-5.1); Sodium 140 mmol/L (137-145)
[2018-01-18 06:38] LABS: Glucose,Whole Blood 110 mg/dL (75-99)
[2018-01-18] MEDS: INSULIN ASPART 100 UNIT/ML 1 ML 10 ML VIAL SQ SCH ×4 (06:39→20:41)
[2018-01-18] MEDS: ASPIRIN 325 MG TAB PO SCH (08:18)
[2018-01-18] MEDS: HEPARIN SODIUM,PORCINE 5,000 UNIT/ML 1 ML VIAL SQ SCH ×2 (08:18→20:41)
[2018-01-18] MEDS: PRAVASTATIN SODIUM 40 MG TAB PO SCH (08:18)
[2018-01-18] MEDS: LOSARTAN 50 MG TAB PO SCH ×2 (08:18→20:41)
[2018-01-18] MEDS: METOPROLOL TARTRATE 12.5 MG TAB PO SCH ×2 (08:18→20:41)
[2018-01-18] MEDS ORDERED: ALPRAZolam 0.25 MG TAB PO PRN (10:15)
[2018-01-18] MEDS ORDERED: ASPIRIN 325 MG TAB PO STA (10:15)
[2018-01-18] MEDS ORDERED: ALPRAZolam 0.5 MG TAB PO PRN (10:15)
[2018-01-18] MEDS ORDERED: NITROGLYCERIN SL TABS 0.4 MG TAB SUBLINGUAL PRN (10:15)
[2018-01-18] MEDS ORDERED: SODIUM CHLORIDE 0.9% 1,000 ML in EMPTY BAG 1 BAG IV ONE (10:15)
[2018-01-18] MEDS ORDERED: ATORVASTATIN 80 MG TAB PO STA (10:15)
--- NOTE | 2018-01-18 10:56 | ECHOF ---
Referral Reason:nstemi MEASUREMENTS -------- HEIGHT: 152.4 cm WEIGHT: 103.4 kg BP: 107/56 IVSd: 1.5 cm (0.6 - 1.1) LVIDd: 5.2 cm (3.9 - 5.3) LVPWd: 1.4 cm (0.6 - 1.1) IVSs: 1.7 cm LVIDs: 3.8 cm LVPWs: 1.8 cm Ao Diam: 3.5 cm (2.0 - 3.7) AV Cusp: 1.9 cm (1.5 - 2.6) LA Diam: 4.0 cm (2.7 - 3.8) MV EXCURSION: 25.553 mm (> 18.000) MV EF SLOPE: 33 mm/s (70 - 150) EPSS: 0.4 cm MV E Nav: 0.34 m/s MV DecT: 351 ms MV A Nav: 0.76 m/s MV E/A Ratio: 0.44 AV maxP.49 mmHg AV meanP.59 mmHg AR PHT: 612 ms RAP: 5.00 mmHg RVSP: 31.19 mmHg FINDINGS -------- Sinus rhythm. This was a techncally difficult study with suboptimal views, , Lumason utilized for enhancement of im ages. The left ventricular size is normal. There is moderate concentric left ventricular hypertrophy. O verall left ventricular systolic function is low-normal with, an EF between 50 - 55 %. The right ventricle is normal in size. The left atrial size is normal. The right atrial size is normal. 5.0mg OF Lumason UTLIZED: 2 OR MORE WALL SEGMENTS NOT VISUALIZED. There is moderate aortic valve sclerosis. There is mild aortic regurgitation. There is moderate-t o-severe aortic stenosis present. Peak/mean gradient across the Aortic Valve is 52.49mmHg / 28.59mm Hg. Mild mitral annular calcification present. Mild mitral regurgitation is present. No regurgitation noted There is mild pulmonary hypertension. The right ventricular systolic press ure, as measured by Doppler, is 31.19mmHg. Trace/mild (physiologic) pulmonic regurgitation. The aortic root size is normal. There is no pericardial effusion. CONCLUSIONS -------- 1. This was a techncally difficult study with suboptimal views, , Lumason utilized for enhancement of images. 2. The left ventricular size is normal. 3. There is moderate concentric left ventricular hypertrophy. 4. Overall left ventricular systolic function is low-normal with, an EF between 50 - 55 %. 5. 5.0mg OF Lumason UTLIZED: 2 OR MORE WALL SEGMENTS NOT VISUALIZED. 6. There is moderate aortic valve sclerosis. 7. There is mild aortic regurgitation. 8. There is [id number] aortic stenosis present. 9. Peak/mean gradient across the Aortic Valve is 52.49mmHg / 28.59mmHg. 10. Mild mitral annular calcification present. 11. Mild mitral regurgitation is present. 12. No regurgitation noted 13. There is mild pulmonary hypertension. 14. The right ventricular systolic pressure, as measured by Doppler, is 31.19mmHg. 15. Trace/mild (physiologic) pulmonic regurgitation. 16. The aortic root size is normal. 17. There is no pericardial effusion. MEDICAL FILE CLERK: Chelle Garcia RDCS
[2018-01-18 11:44] LABS: Glucose,Whole Blood 111 mg/dL (75-99)
[2018-01-18] MEDS ORDERED: IV FLUID CONTINUATION 1,000 ML IV ONE (12:11)
--- NOTE | 2018-01-18 12:18 | P.PN ---
Subjective Progress Note Date: 01/18/18 No events overnight. Patient is scheduled for left heart cath today. Objective - Vital Signs Vital signs: Vital Signs Temp 97.9 F 01/18/18 11:35 Pulse 90 01/18/18 11:35 Resp 18 01/18/18 11:35 BP 172/78 01/18/18 11:35 Pulse Ox 93 L 01/18/18 11:35 Intake & Output 01/17/18 01/18/18 01/18/18 18:59 06:59 18:59 Intake Total 840 Output Total 1 Balance 839 Weight 103.7 kg Intake: Oral 840 Output: Urine 1 Other: Voiding Method Toilet Toilet Toilet # Voids 1 - Exam General: The patient is awake and alert, in no distress Eye: there is normal conjunctiva bilaterally. Neck: The neck is supple, there is no JVD. Cardiovascular: Normal S1-S2, no S3-S4, no murmurs. Respiratory: Lungs clear to auscultation bilaterally Gastrointestinal: Abdomen is soft, nontender Musculoskeletal: There is no pedal edema. Neurological:. Speech is normal. Skin: Skin is warm and dry - Labs CBC & Chem 7: 01/18/18 05:22 01/18/18 05:22 Labs: Abnormal Lab Results - Last 24 Hours (Table) 01/16/18 01/17/18 01/17/18 Range/Units 15:35 16:57 20:49 Glucose (74-99) mg/dL POC Glucose (mg/dL) 103 H 134 H (75-99) mg/dL Hemoglobin A1c 6.1 H (4.0-6.0) % 01/18/18 01/18/18 01/18/18 Range/Units 05:22 06:27 11:37 Glucose 116 H (74-99) mg/dL POC Glucose (mg/dL) 110 H 111 H (75-99) mg/dL Hemoglobin A1c (4.0-6.0) % Assessment and Plan Assessment: 1. Non-ST elevation ND with chest pain and mild troponin elevation on presentation. 12 leads EKG showed no acute ischemic changes. Patient was seen and evaluated by cardiology. Plan for left heart catheterization today 2. Type 2 diabetes on metformin at home. We will continue sliding scale insulin. Well-controlled A1c 6.1 3. Essential hypertension: Blood pressure well-controlled 4. Dyslipidemia Continue telemetry monitoring. Medical management for now. She has cardiology recommendations. Echocardiogram pending
[2018-01-18] MEDS ORDERED: fentaNYL (PF) 50 MCG/ML 2 ML AMP IV ONE (12:31)
[2018-01-18] MEDS: MIDAZOLAM 2 MG/2 ML VIAL IV ONE ×2 (12:31→12:38)
[2018-01-18] MEDS ORDERED: LIDOCAINE 2% INJ 20 MG/ML SQ ONE (12:38)
[2018-01-18] MEDS ORDERED: RX INFO: IV CONTRAST WAS GIVEN 1 EACH MISC MISCELLANE PRN (13:03)
[2018-01-18] MEDS ORDERED: HYDROcodone/APAP 5-325MG 1 EACH TAB PO PRN (13:03)
[2018-01-18] MEDS ORDERED: IOHEXOL 350 MG/ML (PER ML) 100ML BTL INJ ONE (13:10)
--- NOTE | 2018-01-18 13:22 | CC ---
CARDIAC CATHETERIZATION REPORT Mr. Kang is a 67-year-old gentleman who was admitted with symptoms of chest pain. There were some mild EKG changes and abnormal troponin suggestive of non-Q-wave myocardial infarction. In view of that, the patient was recommended to have a cardiac catheterization for definite diagnosis. PROCEDURE: The right groin was prepped and draped in the usual manner and the skin was infiltrated with 2% Xylocaine. The right femoral artery was entered using Seldinger technique and a #6 Haitian sheath was placed in. Selective coronary angiography was then performed in multiple projections. The left ventricular pressures were not obtained. The patient tolerated the procedure well. Sheath was removed and good hemostasis was achieved with use of manual compression. SELECTIVE CORONARY ANGIOGRAPHY: Left main coronary artery is normal and patent. LAD is a good caliber blood vessel and gives rise to good size diagonal branch. The mid LAD has mild plaque noted. Circumference coronary artery is a good caliber vessel and after the origin of the obtuse marginal branch, it has got a 30% to 40% stenosis that is not changed from before. Right coronary artery is normal. FINAL IMPRESSION: This study reveals 30% to 40% stenosis in the mid circumflex coronary artery after the origin of the obtuse marginal branch, it is unchanged from before. Left anterior descending artery has mild plaque noted. Right coronary artery is normal. RECOMMENDATIONS: Medical treatment. MMODL / IJN: [id number] /
[2018-01-18] MEDS ORDERED: CLOPIDOGREL 75 MG TAB PO STA (13:52)
[2018-01-18 15:55] VITALS: RESP 16
[2018-01-18 16:58] LABS: Glucose,Whole Blood 153 mg/dL (75-99)
[2018-01-18] MEDS ORDERED: MORPHINE SULF 5MG/10ML VL IVP STA (17:03)
[2018-01-18 17:38] LABS: Glucose,Whole Blood 157 mg/dL (75-99)
[2018-01-18] MEDS: amLODIPine 10 MG TAB PO SCH (20:41)
[2018-01-18 20:42] LABS: Glucose,Whole Blood 130 mg/dL (75-99)
[2018-01-19 06:13] LABS: Glucose,Whole Blood 122 mg/dL (75-99)
[2018-01-19] MEDS: INSULIN ASPART 100 UNIT/ML 1 ML 10 ML VIAL SQ SCH ×2 (06:30→12:15)
[2018-01-19 06:34] LABS: Basophils % (A) 1 %; Eosinophils # (A) 0.1 k/uL (0-0.7); Eosinophils % (A) 1 %; HGB 12.8 gm/dL (13.0-17.5); Lymphocytes # (A) 1.4 k/uL (1.0-4.8); Lymphocytes % (A) 19 %; MCHC 32.8 g/dL (31.0-37.0); MCV 88.4 fL (80.0-100.0); Mean Platelet Volume 6.8; Monocytes # (A) 0.5 k/uL (0-1.0); Monocytes % (A) 6 %; Neutrophils # (A) 5.4 k/uL (1.3-7.7); Neutrophils % (A) 72 %; Platelet Count 253 k/uL (150-450); RBC 4.41 m/uL (4.30-5.90); RDW 13.4 % (11.5-15.5); WBC 7.5 k/uL (3.8-10.6)
[2018-01-19 06:42] LABS: Calcium 9.9 mg/dL (8.4-10.2); Potassium 4.8 mmol/L (3.5-5.1)
[2018-01-19] MEDS ORDERED: CLOPIDOGREL 75 MG TAB PO SCH (09:00)
[2018-01-19] MEDS: LOSARTAN 50 MG TAB PO SCH (09:16)
[2018-01-19] MEDS: HEPARIN SODIUM,PORCINE 5,000 UNIT/ML 1 ML VIAL SQ SCH (09:16)
[2018-01-19] MEDS: ASPIRIN 325 MG TAB PO SCH (09:16)
[2018-01-19] MEDS: PRAVASTATIN SODIUM 40 MG TAB PO SCH (09:16)
[2018-01-19] MEDS: METOPROLOL TARTRATE 12.5 MG TAB PO SCH (09:16)
[2018-01-19 10:26] VITALS: TEMP 96.3
[2018-01-19 11:58] LABS: Glucose,Whole Blood 109 mg/dL (75-99)
[2018-01-19 12:18] VITALS: BP 138/73; PULSE 57
--- NOTE | 2018-01-19 12:34 | P.PN ---
Subjective Progress Note Date: 01/19/18 This is a pleasant 67-year-old gentleman who follows regularly with in the office. He presented to the hospital with symptoms of chest discomfort, was seen in consultation by Dr. Arevalo and recommended to undergo cardiac catheterization by Dr. VC Aquino. This was performed yesterday and revealed a 30-40% stenosis of the mid circumflex coronary artery after the origin of the obtuse marginal branch, unchanged from prior. Left anterior descending artery has mild plaque noted, right coronary artery is normal. Maximal medical therapy was advised. Patient was seen and examined this morning, denies any chest pain or difficulty in breathing. He has been up ambulating without any difficulty. Objective - Vital Signs Vital signs: Vital Signs Temp 96.3 F L 01/19/18 09:15 Pulse 57 L 01/19/18 12:15 Resp 16 01/19/18 12:15 BP 138/73 01/19/18 12:15 Pulse Ox 96 01/19/18 12:15 Intake & Output 01/18/18 01/19/18 01/19/18 18:59 06:59 18:59 Intake Total 272 Output Total 350 1 Balance 272 -350 -1 Weight 103.1 kg Intake: IV 50 Oral 222 Output: Urine 350 1 Other: Voiding Method Toilet Urinal Urinal # Voids 2 - Exam PHYSICAL EXAMINATION: HEENT: Head is atraumatic, normocephalic. Pupils equal, round. Neck is supple. There is no elevated jugular venous pressure. HEART EXAMINATION: Heart S1, S2 normal. No murmur or gallop heard. CHEST EXAMINATION: Lungs are clear to auscultation and precussion. No chest wall tenderness is noted on palpation or with deep breathing. ABDOMEN: Soft, nontender. Bowel sounds are heard. No organomegaly noted. Right groin soft, no evidence of any hematoma. EXTREMITIES: 2+ peripheral pulses with no evidence of peripheral edema and no calf tenderness noted. NEUROLOGIC patient is awake, alert and oriented -3. . - Labs CBC & Chem 7: 01/19/18 05:47 01/19/18 05:47 Labs: Abnormal Lab Results - Last 24 Hours (Table) 01/18/18 01/18/18 01/18/18 Range/Units 16:32 17:03 20:40 Hgb (13.0-17.5) gm/dL BUN (9-20) mg/dL Glucose (74-99) mg/dL POC Glucose (mg/dL) 153 H 157 H 130 H (75-99) mg/dL 01/19/18 01/19/18 01/19/18 Range/Units 05:47 05:47 06:12 Hgb 12.8 L (13.0-17.5) gm/dL BUN 28 H (9-20) mg/dL Glucose 118 H (74-99) mg/dL POC Glucose (mg/dL) 122 H (75-99) mg/dL 01/19/18 Range/Units 11:55 Hgb (13.0-17.5) gm/dL BUN (9-20) mg/dL Glucose (74-99) mg/dL POC Glucose (mg/dL) 109 H (75-99) mg/dL Assessment and Plan Plan: Assessment and plan #1 non-ST elevation myocardial infarction, status post cardiac catheterization, medical therapy advised. #2 known coronary artery disease #3 hypertension #4 hyperlipidemia #5 diabetes Plan From cardiology's perspective, patient may be able to be discharged home today. Follow-up appointment will be made with Dr. VC Aquino in the office post discharge. He will be discharged home on Norvasc 10 mg daily, Ecotrin 81 mg daily, Mevacor 40 mg daily, Plavix 75 mg daily, losartan 50 mg daily, metoprolol 12-1/2 mg twice a day nitroglycerin as needed for chest pain. DNP note has been reviewed, I agree with a documented findings and plan of care. Patient was seen and examined.
--- NOTE | 2018-01-19 13:01 | P.DS ---
Providers Date of admission: 01/18/18 14:33 Expected date of discharge: 01/19/18 Attending physician: Brett Esparza Consults: 01/16/18 20:05 Consult Physician Routine Consulting Provider: Fracisco Londono Consult Reason/Comments: CP Do you want consulting provider notified?: Yes Primary care physician: Carmela [facility] Course: 1. Non-ST elevation [place] with chest pain and mild troponin elevation on presentation. 12 leads EKG showed no acute ischemic changes. Patient was seen and evaluated by cardiology. He underwent left heart catheterization showing obstructive coronary artery disease with 30-40% stenosis involving the mid circumflex. Recommendation for maximal medical management. Echocardiogram showed preserved EF of 55% with no significant wall motion abnormalities or valvular disease. 2. Type 2 diabetes on metformin at home. We will continue sliding scale insulin. Well-controlled A1c 6.1 3. Essential hypertension: Blood pressure well-controlled 4. Dyslipidemia Patient will be discharged home in a stable condition. Please refer to the medication reconciliation note for discharge medication list. Patient Condition at Discharge: Stable Plan - Discharge Summary Discharge Rx Participant: Yes New Discharge Prescriptions: New Aspirin 81 mg PO DAILY #30 chew Clopidogrel [Plavix] 75 mg PO DAILY #30 tab Metoprolol Tartrate [Lopressor] 12.5 mg PO BID #60 tab Nitroglycerin Sl Tabs [Nitrostat] 0.4 mg SUBLINGUAL Q5M PRN #25 tab PRN Reason: Chest Pain Continue amLODIPine [Norvasc] 10 mg PO HS Pravastatin Sodium [Pravachol] 40 mg PO QAM metFORMIN HCL 1,000 mg PO BID Losartan [Cozaar] 50 mg PO BID Discontinued Aspirin EC [Ecotrin] 325 mg PO QAM Discharge Medication List Losartan [Cozaar] 50 mg PO BID 01/16/18 [History] Pravastatin Sodium [Pravachol] 40 mg PO QAM 01/16/18 [History] amLODIPine [Norvasc] 10 mg PO HS 01/16/18 [History] metFORMIN HCL 1,000 mg PO BID 01/16/18 [History] Aspirin 81 mg PO DAILY #30 chew 01/19/18 [Rx] Clopidogrel [Plavix] 75 mg PO DAILY #30 tab 01/19/18 [Rx] Metoprolol Tartrate [Lopressor] 12.5 mg PO BID #60 tab 01/19/18 [Rx] Nitroglycerin Sl Tabs [Nitrostat] 0.4 mg SUBLINGUAL Q5M PRN #25 tab 01/19/18 [Rx ] Follow up Appointment(s)/Referral(s): Landry Aquino MD [STAFF PHYSICIAN] - 01/22/18 9:45 am Carmela Watts MD [Primary Care Provider] - 3 Days Patient Instructions/Handouts: *Surgery [facility] - After Heart Catheterization - Refrigerating Oiler Instructions, Safe Use of Antiplatelet Medication (DC) Activity/Diet/Wound Care/Special Instructions: cardiology cleared. Discharge Disposition: HOME SELF-CARE
[2018-01-20] MEDS ORDERED: ASPIRIN 81 MG PO SCH (09:00)
== END 2018-01-19 15:13 | disposition home or self-care (01) | DRG 282 ==
LOC: EC 15:55 → 6SEL 20:06 → OBSVTOIN 01-18 14:33
PROVIDERS: ADMIT Internal Medicine; ATTEND Internal Medicine
PROC: 4A023N7 Measurement of Cardiac Sampling and Pressure, Left Heart, Percutaneous Approach (ICD-10-PCS; principal; 2018-01-18 11:59)
PROC: B2111ZZ Fluoroscopy of Multiple Coronary Arteries using Low Osmolar Contrast (ICD-10-PCS; principal; 2018-01-18 11:59)
DX: I21.4 Non-ST elevation (NSTEMI) myocardial infarction (principal); E11.9 Type 2 diabetes mellitus without complications; I11.9 Hypertensive heart disease without heart failure; I25.10 Atherosclerotic heart disease of native coronary artery without angina pectoris; E66.9 Obesity, unspecified; E78.5 Hyperlipidemia, unspecified; Z79.82 Long term (current) use of aspirin; Z82.49 Family history of ischemic heart disease and other diseases of the circulatory system; Z83.3 Family history of diabetes mellitus; Z86.73 Personal history of transient ischemic attack (TIA), and cerebral infarction without residual deficits; Z87.891 Personal history of nicotine dependence; Z79.899 Other long term (current) drug therapy; Z88.8 Allergy status to other drugs, medicaments and biological substances; Z82.3 Family history of stroke; Z79.84 Long term (current) use of oral hypoglycemic drugs; Z68.32 Body mass index [BMI] 32.0-32.9, adult
CPT/HCPCS: 36415; 71046; 80048; 80053; 82550; 82553; 83036; 83735; 83880; 84484; 85025; 85379; 85610; 85730; 93005; 93306; 93458; 94760; 96360; 96361; 99285

== ENCOUNTER → 2018-02-02 | Outpatient (CLI) | payer MEDICARE ==
--- NOTE | 2018-02-02 10:18 | US ---
EXAMINATION TYPE: US gallbladder DATE OF EXAM: 02/02/2018 COMPARISON: CT aorta November 08, 2014 CLINICAL HISTORY: Cholecystitis k81. Right upper quadrant pain. EXAM MEASUREMENTS: Liver Length: 14.3 cm Gallbladder Wall: 0.3 cm CBD: 0.4 cm Right Kidney: 10.9 x 5.9 x 5.8 cm Pancreas: not visualized due to midline bowel gas Liver: limited vis to intercostal window, visualized portions wnl Gallbladder: No stones seen Evidence for sonographic Rodas's sign: No CBD: wnl Right Kidney: small hypoechoic lesion upper pole measures 1.4 x 1.7 x 1.6, unable to prove a cyst. Visualized pancreas is heterogeneous. Portions are obscured by overlying bowel gas. Visualized portio ns of liver heterogeneously hyperechoic consistent with fatty infiltration. No suspicious ductal dila tation is seen. There is partially exophytic 1.7 cm hypoechoic anechoic lesion upper pole right kidne y redemonstrated likely corresponds to area of CT concern. Follow-up is advised. Gallbladder seen wit hout shadowing mobile gallstones. IMPRESSION: 1. No gallstones or ultrasound evidence for acute cholecystitis. 2. Partially exophytic 1.7 cm lesion upper to mid pole level right kidney, solid lesion or neoplasm i s not excluded. Follow-up renal protocol contrast-enhanced CT or MRI is advised. 3. Diffuse fatty infiltration of liver redemonstrated in the visualized portions.
== END | disposition home or self-care (01) ==
LOC: RADUSWWP 09:12
PROVIDERS: ATTEND Internal Medicine Cardiovascular Disease
DX: R10.11 Right upper quadrant pain (principal); K76.0 Fatty (change of) liver, not elsewhere classified
CPT/HCPCS: 76705

== ENCOUNTER → 2018-04-14 | Outpatient (CLI) | payer MEDICARE | END | disposition home or self-care (01) | LOC: LABWHC1 11:31 | PROVIDERS: ATTEND Internal Medicine Cardiovascular Disease | DX: I25.10 Atherosclerotic heart disease of native coronary artery without angina pectoris (principal) | CPT/HCPCS: 36415; 83704 ==

== ENCOUNTER 2018-07-03 19:08 | Observation (INO) | payer MEDICARE ==
--- NOTE | 2018-07-03 19:33 | ED ---
General Adult HPI - General Chief complaint: Chest Pain Stated complaint: Chest pain Time Seen by Provider: 07/03/18 19:32 Source: patient Mode of arrival: ambulatory Limitations: no limitations - History of Present Illness Initial comments: George is a 68-year-old obese male with a history of coronary artery disease who presents the emergency department today for evaluation of lightheadedness, diaphoresis and chest pressure. Patient reports that this evening he was getting ready to have dinner with his daughter when he suddenly felt some nausea and lightheadedness. He lost his appetite and sat there but chose not to eat. He then began to feel more lightheaded and diaphoretic, developed some pressure in his chest and decided to go home. However he was encouraged by his daughter come to the emergency department for evaluation. On evaluation the patient is laying comfortably in the bed, he reports that he is no longer lightheaded, his diaphoresis has resolved, he reports this chest pressure which was intense as now may be a 45 out of 10 in intensity. Patient reports that he follows closely with his chief architect, he was last evaluated in March. He is uncertain what evaluation he had at that time. She denies any recent illness, fevers, chills or change in appetite. He reports a prior to the sudden onset of this he was feeling quite well. - Related Data Home Medications Medication Instructions Recorded Confirmed Losartan [Cozaar] 50 mg PO BID 01/16/18 07/03/18 Pravastatin Sodium [Pravachol] 40 mg PO QAM 01/16/18 07/03/18 amLODIPine [Norvasc] 10 mg PO HS 01/16/18 07/03/18 metFORMIN HCL 1,000 mg PO BID 01/16/18 07/03/18 Previous Rx's Medication Instructions Recorded Aspirin 81 mg PO DAILY #30 chew 01/19/18 Clopidogrel [Plavix] 75 mg PO DAILY #30 tab 01/19/18 Metoprolol Tartrate [Lopressor] 12.5 mg PO BID #60 tab 01/19/18 Nitroglycerin Sl Tabs [Nitrostat] 0.4 mg SUBLINGUAL Q5M PRN #25 tab 01/19/18 Allergies Allergy/AdvReac Type Severity Reaction Status Date / Time orphenadrine citrate Allergy Rash/Hives Verified 07/03/18 19:11 [From Norflex] Review of Systems ROS Statement: Those systems with pertinent positive or pertinent negative responses have been documented in the HPI. ROS Other: All systems not noted in ROS Statement are negative. Past Medical History Past Medical History: CVA/TIA, Diabetes Mellitus, Hypertension Additional Past Medical History / Comment(s): TIA LONG TIME AGO, heart murmur History of Any Multi-Drug Resistant Organisms: None Reported Past Surgical History: Adenoidectomy, Heart Catheterization, Hernia Repair, Tonsillectomy Additional Past Surgical History / Comment(s): RT INGUINAL X4 SEPARATE SX Past Anesthesia/Blood Transfusion Reactions: Motion Sickness, Postoperative Nausea & Vomiting (PONV) Past Psychological History: No Psychological Hx Reported Smoking Status: Former smoker Past Alcohol Use History: None Reported Past Drug Use History: None Reported - Past Family History Father Family Medical History: CVA/TIA, Myocardial Infarction ([place]) Additional Family Medical History / Comment(s): AT AGE 74 FROM [place] Mother Family Medical History: Diabetes Mellitus Additional Family Medical History / Comment(s): AT AGE 55 COMPLICATIONS FROM DIABETES General Exam - General Exam Comments Initial Comments: GENERAL: Patient is well-developed and well-nourished. Patient is nontoxic and well- hydrated and is in mild distress. HENT: Normocephalic, Atraumatic. Neck is soft and supple. No significant lymphadenopathy is noted. Oropharynx is clear. Moist mucous membranes. Neck has full range of motion without eliciting any pain. No carotid bruit EYES: The sclera were anicteric and conjunctiva were pink and moist. Extraocular movements were intact and pupils were equal round and reactive to light. Eyelids were unremarkable. PULMONARY: Unlabored respirations. Good breath sounds bilaterally. No audible rales rhonchi or wheezing was noted. CARDIOVASCULAR: There is a regular rate and rhythm, no gallops or rubs. Systolic murmur ABDOMEN: Obese, Soft and nontender with normal bowel sounds. SKIN: Skin is warm and flushed, to the touch. Skin is clear with no lesions or rashes and otherwise unremarkable. NEUROLOGIC: Patient is alert and oriented x3. Cranial nerves II through XII are grossly intact. Motor and sensory are also intact. Normal speech, volume and content. Symmetrical smile. MUSCULOSKELETAL: Normal extremities with adequate strength and full range of motion. No lower extremity swelling or edema. No calf tenderness. LYMPHATICS: No significant lymphadenopathy is noted PSYCHIATRIC: Normal psychiatric evaluation. Limitations: no limitations Limitations: no limitations Course Vital Signs 07/03/18 07/03/18 07/03/18 19:09 19:14 19:25 Temperature 98.2 F Pulse Rate 119 H 100 Respiratory 18 20 24 Rate Blood Pressure 219/106 203/105 O2 Sat by Pulse 94 L 97 Oximetry 07/03/18 07/03/18 07/03/18 19:31 21:12 21:44 Temperature 98.1 F Pulse Rate 99 81 91 Respiratory 20 20 20 Rate Blood Pressure 201/99 185/98 173/90 O2 Sat by Pulse 97 97 97 Oximetry EKG Findings - EKG Comments: EKG Findings:: EKG obtained at 7:16 PM, rate is 1 and 2, rhythm is sinus tachycardia, there is normal axis, there are normal intervals, AR 106, QRS 92, QTc is 453. EKG has poor baseline with respiratory variation, we'll repeat. The EKG obtained at 9:15 a.m., rate is 85, rhythm is sinus, there is left axis deviation, normal intervals, AR 176, QRS 90, QTC 435, there are no acute ST elevations or depressions no evidence of acute ischemia or infarction. When this is compared to previous EKG there is no significant change in morphology. Medical Decision Making - Medical Decision Making The patient was seen and evaluated, history is obtained from patient as well as daughter bedside 68-year-old obese male with chest pressure, diaphoresis, lightheadedness and nausea - history very concerning for ACS Workup ordered Labs were reviewed, troponin not elevated, otherwise no significant abnormalities Initial EKG was tachycardia with a poor baseline, repeat EKG was sinus rhythm with no acute ST elevations or depressions no evidence of acute ischemia or infarction Patient with chest pressure he rated about a 5 out of 10 in severity as well as significant hypertension with a systolic blood pressure 188. Nitro was ordered as well as the patient's home meds Patient's care was discussed with Dr. Esparza who accepts the admission for chest pain and a high risk patient with a consult to cardiology - Lab Data Result diagrams: 07/03/18 19:22 07/03/18 19:22 Lab Results 07/03/18 07/03/18 07/03/18 Range/Units 19:22 19:22 19:22 WBC 9.1 (3.8-10.6) k/uL RBC 4.47 (4.30-5.90) m/uL Hgb 13.4 (13.0-17.5) gm/dL Hct 40.2 (39.0-53.0) % MCV 89.9 (80.0-100.0) fL MCH 29.9 (25.0-35.0) pg MCHC 33.2 (31.0-37.0) g/dL RDW 13.7 (11.5-15.5) % Plt Count 218 (150-450) k/uL Neutrophils % 52 % Lymphocytes % 35 % Monocytes % 6 % Eosinophils % 3 % Basophils % 1 % Neutrophils # 4.7 (1.3-7.7) k/uL Lymphocytes # 3.2 (1.0-4.8) k/uL Monocytes # 0.6 (0-1.0) k/uL Eosinophils # 0.3 (0-0.7) k/uL Basophils # 0.1 (0-0.2) k/uL PT (9.0-12.0) sec INR (<1.2) APTT (22.0-30.0) sec Sodium 141 (137-145) mmol/L Potassium 4.5 (3.5-5.1) mmol/L Chloride 105 (98-107) mmol/L Carbon Dioxide 26 (22-30) mmol/L Anion Gap 10 mmol/L BUN 32 H (9-20) mg/dL Creatinine 1.27 H (0.66-1.25) mg/dL Est GFR (CKD-EPI)AfAm 67 (>60 ml/min/1.73 sqM) Est GFR (CKD-EPI)NonAf 58 (>60 ml/min/1.73 sqM) Glucose 123 H (74-99) mg/dL Calcium 10.1 (8.4-10.2) mg/dL Magnesium 1.9 (1.6-2.3) mg/dL Total Bilirubin 0.4 (0.2-1.3) mg/dL AST 21 (17-59) U/L ALT 20 L (21-72) U/L Alkaline Phosphatase 76 (38-126) U/L Total Creatine Kinase 139 (55-170) U/L CK-MB (CK-2) 2.0 (0.0-2.4) ng/mL CK-MB (CK-2) Rel Index 1.4 Troponin I 0.015 (0.000-0.034) ng/mL Total Protein 7.4 (6.3-8.2) g/dL Albumin 4.5 (3.5-5.0) g/dL 07/03/18 Range/Units 19:22 WBC (3.8-10.6) k/uL RBC (4.30-5.90) m/uL Hgb (13.0-17.5) gm/dL Hct (39.0-53.0) % MCV (80.0-100.0) fL MCH (25.0-35.0) pg MCHC (31.0-37.0) g/dL RDW (11.5-15.5) % Plt Count (150-450) k/uL Neutrophils % % Lymphocytes % % Monocytes % % Eosinophils % % Basophils % % Neutrophils # (1.3-7.7) k/uL Lymphocytes # (1.0-4.8) k/uL Monocytes # (0-1.0) k/uL Eosinophils # (0-0.7) k/uL Basophils # (0-0.2) k/uL PT 9.7 (9.0-12.0) sec INR 1.0 (<1.2) APTT 23.9 (22.0-30.0) sec Sodium (137-145) mmol/L Potassium (3.5-5.1) mmol/L Chloride (98-107) mmol/L Carbon Dioxide (22-30) mmol/L Anion Gap mmol/L BUN (9-20) mg/dL Creatinine (0.66-1.25) mg/dL Est GFR (CKD-EPI)AfAm (>60 ml/min/1.73 sqM) Est GFR (CKD-EPI)NonAf (>60 ml/min/1.73 sqM) Glucose (74-99) mg/dL Calcium (8.4-10.2) mg/dL Magnesium (1.6-2.3) mg/dL Total Bilirubin (0.2-1.3) mg/dL AST (17-59) U/L ALT (21-72) U/L Alkaline Phosphatase (38-126) U/L Total Creatine Kinase (55-170) U/L CK-MB (CK-2) (0.0-2.4) ng/mL CK-MB (CK-2) Rel Index Troponin I (0.000-0.034) ng/mL Total Protein (6.3-8.2) g/dL Albumin (3.5-5.0) g/dL Disposition Clinical Impression: Chest pain Disposition: ADMITTED IP TO THIS HOSP Condition: Stable Referrals: Carmela Watts MD [Primary Care Provider] - 1-2 days
[2018-07-03] MEDS ORDERED: SODIUM CHLORIDE 0.9% 1,000 ML IV STA (19:57)
[2018-07-03 20:00] LABS: Basophils # (A) 0.1 k/uL (0-0.2); Basophils % (A) 1 %; Eosinophils # (A) 0.3 k/uL (0-0.7); Eosinophils % (A) 3 %; HCT 40.2 % (39.0-53.0); HGB 13.4 gm/dL (13.0-17.5); Lymphocytes # (A) 3.2 k/uL (1.0-4.8); Lymphocytes % (A) 35 %; MCH 29.9 pg (25.0-35.0); MCHC 33.2 g/dL (31.0-37.0); MCV 89.9 fL (80.0-100.0); Mean Platelet Volume 6.8; Monocytes # (A) 0.6 k/uL (0-1.0); Monocytes % (A) 6 %; Neutrophils # (A) 4.7 k/uL (1.3-7.7); Neutrophils % (A) 52 %; Platelet Count 218 k/uL (150-450); RBC 4.47 m/uL (4.30-5.90); RDW 13.7 % (11.5-15.5); WBC 9.1 k/uL (3.8-10.6)
[2018-07-03 20:08] LABS: Partial Thromboplastin Time 23.9 sec (22.0-30.0); Prothrombin Time 9.7 sec (9.0-12.0)
--- NOTE | 2018-07-03 20:19 | XR ---
EXAMINATION TYPE: XR chest 1V DATE OF EXAM: 07/03/2018 COMPARISON: 01/16/2018 HISTORY: Chest pain TECHNIQUE: Single frontal view of the chest is obtained. FINDINGS: There is no heart failure nor confluent pneumonic infiltrate. Costophrenic angles are yasmany r. There are chest leads. IMPRESSION: No active cardiopulmonary disease. Normal heart. Atheromatous aorta. No change.
[2018-07-03 20:20] LABS: Albumin 4.5 g/dL (3.5-5.0); Calcium 10.1 mg/dL (8.4-10.2); Magnesium 1.9 mg/dL (1.6-2.3); Potassium 4.5 mmol/L (3.5-5.1); Total Bilirubin 0.4 mg/dL (0.2-1.3); Total Protein 7.4 g/dL (6.3-8.2)
[2018-07-03 20:31] LABS: Troponin I 0.015 ng/mL (0.000-0.034)
[2018-07-03] MEDS ORDERED: NITROGLYCERIN OINT 1 INCH/GM PACKET TOPICAL STA (21:16)
[2018-07-03] MEDS ORDERED: ASPIRIN 81 MG PO STA (21:16)
[2018-07-03] MEDS ORDERED: NITROGLYCERIN SL TABS 0.4 MG TAB SUBLINGUAL PRN (21:45)
[2018-07-03 22:20] LABS: Glucose,Whole Blood 133 mg/dL (75-99)
[2018-07-03] MEDS: amLODIPine 10 MG TAB PO SCH (22:34)
[2018-07-03] MEDS: METOPROLOL TARTRATE 12.5 MG TAB PO SCH (22:34)
[2018-07-03] MEDS: LOSARTAN 50 MG TAB PO SCH (22:34)
[2018-07-03 22:44] VITALS: BMI 33.9
[2018-07-04 02:14] LABS: Creatine Kinase MB 1.5 ng/mL (0.0-2.4); Troponin I 0.033 ng/mL (0.000-0.034)
[2018-07-04 05:49] LABS: Glucose,Whole Blood 130 mg/dL (75-99)
[2018-07-04 07:51] LABS: Cholesterol 119 mg/dL (<200); HDL Cholesterol 45 mg/dL (40-60); LDL Cholesterol,Calculated 53 mg/dL (0-99); Triglycerides 105 mg/dL (<150)
[2018-07-04 08:14] LABS: Creatine Kinase MB 1.5 ng/mL (0.0-2.4); Troponin I 0.028 ng/mL (0.000-0.034)
[2018-07-04] MEDS: METOPROLOL TARTRATE 12.5 MG TAB PO SCH (08:57)
[2018-07-04] MEDS: ASPIRIN 325 MG TAB PO SCH (08:58)
[2018-07-04] MEDS: CLOPIDOGREL 75 MG TAB PO SCH (08:58)
[2018-07-04] MEDS: LOSARTAN 50 MG TAB PO SCH ×2 (08:58→20:16)
[2018-07-04 09:52] LABS: Anion Gap 6 mmol/L; Blood Urea Nitrogen 21 mg/dL (9-20); Carbon Dioxide 26 mmol/L (22-30); Chloride 108 mmol/L (98-107); Glucose 119 mg/dL (74-99); Potassium 4.1 mmol/L (3.5-5.1); Sodium 140 mmol/L (137-145)
--- NOTE | 2018-07-04 10:13 | P.CRDCN ---
History of Present Illness History of present illness: Mr. Kang is a pleasant 68-year-old male past medical history significant for hypertension, diabetes mellitus and mild nonobstructive coronary artery disease per cardiac catheterization January 2018. There is a 30- 40% stenosis noted in the OM branch that is unchanged from prior cath. Next medical therapy recommended at that time. He follows with Dr. Aquino in the office. He states yesterday while he was going up to his daughter he started having a heavy pressure sensation in the midsternal precordial region. He denies radiation to the arm, back, neck or jaw. He felt shortness of breath and dizzy while he was having any symptoms. Upon arrival to the emergency department blood pressure was 219/106. He states he's been checking his blood pressures all throughout the week and his readings have been greater than 180 systolic as well as greater than 100s diastolic. Current cardiac medications include amlodipine 10 mg at bedtime, Lopressor 12.5 mg twice a day, losartan 50 mg twice a day, Plavix 75 mg daily, aspirin 81 mg daily and pravastatin 40 mg daily. Telemetry tracings been unremarkable. He denies symptoms of orthopnea or PND. All symptoms of chest discomfort, shortness of breath and dizziness has subsided since admission. No specific alleviating factor noted. He states his symptoms went away on her own. EKG initially on admission reveals sinus tachycardia heart rate [address] depression noted in the anterior lateral leads. Repeat EKG subsequently thereafter reveals resolution of the ST depressions. Chest x-ray reveals no acute cardiopulmonary process. Laboratory data reviewed, hemoglobin 13.4, platelets 218, sodium 140, potassium 4.1, creatinine 0.80 down from 1.27 on admission, cardiac enzymes negative 3, LDL 53, HDL 45. Most recent echocardiogram performed in January 2080 reveals preserved left ventricular systolic function with ejection fraction 50-55%, mild aortic valve sclerosis, mild aortic regurgitation, moderate to severe aortic stenosis with mean gradient of 20.59 mmHg across the valve. At the time of my exam: CONSTITUTIONAL: Denies fever. Denies chills. EYES: Denies blurred vision. Denies vision changes. Denies eye pain. EARS, NOSE, MOUTH & THROAT: Denies headache. Denies sore throat. Denies ear pain. CARDIOVASCULAR: Denies chest pain. Denies shortness of breath. Denies orthopnea. Denies PND. Denies palpitations. RESPIRATORY: Denies cough. GASTROINTESTINAL: Denies abdominal pain. Denies diarrhea. Denies constipation. Denies nausea. Denies vomiting. MUSCULOSKELETAL: Denies myalgias. INTEGUMENTARY: Denies pruitis. Denies rash. NEUROLOGIC: Denies numbness. Denies tingling. Denies weakness. PSYCHIATRIC: Denies anxiety. Denies depression. ENDOCRINE: Denies fatigue. Denies weight change. Denies polydipsia. Denies polyurina. GENITOURINARY: Denies burning, hematuria or urgency with micturation. HEMATOLOGIC: Denies history of anemia. Denies bleeding. Blood pressure 142/72 heart rate 66 afebrile maintaining oxygen saturation on nasal cannula GENERAL: This is a 68-year-old male in no apparent distress at the time of my examination. HEENT: Head is atraumatic, normocephalic. Pupils are equal, round. Sclerae anicteric. Conjunctivae are clear. Mucous membranes of the mouth are moist. Neck is supple. There is no jugular venous distention. No carotid bruit is heard. LUNGS: Clear to auscultation no wheezes, rales or rhonchi. No chest wall tenderness is noted on palpation or with deep breathing. HEART: Regular rate and rhythm with systolic ejection murmur at the base, no rubs or gallops. S1 and S2 heard. ABDOMEN: Soft, nontender. Bowel sounds are heard. No organomegaly noted. EXTREMITIES: No evidence of peripheral edema and no calf tenderness noted. VASCULAR: Radial and dorsalis pedis pulses palpated, no evidence of clubbing. NEUROLOGIC: Patient is awake, alert and oriented x3. ASSESSMENT Hypertensive emergency Chest pain, an acute coronary event has been ruled out Dyslipidemia History of mild nonobstructive coronary artery disease per cath January 2018 Diabetes mellitus Obesity PLAN Change metoprolol to carvedilol 6.25 mg twice a day. Kidney function has improved since admission we will start patient on Dyazide 37.5/25 mg daily. First dose now. Repeat echocardiogram in the morning. Repeat EKG in the morning. Further recommendations to follow based upon clinical course. Thank you kindly for this consultation. Nurse Practitioner note has been reviewed, I agree with a documented findings and plan of care. Patient was seen and examined. Past Medical History Past Medical History: CVA/TIA, Diabetes Mellitus, Hypertension Additional Past Medical History / Comment(s): TIA LONG TIME AGO, heart murmur History of Any Multi-Drug Resistant Organisms: None Reported Past Surgical History: Adenoidectomy, Heart Catheterization, Hernia Repair, Tonsillectomy Additional Past Surgical History / Comment(s): RT INGUINAL X4 SEPARATE SX Past Anesthesia/Blood Transfusion Reactions: Motion Sickness, Postoperative Nausea & Vomiting (PONV) Past Psychological History: No Psychological Hx Reported Smoking Status: Former smoker Past Alcohol Use History: None Reported Additional Past Alcohol Use History / Comment(s): STARTED SMOKING AT AGE 21 AND QUIT AT AGE 22 Past Drug Use History: None Reported - Past Family History Father Family Medical History: CVA/TIA, Myocardial Infarction ([place]) Additional Family Medical History / Comment(s): AT AGE 74 FROM [place] Mother Family Medical History: Diabetes Mellitus Additional Family Medical History / Comment(s): AT AGE 55 COMPLICATIONS FROM DIABETES Medications and Allergies Home Medications Medication Instructions Recorded Confirmed Type Losartan [Cozaar] 50 mg PO BID 01/16/18 07/03/18 History Pravastatin Sodium [Pravachol] 40 mg PO QAM 01/16/18 07/03/18 History amLODIPine [Norvasc] 10 mg PO HS 01/16/18 07/03/18 History metFORMIN HCL 1,000 mg PO BID 01/16/18 07/03/18 History Aspirin 81 mg PO DAILY #30 chew 01/19/18 07/03/18 Rx Clopidogrel [Plavix] 75 mg PO DAILY #30 tab 01/19/18 07/03/18 Rx Metoprolol Tartrate [Lopressor] 12.5 mg PO BID #60 tab 01/19/18 07/03/18 Rx Nitroglycerin Sl Tabs [Nitrostat] 0.4 mg SUBLINGUAL Q5M PRN #25 tab 01/19/18 Rx Allergies Allergy/AdvReac Type Severity Reaction Status Date / Time orphenadrine citrate Allergy Rash/Hives Verified 07/03/18 19:11 [From Norflex] Physical Exam Vitals: Vital Signs Temp Pulse Pulse Resp BP BP Pulse Ox 07/04/18 03:10 97.4 F L 66 18 142/72 96 07/04/18 00:00 147/83 07/03/18 22:36 97.9 F 88 18 187/98 96 07/03/18 22:15 97.9 F 88 18 187/98 96 07/03/18 21:44 98.1 F 91 20 173/90 97 07/03/18 21:12 81 20 185/98 97 07/03/18 19:31 99 20 201/99 97 07/03/18 19:25 24 07/03/18 19:14 100 20 203/105 97 07/03/18 19:09 98.2 F 119 H 18 219/106 94 L Intake and Output 07/03/18 07/04/18 07/04/18 22:59 06:59 14:59 Intake Total 0 Output Total 550 Balance -550 0 Intake: Oral 0 Output: Urine 550 Other: # Voids 1 Weight 107.2 kg 107.2 kg Results 07/03/18 19:22 07/04/18 07:31 Cardiac Enzymes 07/03/18 07/03/18 07/04/18 Range/Units 19:22 19:22 01:29 AST 21 (17-59) U/L CK-MB (CK-2) 2.0 1.5 (0.0-2.4) ng/mL Troponin I 0.015 0.033 (0.000-0.034) ng/mL 07/04/18 Range/Units 07:31 AST (17-59) U/L CK-MB (CK-2) 1.5 (0.0-2.4) ng/mL Troponin I 0.028 (0.000-0.034) ng/mL Coagulation 07/03/18 Range/Units 19:22 PT 9.7 (9.0-12.0) sec APTT 23.9 (22.0-30.0) sec Lipids 07/04/18 Range/Units 07:31 Triglycerides 105 (<150) mg/dL Cholesterol 119 (<200) mg/dL HDL Cholesterol 45 (40-60) mg/dL CBC 07/03/18 Range/Units 19:22 WBC 9.1 (3.8-10.6) k/uL RBC 4.47 (4.30-5.90) m/uL Hgb 13.4 (13.0-17.5) gm/dL Hct 40.2 (39.0-53.0) % Plt Count 218 (150-450) k/uL Comprehensive Metabolic Panel 07/03/18 Range/Units 19:22 Sodium 141 (137-145) mmol/L Potassium 4.5 (3.5-5.1) mmol/L Chloride 105 (98-107) mmol/L Carbon Dioxide 26 (22-30) mmol/L BUN 32 H (9-20) mg/dL Creatinine 1.27 H (0.66-1.25) mg/dL Glucose 123 H (74-99) mg/dL Calcium 10.1 (8.4-10.2) mg/dL AST 21 (17-59) U/L ALT 20 L (21-72) U/L Alkaline Phosphatase 76 (38-126) U/L Total Protein 7.4 (6.3-8.2) g/dL Albumin 4.5 (3.5-5.0) g/dL Current Medications Generic Name Dose Route Start Last Admin Trade Name Freq PRN Reason Stop Dose Admin Amlodipine Besylate 10 mg 07/03/18 22:30 07/03/18 22:34 Norvasc PO 10 mg HS NIDHI Administration Aspirin 325 mg 07/04/18 09:00 Aspirin PO DAILY [facility] Clopidogrel Bisulfate 75 mg 07/04/18 09:00 Plavix PO DAILY [facility] Sodium Chloride 1,000 mls @ 75 mls/hr 07/03/18 19:57 07/03/18 19:57 Saline 0.9% IV 07/04/18 09:16 75 mls/hr .[id number] STA Administration Losartan Potassium 50 mg 07/03/18 22:30 07/03/18 22:34 Cozaar PO 50 mg BID NIDHI Administration Metoprolol Tartrate 12.5 mg 07/03/18 22:30 07/03/18 22:34 Lopressor PO 12.5 mg BID [facility] Administration Nitroglycerin 0.4 mg 07/03/18 21:45 Nitrostat SUBLINGUAL Q5M PRN Chest Pain Intake and Output 07/03/18 07/04/18 07/04/18 22:59 06:59 14:59 Intake Total 0 Output Total 550 Balance -550 0 Intake: Oral 0 Output: Urine 550 Other: # Voids 1 Weight 107.2 kg 107.2 kg 07/03/18 19:22 07/03/18 19:22
[2018-07-04] MEDS: TRIAMTERENE-HCTZ 37.5-25MG 1 EACH CAP PO SCH (11:28)
[2018-07-04] MEDS ORDERED: NITROGLYCERIN SL TABS 0.4 MG TAB SUBLINGUAL PRN (11:39)
[2018-07-04 11:58] LABS: Glucose,Whole Blood 199 mg/dL (75-99)
--- NOTE | 2018-07-04 12:15 | P.HPIM ---
History of Present Illness H&P Date: 07/04/18 Chief Complaint: Chest pain George Kang is a 68-year-old male patient of Dr. ramos who presented to [facility] emergency room with a chief complaint of chest pain , patient stated that he was at [facility] when he started having pressure in his chest, this was accompanied with nausea and diaphoresis and lightheadedness, he came to emergency room, he was found to have hypertensive emergency with blood pressure of 219/106 he was treated in the emergency room his blood pressure was Jayne eyes done he was admitted to telemetry floor for further evaluation and treatment. Chest pain resolved while patient was in the emergency room EKG revealed evidence of sinus tachycardia was left ventricular hypertrophy and repolarization abnormality, repeat chest x-ray revealed sinus rhythm with left ventricular hypertrophy. Troponin level in the emergency room was 0.015, there was evidence of elevated BUN at 32 and elevated creatinine at 1.27. Patient had a cardiac catheterization in January 2018 which revealed mild coronary artery disease without any need for intervention at that time . Patient also has known history of hypertension, hyperlipidemia, and non-insulin- dependent diabetes mellitus . Past Medical History Past Medical History: CVA/TIA, Diabetes Mellitus, Hypertension Additional Past Medical History / Comment(s): TIA LONG TIME AGO, heart murmur History of Any Multi-Drug Resistant Organisms: None Reported Past Surgical History: Adenoidectomy, Heart Catheterization, Hernia Repair, Tonsillectomy Additional Past Surgical History / Comment(s): RT INGUINAL X4 SEPARATE SX Past Anesthesia/Blood Transfusion Reactions: Motion Sickness, Postoperative Nausea & Vomiting (PONV) Past Psychological History: No Psychological Hx Reported Smoking Status: Former smoker Past Alcohol Use History: None Reported Additional Past Alcohol Use History / Comment(s): STARTED SMOKING AT AGE 21 AND QUIT AT AGE 22 Past Drug Use History: None Reported - Past Family History Father Family Medical History: CVA/TIA, Myocardial Infarction ([place]) Additional Family Medical History / Comment(s): AT AGE 74 FROM [place] Mother Family Medical History: Diabetes Mellitus Additional Family Medical History / Comment(s): AT AGE 55 COMPLICATIONS FROM DIABETES Medications and Allergies Home Medications Medication Instructions Recorded Confirmed Type Losartan [Cozaar] 50 mg PO BID 01/16/18 07/03/18 History Pravastatin Sodium [Pravachol] 40 mg PO QAM 01/16/18 07/03/18 History amLODIPine [Norvasc] 10 mg PO HS 01/16/18 07/03/18 History metFORMIN HCL 1,000 mg PO BID 01/16/18 07/03/18 History Aspirin 81 mg PO DAILY #30 chew 01/19/18 07/03/18 Rx Clopidogrel [Plavix] 75 mg PO DAILY #30 tab 01/19/18 07/03/18 Rx Metoprolol Tartrate [Lopressor] 12.5 mg PO BID #60 tab 01/19/18 07/03/18 Rx Nitroglycerin Sl Tabs [Nitrostat] 0.4 mg SUBLINGUAL Q5M PRN #25 tab 01/19/18 Rx Allergies Allergy/AdvReac Type Severity Reaction Status Date / Time orphenadrine citrate Allergy Rash/Hives Verified 07/03/18 19:11 [From Norflex] Physical Exam Vitals: Vital Signs Temp Pulse Pulse Resp BP BP Pulse Ox 07/04/18 11:54 96.4 F L 80 14 147/76 96 07/04/18 08:00 96.4 F L 78 14 143/77 97 07/04/18 03:10 97.4 F L 66 18 142/72 96 07/04/18 00:00 147/83 07/03/18 22:36 97.9 F 88 18 187/98 96 07/03/18 22:15 97.9 F 88 18 187/98 96 07/03/18 21:44 98.1 F 91 20 173/90 97 07/03/18 21:12 81 20 185/98 97 07/03/18 19:31 99 20 201/99 97 07/03/18 19:25 24 07/03/18 19:14 100 20 203/105 97 07/03/18 19:09 98.2 F 119 H 18 219/106 94 L Intake and Output 07/03/18 07/04/18 07/04/18 22:59 06:59 14:59 Intake Total 0 Output Total 550 400 Balance -550 -400 Intake: Oral 0 Output: Urine 550 400 Other: # Voids 1 Weight 107.2 kg 107.2 kg In general patient is alert and oriented 3 in no apparent distress HEENT head normocephalic and atraumatic Neck is supple no JVD no goiter no lymphadenopathy no carotid bruit Chest exam reveals a few scattered crackles no wheezing Cardiac exam reveals regular heart sounds S1 and S2 no gallops no murmurs no rub Abdomen is soft nontender no organomegaly was normal bowel sounds Extremity exam reveals no edema no cyanosis or clubbing Neurological examination reveals no gross focal deficit Results CBC & Chem 7: 07/03/18 19:22 07/04/18 07:31 Labs: Abnormal Lab Results - Last 24 Hours (Table) 07/03/18 07/03/18 07/04/18 Range/Units 19:22 22:19 05:47 Chloride (98-107) mmol/L BUN 32 H (9-20) mg/dL Creatinine 1.27 H (0.66-1.25) mg/dL Glucose 123 H (74-99) mg/dL POC Glucose (mg/dL) 133 H 130 H (75-99) mg/dL ALT 20 L (21-72) U/L 07/04/18 07/04/18 Range/Units 07:31 11:31 Chloride 108 H (98-107) mmol/L BUN 21 H (9-20) mg/dL Creatinine (0.66-1.25) mg/dL Glucose 119 H (74-99) mg/dL POC Glucose (mg/dL) 199 H (75-99) mg/dL ALT (21-72) U/L Thrombosis Risk Factor Assmnt - Choose All That Apply Each Factor Represents 1 point: Obesity (BMI >25) Each Risk Factor Represents 2 Points: Age 61-74 years Thrombosis Risk Factor Assessment Total Risk Factor Score: 3 Thrombosis Risk Factor Assessment Level: Moderate Risk Assessment and Plan Plan: #1 episode of chest pain #2 hypertensive emergency on presentation #3 underlying history of hypertension #4 underlying history of hyperlipidemia #5 underlying history of [id number] diabetes mellitus #6 underlying history of nonobstructive coronary artery disease, last cardiac catheterization in January 2018 At this time patient is symptom free his blood pressure is better controlled Medications were reviewed and reordered Plan is for echocardiogram in a.m., cardiology consult reviewed Possible discharge tomorrow if stable
[2018-07-04] MEDS: metFORMIN 500 MG TAB PO SCH ×2 (14:55→17:00)
[2018-07-04 16:52] LABS: Glucose,Whole Blood 112 mg/dL (75-99)
[2018-07-04] MEDS: CARVEDILOL 6.25 MG TAB PO SCH (17:00)
[2018-07-04] MEDS ORDERED: ACETAMINOPHEN TAB 325 MG TAB PO PRN (19:59)
[2018-07-04] MEDS: amLODIPine 10 MG TAB PO SCH (20:16)
[2018-07-04 20:26] VITALS: RESP 16
[2018-07-04 20:52] LABS: Glucose,Whole Blood 114 mg/dL (75-99)
[2018-07-05 05:57] LABS: Glucose,Whole Blood 133 mg/dL (75-99)
[2018-07-05] MEDS: metFORMIN 500 MG TAB PO SCH (06:54)
[2018-07-05] MEDS: CARVEDILOL 6.25 MG TAB PO SCH (06:54)
[2018-07-05 07:07] LABS: Basophils % (A) 0 %; Eosinophils # (A) 0.3 k/uL (0-0.7); Eosinophils % (A) 4 %; HCT 38.8 % (39.0-53.0); HGB 12.4 gm/dL (13.0-17.5); Lymphocytes # (A) 1.6 k/uL (1.0-4.8); Lymphocytes % (A) 25 %; MCH 29.3 pg (25.0-35.0); MCHC 31.9 g/dL (31.0-37.0); MCV 91.6 fL (80.0-100.0); Mean Platelet Volume 6.7; Monocytes # (A) 0.3 k/uL (0-1.0); Monocytes % (A) 5 %; Neutrophils # (A) 4.3 k/uL (1.3-7.7); Neutrophils % (A) 64 %; Platelet Count 192 k/uL (150-450); RBC 4.24 m/uL (4.30-5.90); RDW 13.8 % (11.5-15.5); WBC 6.6 k/uL (3.8-10.6)
[2018-07-05] MEDS ORDERED: PRAVASTATIN SODIUM 40 MG TAB PO SCH (09:00)
[2018-07-05] MEDS: LOSARTAN 50 MG TAB PO SCH (09:10)
[2018-07-05] MEDS: TRIAMTERENE-HCTZ 37.5-25MG 1 EACH CAP PO SCH (09:10)
[2018-07-05] MEDS: ASPIRIN 325 MG TAB PO SCH (09:10)
[2018-07-05] MEDS: CLOPIDOGREL 75 MG TAB PO SCH (09:10)
[2018-07-05 09:15] VITALS: PULSE 70; TEMP 97.2
[2018-07-05 10:03] LABS: ALT 18 U/L (21-72); AST 18 U/L (17-59); Albumin 3.6 g/dL (3.5-5.0); Alkaline Phosphatase 61 U/L (38-126); Anion Gap 7 mmol/L; Blood Urea Nitrogen 20 mg/dL (9-20); Calcium 9.5 mg/dL (8.4-10.2); Carbon Dioxide 26 mmol/L (22-30); Chloride 105 mmol/L (98-107); Glucose 122 mg/dL (74-99); Potassium 4.5 mmol/L (3.5-5.1); Sodium 138 mmol/L (137-145); Total Bilirubin 0.4 mg/dL (0.2-1.3); Total Protein 6.4 g/dL (6.3-8.2)
[2018-07-05 10:27] LABS: Hemoglobin A1C 6.1 % (4.0-6.0)
[2018-07-05 11:23] LABS: Glucose,Whole Blood 112 mg/dL (75-99)
--- NOTE | 2018-07-05 12:20 | P.PN ---
Subjective Progress Note Date: 07/05/18 Mr. Kang is a pleasant 68-year-old male past medical history significant for hypertension, diabetes mellitus and mild nonobstructive coronary artery disease per cardiac catheterization January 2018. There is a 30- 40% stenosis noted in the OM branch that is unchanged from prior cath. Next medical therapy recommended at that time. He follows with Dr. Aquino in the office. He presented to the hospital with symptoms of chest pressure and heaviness, blood pressure on arrival here was 219/106. He was resumed yesterday on his Dyazide. Most recent echocardiogram with Doppler study performed in January reveals preserved left ventricular systolic function with an ejection fraction of 50-55% with mild aortic valve sclerosis, mild AR, moderate to severe aortic stenosis. A repeat echocardiogram with Doppler study has been requested here, this morning he is hemodynamically stable. He's been ambulating in the betts without any difficulty, denies any chest discomfort. He states he did have an episode of nausea and vomiting earlier this morning. Objective - Vital Signs Vital signs: Vital Signs Temp 97.2 F L 07/05/18 08:00 Pulse 70 07/05/18 08:00 Resp 16 07/05/18 11:35 BP 125/67 07/05/18 08:00 Pulse Ox 93 L 07/05/18 08:00 Intake & Output 07/04/18 07/05/18 07/05/18 18:59 06:59 18:59 Intake Total 380 398 Output Total 900 700 Balance -520 -700 398 Weight 105.6 kg Intake: Oral 380 398 Output: Urine 900 700 Other: Voiding Method Toilet Urinal # Voids 2 - Exam Blood pressure 142/72 heart rate 66 afebrile maintaining oxygen saturation on nasal cannula GENERAL: This is a 68-year-old male in no apparent distress at the time of my examination. HEENT: Head is atraumatic, normocephalic. Pupils are equal, round. Sclerae anicteric. Conjunctivae are clear. Mucous membranes of the mouth are moist. Neck is supple. There is no jugular venous distention. No carotid bruit is heard. LUNGS: Clear to auscultation no wheezes, rales or rhonchi. No chest wall tenderness is noted on palpation or with deep breathing. HEART: Regular rate and rhythm with systolic ejection murmur at the base, no rubs or gallops. S1 and S2 heard. ABDOMEN: Soft, nontender. Bowel sounds are heard. No organomegaly noted. EXTREMITIES: No evidence of peripheral edema and no calf tenderness noted. VASCULAR: Radial and dorsalis pedis pulses palpated, no evidence of clubbing. NEUROLOGIC: Patient is awake, alert and oriented x3. - Labs CBC & Chem 7: 07/05/18 06:45 07/05/18 06:45 Labs: Abnormal Lab Results - Last 24 Hours (Table) 07/04/18 07/04/18 07/04/18 Range/Units 07:31 16:40 20:50 RBC (4.30-5.90) m/uL Hgb (13.0-17.5) gm/dL Hct (39.0-53.0) % Glucose (74-99) mg/dL POC Glucose (mg/dL) 112 H 114 H (75-99) mg/dL Hemoglobin A1c 6.1 H (4.0-6.0) % ALT (21-72) U/L 07/05/18 07/05/18 07/05/18 Range/Units 05:55 06:45 06:45 RBC 4.24 L (4.30-5.90) m/uL Hgb 12.4 L (13.0-17.5) gm/dL Hct 38.8 L (39.0-53.0) % Glucose 122 H (74-99) mg/dL POC Glucose (mg/dL) 133 H (75-99) mg/dL Hemoglobin A1c (4.0-6.0) % ALT 18 L (21-72) U/L 07/05/18 Range/Units 11:20 RBC (4.30-5.90) m/uL Hgb (13.0-17.5) gm/dL Hct (39.0-53.0) % Glucose (74-99) mg/dL POC Glucose (mg/dL) 112 H (75-99) mg/dL Hemoglobin A1c (4.0-6.0) % ALT (21-72) U/L Assessment and Plan Plan: Assessment and plan #1 chest discomfort, acute coronary syndrome has been ruled out, patient did have a cardiac catheterization earlier this year which did not reveal any significant obstructive coronary artery disease #2 hypertensive urgency, patient is back on his Dyazide, blood pressure this morning is stable. #3 hyperlipidemia #4 diabetes #5 obesity Plan We will review the echocardiogram with Doppler study, if there is no significant change from prior, he may be able to be discharged home to follow- up with Dr. VC Aquino in the office post discharge. DNP note has been reviewed, I agree with a documented findings and plan of care. Patient was seen and examined.
[2018-07-05 12:50] VITALS: BP 155/80
--- NOTE | 2018-07-05 13:08 | ECHOF ---
Referral Reason: MEASUREMENTS -------- HEIGHT: 177.8 cm WEIGHT: 105.2 kg BP: 139/8 RVIDd: 3.3 cm (< 3.3) IVSd: 1.5 cm (0.6 - 1.1) LVIDd: 4.1 cm (3.9 - 5.3) LVPWd: 1.6 cm (0.6 - 1.1) IVSs: 2.4 cm LVIDs: 2.9 cm LVPWs: 2.5 cm LA Diam: 3.6 cm (2.7 - 3.8) LAESV Index (A-L): 31.28 ml/m Ao Diam: 3.9 cm (2.0 - 3.7) AV Cusp: 2.1 cm (1.5 - 2.6) MV EXCURSION: 20.130 mm (> 18.000) MV EF SLOPE: 14 mm/s (70 - 150) EPSS: 0.2 cm MV E Nav: 0.63 m/s MV DecT: 397 ms MV A Anv: 1.00 m/s MV E/A Ratio: 0.63 AV maxP.21 mmHg AV meanP.73 mmHg AR PHT: 877 ms RAP: 5.00 mmHg RVSP: 15.95 mmHg FINDINGS -------- Sinus rhythm. This was a technically adequate study. The left ventricular size is normal. There is moderate concentric left ventricular hypertrophy. O verall left ventricular systolic function is normal with, an EF between 55 - 60 %. The right ventricle is mildly enlarged. LA is midly dilated 29-33ml/m2. The right atrium is normal in size. There is moderate to severe aortic valve sclerosis. There is mild aortic regurgitation. There is moderate aortic stenosis present. Peak/mean gradient across the Aortic Valve is 57.21mmHg / 28.73mm Hg. Mild mitral annular calcification present. Mild tricuspid regurgitation present. Right ventricular systolic pressure is normal at < 35 mmHg. Trace/mild (physiologic) pulmonic regurgitation. The aortic root is dilated measuring 3.9cm. IVC Not well visulized. There is no pericardial effusion. CONCLUSIONS -------- 1. Sinus rhythm. 2. This was a technically adequate study. 3. The left ventricular size is normal. 4. There is moderate concentric left ventricular hypertrophy. 5. Overall left ventricular systolic function is normal with, an EF between 55 - 60 %. 6. The right ventricle is mildly enlarged. 7. LA is midly dilated 29-33ml/m2. 8. The right atrium is normal in size. 9. There is moderate to severe aortic valve sclerosis. 10. There is mild aortic regurgitation. 11. There is moderate aortic stenosis present. 12. Peak/mean gradient across the Aortic Valve is 57.21mmHg / 28.73mmHg. 13. Mild mitral annular calcification present. 14. Mild tricuspid regurgitation present. 15. Right ventricular systolic pressure is normal at < 35 mmHg. 16. Trace/mild (physiologic) pulmonic regurgitation. 17. The aortic root is dilated measuring 3.9cm. 18. IVC Not well visulized. 19. There is no pericardial effusion. ETHYL BLENDER: Marie Churchill RDCS
--- NOTE | 2018-07-05 14:16 | P.DS ---
Providers Date of admission: 07/03/18 21:49 Expected date of discharge: 07/05/18 Attending physician: Brett Esparza Consults: 07/03/18 21:45 Consult Physician Urgent Consulting Provider: [facility] Consult Reason/Comments: chest pain, established patient Do you want consulting provider notified?: Yes, Notify in am Primary care physician: Carmela Watts [facility] Course: Discharge diagnosis #1 episode of chest pain. Troponin level 0.015 and 0.033. Cardiology consulted. 2-D echo completed showing an EF 55-60% with moderate to severe aortic valve sclerosis. Lopressor DC'd. Coreg and Dyazide added per cardiology. Patient has been cleared for discharge from cardiology standpoint. Patient to follow-up outpatient with cardiology. #2 hypertensive emergency on presentation #3 underlying history of hypertension #4 underlying history of hyperlipidemia #5 underlying history of [id number] diabetes mellitus #6 underlying history of nonobstructive coronary artery disease, last cardiac catheterization in January 2018 Hospital Course George Kang is a 68-year-old male patient of Dr. watts who presented to [facility] emergency room with a chief complaint of chest pain , patient stated that he was at [facility] when he started having pressure in his chest, this was accompanied with nausea and diaphoresis and lightheadedness, he came to emergency room, he was found to have hypertensive emergency with blood pressure of 219/106 he was treated in the emergency room his blood pressure was Jayne eyes done he was admitted to telemetry floor for further evaluation and treatment. Chest pain resolved while patient was in the emergency room EKG revealed evidence of sinus tachycardia was left ventricular hypertrophy and repolarization abnormality, repeat chest x-ray revealed sinus rhythm with left ventricular hypertrophy. Troponin level in the emergency room was 0.015, there was evidence of elevated BUN at 32 and elevated creatinine at 1.27. Patient had a cardiac catheterization in January 2018 which revealed mild coronary artery disease without any need for intervention at that time . Patient also has known history of hypertension, hyperlipidemia, and non-insulin- dependent diabetes mellitus On 07/05/2018 patient has been cleared for discharge from cardiology standpoint. 2-D echo completed and reviewed with Kalli EDWARDS per cardiology. Patient to follow-up outpatient with [employer]. Patient's Lopressor discontinued and Coreg and Dyazide has been added per cardiology. Patient to follow-up with primary care provider and cardiology services. This time patient denies chest pain or shortness breath. Patient denies nausea vomiting or diarrhea. Patient denies any urinary symptoms. Patient is eager to go home. I performed an examination of the patient and discussed their management with the Nurse Practitioner. I have reviewed the Nurse Practitioner's notes and agree with the documented findings and plan of care Patient Condition at Discharge: Stable Plan - Discharge Summary New Discharge Prescriptions: New Carvedilol [Coreg] 6.25 mg PO BID-W/MEALS #60 tab Triamterene-Hctz 37.5-25Mg [Dyazide 37.5-25 Capsule] 1 each PO DAILY #30 cap Continue amLODIPine [Norvasc] 10 mg PO HS Pravastatin Sodium [Pravachol] 40 mg PO QAM metFORMIN HCL 1,000 mg PO BID Losartan [Cozaar] 50 mg PO BID Aspirin 81 mg PO DAILY #30 chew Clopidogrel [Plavix] 75 mg PO DAILY #30 tab Nitroglycerin Sl Tabs [Nitrostat] 0.4 mg SUBLINGUAL Q5M PRN #25 tab PRN Reason: Chest Pain Discontinued Metoprolol Tartrate [Lopressor] 12.5 mg PO BID #60 tab Discharge Medication List Losartan [Cozaar] 50 mg PO BID 01/16/18 [History] Pravastatin Sodium [Pravachol] 40 mg PO QAM 01/16/18 [History] amLODIPine [Norvasc] 10 mg PO HS 01/16/18 [History] metFORMIN HCL 1,000 mg PO BID 01/16/18 [History] Aspirin 81 mg PO DAILY #30 chew 01/19/18 [Rx] Clopidogrel [Plavix] 75 mg PO DAILY #30 tab 01/19/18 [Rx] Nitroglycerin Sl Tabs [Nitrostat] 0.4 mg SUBLINGUAL Q5M PRN #25 tab 01/19/18 [Rx ] Carvedilol [Coreg] 6.25 mg PO BID-W/MEALS #60 tab 07/05/18 [Rx] Triamterene-Hctz 37.5-25Mg [Dyazide 37.5-25 Capsule] 1 each PO DAILY #30 cap [Rx] Follow up Appointment(s)/Referral(s): Carmela Watts MD [Primary Care Provider] - 1-2 days Courtney Duran MD [STAFF PHYSICIAN] - 1 Week Eduardo Lawson MD [STAFF PHYSICIAN] - 1 Week Activity/Diet/Wound Care/Special Instructions: Diet heart healthy Activity as tolerated Discharge Disposition: HOME SELF-CARE
== END 2018-07-05 16:17 | disposition home or self-care (01) ==
LOC: EC 19:08 → 6SEL 21:49
PROVIDERS: ADMIT Internal Medicine; ATTEND Internal Medicine
DX: R07.89 Other chest pain (principal); I16.1 Hypertensive emergency; I35.2 Nonrheumatic aortic (valve) stenosis with insufficiency; E78.5 Hyperlipidemia, unspecified; I25.10 Atherosclerotic heart disease of native coronary artery without angina pectoris; I10 Essential (primary) hypertension; E11.9 Type 2 diabetes mellitus without complications; E66.9 Obesity, unspecified; Z68.33 Body mass index [BMI] 33.0-33.9, adult; Z79.84 Long term (current) use of oral hypoglycemic drugs; Z79.82 Long term (current) use of aspirin; Z79.02 Long term (current) use of antithrombotics/antiplatelets; Z79.899 Other long term (current) drug therapy; Z88.8 Allergy status to other drugs, medicaments and biological substances; Z86.73 Personal history of transient ischemic attack (TIA), and cerebral infarction without residual deficits; Z87.891 Personal history of nicotine dependence; Z82.49 Family history of ischemic heart disease and other diseases of the circulatory system; Z83.3 Family history of diabetes mellitus; Z82.3 Family history of stroke
CPT/HCPCS: 99285 ×2; 96360 ×2; 96361 ×5; 36415; 93005; 93306; 80061; 80053 ×2; 80048; 82550 ×2; 82553 ×2; 83735; 84484 ×2; 85025 ×2; 85610; 85730; 83036; 71045; G0378 ×3

== ENCOUNTER 2018-08-24 23:11 | Emergency (ER) | payer MEDICARE ==
[2018-08-24 23:15] VITALS: TEMP 98.1
[2018-08-24] MEDS ORDERED: ASPIRIN 81 MG PO STA (23:17)
[2018-08-24] MEDS ORDERED: SODIUM CHLORIDE 0.9% 500 ML 500 ML IV STA (23:17)
[2018-08-24] MEDS ORDERED: IPRATROPIUM-ALBUTEROL 3 ML NEB INHALATION STA (23:47)
--- NOTE | 2018-08-24 23:47 | XR ---
EXAMINATION TYPE: XR chest 2V DATE OF EXAM: 08/24/2018 COMPARISON: 07/03/2018 HISTORY: Chest pain TECHNIQUE: Frontal and lateral views of the chest are obtained. FINDINGS: There is no heart failure nor confluent pneumonic infiltrate. Costophrenic angles are yasmany r. There are chest leads. Bony thorax is intact. IMPRESSION: No active cardiopulmonary disease. No change.
--- NOTE | 2018-08-24 23:49 | ED ---
General Adult HPI - General Chief complaint: Chest Pain Stated complaint: Chest pain,SARA Time Seen by Provider: 08/24/18 23:17 Source: patient Mode of arrival: wheelchair Limitations: no limitations - History of Present Illness Initial comments: Amparo is a 68-year-old male who presents to the emergency department today for evaluation of shortness of breath and chest pain. George reports he's been having some cough and shortness of breath for couple of days, he states that he is just getting over a cold. He states that this evening he went to [id number] and upon walking out to his car he could not catch his breath. He reports he had this in his car for a prolonged amount of time trying to catch his breath. He then felt comfortable driving home. Upon arriving home he continued feel short of breath and have a wheezy nonproductive cough. He experienced some chest pain with coughing. No exertional chest pain. No pain associated with diaphoresis or lightheadedness. No relief of the pain with rest. Pain is sharp and occurs with coughing. Patient reports that he has had colds in the past requiring breathing treatments however he has no formal diagnosis of asthma, COPD or emphysema. He reports he smokes socially as a teenager but has not been every day cigarette smoker and hasn't had a cigarette in 40-50 years. - Related Data Home Medications Medication Instructions Recorded Confirmed Losartan [Cozaar] 50 mg PO BID 01/16/18 08/24/18 Pravastatin Sodium [Pravachol] 40 mg PO QAM 01/16/18 08/24/18 amLODIPine [Norvasc] 10 mg PO HS 01/16/18 08/24/18 metFORMIN HCL 1,000 mg PO BID 01/16/18 08/24/18 Previous Rx's Medication Instructions Recorded Aspirin 81 mg PO DAILY #30 chew 01/19/18 Clopidogrel [Plavix] 75 mg PO DAILY #30 tab 01/19/18 Nitroglycerin Sl Tabs [Nitrostat] 0.4 mg SUBLINGUAL Q5M PRN #25 tab 01/19/18 Carvedilol [Coreg] 6.25 mg PO BID-W/MEALS #60 tab 07/05/18 Albuterol Inhaler [Ventolin Hfa 1 - 2 puff INHALATION RT-Q6H PRN 08/25/18 Inhaler] #1 inhaler Allergies Allergy/AdvReac Type Severity Reaction Status Date / Time orphenadrine citrate Allergy Rash/Hives Verified 08/24/18 23:33 [From Norflex] Review of Systems ROS Statement: Those systems with pertinent positive or pertinent negative responses have been documented in the HPI. ROS Other: All systems not noted in ROS Statement are negative. Past Medical History Past Medical History: CVA/TIA, Diabetes Mellitus, Hypertension, Myocardial Infarction (DC) Additional Past Medical History / Comment(s): TIA LONG TIME AGO, heart murmur History of Any Multi-Drug Resistant Organisms: None Reported Past Surgical History: Adenoidectomy, Heart Catheterization, Hernia Repair, Tonsillectomy Additional Past Surgical History / Comment(s): RT INGUINAL X4 SEPARATE SX Past Anesthesia/Blood Transfusion Reactions: Motion Sickness, Postoperative Nausea & Vomiting (PONV) Past Psychological History: No Psychological Hx Reported Smoking Status: Former smoker Past Alcohol Use History: None Reported Past Drug Use History: None Reported - Past Family History Father Family Medical History: CVA/TIA, Myocardial Infarction (DC) Additional Family Medical History / Comment(s): AT AGE 74 FROM [place] Mother Family Medical History: Diabetes Mellitus Additional Family Medical History / Comment(s): AT AGE 55 COMPLICATIONS FROM DIABETES General Exam Limitations: no limitations Course Vital Signs 08/24/18 08/25/18 08/25/18 23:12 00:00 00:43 Temperature 98.1 F Pulse Rate 76 61 57 L Respiratory 20 Rate Blood Pressure 202/86 177/96 O2 Sat by Pulse 95 96 Oximetry 08/25/18 08/25/18 00:54 01:29 Temperature Pulse Rate 63 54 L Respiratory 18 Rate Blood Pressure 148/88 O2 Sat by Pulse 98 Oximetry EKG Findings - EKG Comments: EKG Findings:: EKG obtained at 2325, rate is 66, rhythm is sinus, there is a leftward axis, normal intervals, CA 172, QRS is 88, QTC is 425. There are no acute ST elevations or depressions no evidence of acute ischemia or infarction. Medical Decision Making - Medical Decision Making The patient was seen and evaluated, history was obtained from the patient, On physical exam the patient is wheezing and has a nonproductive cough Patient does report a history of wheezing in the past for which she has been prescribed albuterol inhalers. Currently out of his inhaler. Hasn't used one recently. EKG is nonischemic Labs and chest x-ray were ordered Labs no acute abnormalities, chest x-ray no evidence of pneumonia I suspect the patient's symptoms are secondary to a viral upper respiratory infection and bronchospasm. Patient's wheezing improved significantly after breathing treatment. At this time the patient is comfortable with the plan for discharge home. I will provide a second breathing treatment prior to discharge and a prescription for an albuterol inhaler. All questions pertaining to care were answered best my ability, return parameters were discussed and the patient was discharged home in stable condition The patient will be referred to general surgery for outpatient follow-up of umbilical hernia - Lab Data Result diagrams: 08/25/18 00:00 08/25/18 00:00 Lab Results 08/25/18 08/25/18 08/25/18 Range/Units 00:00 00:00 00:00 WBC 9.4 (3.8-10.6) k/uL RBC 4.38 (4.30-5.90) m/uL Hgb 13.3 (13.0-17.5) gm/dL Hct 39.2 (39.0-53.0) % MCV 89.5 (80.0-100.0) fL MCH 30.4 (25.0-35.0) pg MCHC 33.9 (31.0-37.0) g/dL RDW 13.8 (11.5-15.5) % Plt Count 230 (150-450) k/uL Neutrophils % 70 % Lymphocytes % 19 % Monocytes % 5 % Eosinophils % 4 % Basophils % 1 % Neutrophils # 6.6 (1.3-7.7) k/uL Lymphocytes # 1.8 (1.0-4.8) k/uL Monocytes # 0.5 (0-1.0) k/uL Eosinophils # 0.3 (0-0.7) k/uL Basophils # 0.1 (0-0.2) k/uL PT (9.0-12.0) sec INR (<1.2) APTT (22.0-30.0) sec Sodium 137 (137-145) mmol/L Potassium 4.8 (3.5-5.1) mmol/L Chloride 103 (98-107) mmol/L Carbon Dioxide 26 (22-30) mmol/L Anion Gap 8 mmol/L BUN 29 H (9-20) mg/dL Creatinine 1.04 (0.66-1.25) mg/dL Est GFR (CKD-EPI)AfAm 86 (>60 ml/min/1.73 sqM) Est GFR (CKD-EPI)NonAf 74 (>60 ml/min/1.73 sqM) Glucose 136 H (74-99) mg/dL Calcium 10.3 H (8.4-10.2) mg/dL Magnesium 1.8 (1.6-2.3) mg/dL Total Bilirubin 0.5 (0.2-1.3) mg/dL AST 18 (17-59) U/L ALT 21 (21-72) U/L Alkaline Phosphatase 70 (38-126) U/L Total Creatine Kinase 114 (55-170) U/L CK-MB (CK-2) 1.4 (0.0-2.4) ng/mL CK-MB (CK-2) Rel Index 1.2 Troponin I 0.013 (0.000-0.034) ng/mL NT-Pro-B Natriuret Pep pg/mL Total Protein 7.4 (6.3-8.2) g/dL Albumin 4.3 (3.5-5.0) g/dL 08/25/18 08/25/18 Range/Units 00:00 00:00 WBC (3.8-10.6) k/uL RBC (4.30-5.90) m/uL Hgb (13.0-17.5) gm/dL Hct (39.0-53.0) % MCV (80.0-100.0) fL MCH (25.0-35.0) pg MCHC (31.0-37.0) g/dL RDW (11.5-15.5) % Plt Count (150-450) k/uL Neutrophils % % Lymphocytes % % Monocytes % % Eosinophils % % Basophils % % Neutrophils # (1.3-7.7) k/uL Lymphocytes # (1.0-4.8) k/uL Monocytes # (0-1.0) k/uL Eosinophils # (0-0.7) k/uL Basophils # (0-0.2) k/uL PT 9.9 (9.0-12.0) sec INR 1.0 (<1.2) APTT 24.1 (22.0-30.0) sec Sodium (137-145) mmol/L Potassium (3.5-5.1) mmol/L Chloride (98-107) mmol/L Carbon Dioxide (22-30) mmol/L Anion Gap mmol/L BUN (9-20) mg/dL Creatinine (0.66-1.25) mg/dL Est GFR (CKD-EPI)AfAm (>60 ml/min/1.73 sqM) Est GFR (CKD-EPI)NonAf (>60 ml/min/1.73 sqM) Glucose (74-99) mg/dL Calcium (8.4-10.2) mg/dL Magnesium (1.6-2.3) mg/dL Total Bilirubin (0.2-1.3) mg/dL AST (17-59) U/L ALT (21-72) U/L Alkaline Phosphatase (38-126) U/L Total Creatine Kinase (55-170) U/L CK-MB (CK-2) (0.0-2.4) ng/mL CK-MB (CK-2) Rel Index Troponin I (0.000-0.034) ng/mL NT-Pro-B Natriuret Pep 316 pg/mL Total Protein (6.3-8.2) g/dL Albumin (3.5-5.0) g/dL Disposition Clinical Impression: Acute bronchospasm Disposition: HOME SELF-CARE Instructions: Acute Bronchitis (ED), Umbilical Hernia (ED) Prescriptions: Albuterol Inhaler [Ventolin Hfa Inhaler] 1 - 2 puff INHALATION RT-Q6H PRN #1 inhaler PRN Reason: Wheezing Is patient prescribed a controlled substance at d/c from ED?: No Referrals: Carmela Watts MD [Primary Care Provider] - 1-2 days Sudeep Chao MD [STAFF PHYSICIAN] - 1-2 days Alondra Infante MD [STAFF PHYSICIAN] - 1-2 days
[2018-08-25 00:10] LABS: Basophils # (A) 0.1 k/uL (0-0.2); Basophils % (A) 1 %; Eosinophils # (A) 0.3 k/uL (0-0.7); Eosinophils % (A) 4 %; HCT 39.2 % (39.0-53.0); HGB 13.3 gm/dL (13.0-17.5); Lymphocytes # (A) 1.8 k/uL (1.0-4.8); Lymphocytes % (A) 19 %; MCH 30.4 pg (25.0-35.0); MCHC 33.9 g/dL (31.0-37.0); MCV 89.5 fL (80.0-100.0); Mean Platelet Volume 6.7; Monocytes # (A) 0.5 k/uL (0-1.0); Monocytes % (A) 5 %; Neutrophils # (A) 6.6 k/uL (1.3-7.7); Neutrophils % (A) 70 %; Platelet Count 230 k/uL (150-450); RBC 4.38 m/uL (4.30-5.90); RDW 13.8 % (11.5-15.5); WBC 9.4 k/uL (3.8-10.6)
[2018-08-25 00:22] LABS: Partial Thromboplastin Time 24.1 sec (22.0-30.0); Prothrombin Time 9.9 sec (9.0-12.0)
[2018-08-25 00:31] LABS: Albumin 4.3 g/dL (3.5-5.0); Calcium 10.3 mg/dL (8.4-10.2); Magnesium 1.8 mg/dL (1.6-2.3); Potassium 4.8 mmol/L (3.5-5.1); Total Bilirubin 0.5 mg/dL (0.2-1.3); Total Protein 7.4 g/dL (6.3-8.2)
[2018-08-25 00:46] LABS: Creatine Kinase MB 1.4 ng/mL (0.0-2.4); Troponin I 0.013 ng/mL (0.000-0.034)
[2018-08-25] MEDS ORDERED: IPRATROPIUM-ALBUTEROL 3 ML NEB INHALATION STA (02:13)
[2018-08-25 03:07] VITALS: BP 142/80; PULSE 59; RESP 16
--- NOTE | 2018-09-03 01:01 | CDI ---
Dear Mary Zhong DO: Please do addendum Physical Examination. Thank you, Vinicio Mcintyre, Software Intern. If you have any questions, please contact Director Of Instrumental Music at [phone]. [facility]
== END 2018-08-25 03:10 | disposition home or self-care (01) ==
LOC: EC 23:11
DX: J98.01 Acute bronchospasm (principal); K42.9 Umbilical hernia without obstruction or gangrene; E11.9 Type 2 diabetes mellitus without complications; I10 Essential (primary) hypertension; I25.2 Old myocardial infarction; Z87.891 Personal history of nicotine dependence; Z88.8 Allergy status to other drugs, medicaments and biological substances; Z79.84 Long term (current) use of oral hypoglycemic drugs; Z79.899 Other long term (current) drug therapy; Z90.89 Acquired absence of other organs; Z82.49 Family history of ischemic heart disease and other diseases of the circulatory system; Z95.818 Presence of other cardiac implants and grafts
CPT/HCPCS: 36415; 71046; 80053; 82550; 82553; 83735; 83880; 84484; 85025; 85610; 85730; 93005; 94640; 96360; 99285

== ENCOUNTER → 2018-09-17 | Outpatient (CLI) | payer MEDICARE ==
--- NOTE | 2018-09-17 15:33 | CT ---
EXAMINATION TYPE: CT abdomen pelvis wo con DATE OF EXAM: 09/17/2018 HISTORY: SBO per order. CT DLP: 1038.6 mGycm. Automated Exposure Control for Dose Reduction was Utilized. TECHNIQUE: CT scan of the abdomen and pelvis is performed with oral but without IV contrast. COMPARISON: CT November 08, 2014 FINDINGS: Within the limitations of a non-contrast study, the following observations are made. LUNG BASES: No significant abnormality is appreciated. LIVER/GB: No significant abnormality is appreciated. PANCREAS: No significant abnormality is seen. SPLEEN: No significant abnormality is seen. ADRENALS: No significant abnormality is seen. KIDNEYS: No significant abnormality is seen. BOWEL: Oral contrast reaches level of the left colon. There is no suspicious small or large bowel dil atation. There is mild prominence of fecal material in the transverse and left colon. There is a wide mouth large ventral wall hernia containing portion of sigmoid colon without significant proximal dila tation to suggest obstruction. There are diverticula in the mid to distal sigmoid colon past this lev el without CT evidence for acute diverticulitis. Some eccentric thickening sigmoid rectal junction ri ght aspect axial image 80 could reflect product of tortuous course, correlation with colonoscopy advi sed if has not been performed last 3 years. GENITAL ORGANS: Prostate gland is upper limits of normal in size. LYMPH NODES: No greater than 1cm abdominal or pelvic lymph nodes are appreciated. OSSEOUS STRUCTURES: Moderate disc space narrowing L5-S1 level is seen with vacuum disc phenomenon and mild spurring. OTHER: There is small fat-containing left inguinal hernia. IMPRESSION: No bowel obstruction. Mild mid colonic fecal stasis. Ventral wall hernia containing porti on of sigmoid colon without significant obstruction. Distal colonic diverticulosis without CT evidenc e for acute diverticulitis.
== END ==
LOC: RADCTMAIN 13:34
PROVIDERS: ATTEND Surgery Plastic and Reconstructive Surgery
DX: K43.9 Ventral hernia without obstruction or gangrene (principal); K57.30 Diverticulosis of large intestine without perforation or abscess without bleeding; K59.8 Other specified functional intestinal disorders; Z88.8 Allergy status to other drugs, medicaments and biological substances
CPT/HCPCS: 74176

== ENCOUNTER → 2018-11-20 | Outpatient (CLI) | payer MEDICARE ==
[2018-11-20 11:46] LABS: HCT 36.3 % (39.0-53.0); HGB 12.3 gm/dL (13.0-17.5); MCH 30.6 pg (25.0-35.0); MCV 89.9 fL (80.0-100.0); Mean Platelet Volume 6.3; Platelet Count 223 k/uL (150-450); RBC 4.03 m/uL (4.30-5.90); RDW 13.9 % (11.5-15.5); WBC 5.8 k/uL (3.8-10.6)
[2018-11-20 16:33] LABS: Albumin 4.5 g/dL (3.80-4.90); Albumin/Globulin Ratio 2.14 (1.60-3.17); Calcium 10.1 mg/dL (8.7-10.3); Globulin 2.1 g/dL (1.6-3.3); Potassium 4.5 mmol/L (3.5-5.5); Total Bilirubin 0.4 mg/dL (0.2-1.2); Total Protein 6.6 g/dL (6.2-8.2)
== END | disposition home or self-care (01) ==
LOC: LABWHC1 10:58
PROVIDERS: ATTEND Surgery Plastic and Reconstructive Surgery
DX: K43.9 Ventral hernia without obstruction or gangrene (principal)
CPT/HCPCS: 36415; 80053; 85027

== ENCOUNTER → 2018-11-25 | Outpatient (CLI) | payer MEDICARE ==
[2018-11-25 12:52] VITALS: BP 142/64; PULSE 82; RESP 16; TEMP 98.1
[2018-11-25] MEDS: SODIUM CHLORIDE 0.9% 1,000 ML IV SCH ×2 (12:52→13:56)
== END ==
LOC: PROCWHC3 12:28
PROVIDERS: ATTEND Surgery Plastic and Reconstructive Surgery
DX: E86.0 Dehydration (principal)
CPT/HCPCS: 96360; 96361

== ENCOUNTER 2018-11-26 10:00 | Inpatient (IN) | payer MEDICARE ==
[2018-11-18 18:24] VITALS: BMI 31.5
--- NOTE | 2018-11-26 07:47 | P.GSHP ---
History of Present Illness H&P Date: 11/26/18 CHIEF COMPLAINT: Ventral hernia HISTORY OF PRESENT ILLNESS: The patient is a 68-year-old male who presents with a history of swelling and pain along the abdomen from a hernia. Now he presents for surgical intervention. PAST MEDICAL HISTORY: Please see list. PAST SURGICAL HISTORY: Please see list. MEDICATIONS: Please see list. ALLERGIES: Please see list. SOCIAL HISTORY: No illicit drug use FAMILY HISTORY: No reports of Crohn disease or ulcerative colitis. REVIEW OF ORGAN SYSTEMS: CONSTITUTIONAL: No reports of fevers or chills. No reports of weight loss despite prior attempts. GI: Denies any blood in stools or constipation. PHYSICAL EXAM: VITAL SIGNS: Stable GENERAL: Well-developed pleasant male in no acute distress. HEENT: No scleral icterus. Extraocular movements grossly intact. Moist buccal mucosa. NECK: Supple without lymphadenopathy. CHEST: Unlabored respirations. Equal bilateral excursions. CARDIOVASCULAR: Regular rate and rhythm. Distal 2+ pulses. ABDOMEN: Soft, nondistended. Palpable defect of the abdomen of the umbilicus. No peritoneal signs. MUSCULOSKELETAL: No clubbing, cyanosis, or edema. ASSESSMENT: 1. Umbilical Ventral hernia PLAN: 1. Recommend proceeding with robotic ventral hernia repair with mesh. 2. Benefits and risks of surgical intervention was discussed including possibility of open technique. 3. DVT prophylaxis. 4. Antibiotic prophylaxis. Past Medical History Past Medical History: COPD, CVA/TIA, Diabetes Mellitus, Hyperlipidemia, Hypertension, Memory Impairment, Myocardial Infarction (AL) Additional Past Medical History / Comment(s): TIA LONG TIME AGO; Heart Murmur. MILD MEMORY IMPAIRMENT. VENTRAL HERNIA CURRENTLY. Last Myocardial Infarction Date:: 01/16/18 History of Any Multi-Drug Resistant Organisms: None Reported Past Surgical History: Adenoidectomy, Heart Catheterization, Hernia Repair, Tonsillectomy Additional Past Surgical History / Comment(s): RT INGUINAL X4, SEPARATE SX, EXC TESTICLE. Past Anesthesia/Blood Transfusion Reactions: Motion Sickness, Postoperative Nausea & Vomiting (PONV) Smoking Status: Former smoker - Past Family History Father Family Medical History: CVA/TIA, Myocardial Infarction (AL) Additional Family Medical History / Comment(s): AT AGE 74 FROM [place] Mother Family Medical History: Diabetes Mellitus Additional Family Medical History / Comment(s): AT AGE 55 COMPLICATIONS FROM DIABETES Medications and Allergies Home Medications Medication Instructions Recorded Confirmed Type Losartan [Cozaar] 50 mg PO DAILY 01/16/18 11/25/18 History Pravastatin Sodium [Pravachol] 40 mg PO QAM 01/16/18 11/25/18 History amLODIPine [Norvasc] 10 mg PO HS 01/16/18 11/25/18 History metFORMIN HCL 1,000 mg PO BID 01/16/18 11/25/18 History Aspirin 81 mg PO DAILY #30 chew 01/19/18 11/25/18 Rx Clopidogrel [Plavix] 75 mg PO DAILY #30 tab 01/19/18 11/25/18 Rx Nitroglycerin Sl Tabs [Nitrostat] 0.4 mg SUBLINGUAL Q5M PRN #25 tab 01/19/1805/06 Rx Carvedilol [Coreg] 6.25 mg PO BID-W/MEALS #60 tab 07/05/18 11/25/18 Rx Albuterol Inhaler [Ventolin Hfa 1 - 2 puff INHALATION RT-Q6H PRN 08/25/18 Rx Inhaler] #1 inhaler Pantoprazole [Protonix] 40 mg PO DAILY 11/18/18 11/25/18 History Triamterene-Hctz 37.5-25Mg 1 cap PO DAILY 11/18/18 11/25/18 History [Dyazide 37.5-25 Capsule] Allergies Allergy/AdvReac Type Severity Reaction Status Date / Time orphenadrine citrate Allergy Rash/Hives Verified 11/25/18 12:40 [From Norflex]
[~2018-11-26 10:00] MED LIST: ACETAMINOPHEN IV (For NPO) 1,000 MG in EMPTY BAG 1 BAG IVPB ONE; DEXAMETHASONE SOD PHOSPHATE 10 MG/ML 1 ML VIAL IV ONE; HEPARIN SODIUM,PORCINE 5,000 UNIT/ML 1 ML VIAL SQ ONE; MIDAZOLAM 2 MG/2 ML VIAL IV PRN; ONDANSETRON 4 MG/2 ML VIAL IVP ONE; ceFAZolin IN SWFI 2 GM/20 ML SYRINGE IVP ONE
[2018-11-26] MEDS: LACTATED RINGERS 1,000 ML IV SCH ×2 (11:43→17:56)
[2018-11-26 11:47] LABS: Glucose,Whole Blood 136 mg/dL (75-99)
[2018-11-26] MEDS ORDERED: MIDAZOLAM 2 MG/2 ML VIAL IVP ONE ×2 (12:03→12:04)
[2018-11-26] MEDS ORDERED: fentaNYL (PF) 50 MCG/ML 2 ML AMP IVP ONE ×2 (12:03→12:04)
--- NOTE | 2018-11-26 12:25 | P.ONQ ---
Anesthesiology Proc Note - PNB - Peripheral Nerve Block Performed Bilateral Rectus Abdominis Single Time Out Performed: Yes Procedure Start Time: 12:03 Procedure Stop Time: 12:15 Indication: Analgesia, Requested by physician Specifically requested for management of pain by DrLuther: Alondra Infante Sedation Type: Sedate with meaningful contact maintained Preparation: Sterile Prep Position: Supine Needle Size: 100mm (4") (p[place]) Needle Gauge: 21 Technique: Ultrasound Injectate: 0.5% Ropivacaine (see comment for volume) (20 ml for the Rt side , and 20 ml for the left side) Blood Aspirated: No Pain Paresthesia on Injection Noted: No Resistance on Injection: Normal Events: Uneventful and Well Tolerated
[2018-11-26] MEDS ORDERED: BUPIVACAIN-EPI 0.25%-1:200,000 30 ML VIAL SQ ONE ×2 (14:53→15:37)
[2018-11-26] MEDS ORDERED: MIDAZOLAM 2 MG/2 ML VIAL ONE (15:06)
[2018-11-26] MEDS ORDERED: SUCCINYLCHOLINE CHLORIDE 100 MG/5 ML SYR IV ONE (15:06)
[2018-11-26] MEDS ORDERED: NEOSTIGMINE 1 MG/ML 10 ML VIAL ONE (15:06)
[2018-11-26] MEDS ORDERED: PHENYLEPHRINE-0.9% NACL SYG 1 MG/10 ML SYRINGE ONE (15:06)
[2018-11-26] MEDS ORDERED: GLYCOPYRROLATE 0.2 MG/ML 2 ML VIAL ONE (15:06)
[2018-11-26] MEDS ORDERED: ROCURONIUM BROMIDE 10 MG/ML 10 ML VIAL IV ONE (15:06)
[2018-11-26] MEDS ORDERED: PROPOFOL 10 MG/ML 20 ML VIAL IV ONE (15:06)
[2018-11-26] MEDS ORDERED: LIDOCAINE 1% INJ 10MG/ML (20 ML MDV) ONE (15:06)
[2018-11-26] MEDS ORDERED: MORPHINE SULFATE 10 MG/ML SYRINGE ONE (15:06)
[2018-11-26] MEDS ORDERED: ROPIVACAINE 5 MG/ML 30 ML VIAL ONE (15:06)
[2018-11-26] MEDS ORDERED: fentaNYL (PF) 50 MCG/ML 2 ML AMP ONE (15:06)
[2018-11-26] MEDS ORDERED: LACTATED RINGERS 1,000 ML IV ONE (16:20)
[2018-11-26] MEDS ORDERED: ACETAMINOPHEN IV (For NPO) 1,000 MG in EMPTY BAG 1 BAG IVPB ONE (16:32)
[2018-11-26] MEDS ORDERED: NALOXONE 0.4 MG/ML 1 ML VIAL IV PRN (16:32)
[2018-11-26] MEDS ORDERED: NITROGLYCERIN SL TABS 0.4 MG TAB SUBLINGUAL PRN (16:36)
--- NOTE | 2018-11-26 16:40 | P.OP ---
Date of Procedure: 11/26/18 Description of Procedure: SURGEON: CHUCK MUNOZ MD PREOPERATIVE DIAGNOSES: 1. Initial umbilical hernia with incarceration and small bowel obstruction 2. Ischemic cardiomyopathy 3. Hypertensive heart disease 4. Previous history of cerebrovascular accident 5. History of transient ischemic attack 6. Chronic obstructive pulmonary disease 7. Hyperlipidemia 8. Diabetes type 2, controlled, non-insulin dependent 9. Gastroesophageal reflux disease 10. Chronic antiplatelet therapy 11. History of myocardial infarction 12. Memory impairment 13. Post-op nausea and vomiting 14. Obesity due to excess calories, BMI 31.6 POSTOPERATIVE DIAGNOSES: 1. Initial umbilical hernia with incarceration and small bowel obstruction, 4- cm incarcerated hernia without gangrene 2. Ischemic cardiomyopathy 3. Hypertensive heart disease 4. Previous history of cerebrovascular accident 5. History of transient ischemic attack 6. Chronic obstructive pulmonary disease 7. Hyperlipidemia 8. Diabetes type 2, controlled, non-insulin dependent 9. Gastroesophageal reflux disease 10. Chronic antiplatelet therapy 11. History of myocardial infarction 12. Memory impairment 13. Post-op nausea and vomiting 14. Obesity due to excess calories, BMI 31.6 OPERATION: 1. Robotic-assisted da Candido Xi laparoscopic reduction and repair of initial incarcerated ventral hernia 4-cm with mesh, ventralight ST mesh 11.4 cm COMPLICATIONS: None. Anesthesia: GETA, local Estimated Blood Loss (ml): 5 Pathology: none sent Condition: stable Disposition: floor INDICATIONS: The patient is a 68-year-old male who presents ventral hernia of the umbilicus. Surgical intervention with laparoscopic versus robotic and open techniques were reviewed. Placement of mesh was also reviewed. Benefits and risks were thoroughly described. Informed consent was obtained. DESCRIPTION OF PROCEDURE: The patient was brought into the operating room and laid in supine position. After general induction, the abdomen had been prepped and draped in standard sterile fashion. Ioban draping was also placed. Prior to incision, a timeout protocol was confirmed with surgical team regarding the patient's name including procedures to be performed. The robot was primed prior to the procedure. A field block using local anesthetic was placed along hernia site including the proposed port sites. Initial incision was made with an #11 blade along the left upper quadrant. A 0 degree 5 mm laparoscopic trocar entry was performed and insufflated. An 8 mm port was placed along the right upper quadrant and another at the epigastrium under direct localization. The 5- mm port was exchanged for an 8 mm robotic port. Placements of the ports were 15 cm from the target anatomy and 10 cm apart. The da Candido Xi robot was previously primed, prepped and draped then docked at the upper abdomen and placed in 14-degrees Trendelenberg. I then sat at the robot Da Candido Xi console where working arms of the robot including Bovie cautery connected to robotic scissors, vessel sealer, needle tow truck driver, and graspers placed by the conventions assistant. Fascial defect of 4 cm of the umbilicus was identified after cleaning the peritoneal fat of the abdominal wall and reducing an incarcerated omentum. A 12 mm port was placed along the left upper quadrant for placement of the mesh and for sutures. The incarcerated contents was reduced as the peritoneal fat was cleaned from the abdominal wall. Next, hemostasis was checked with cautery. The hernia defect was oversewn using #1 Stratafix with fascial imbrication x 3. Next, ventralight ST mesh 11.4 cm was placed with the rough side towards the abdominal wall. 2-0 VLOC 12 inch sutures were used to fixate the mesh. A final endoscopic imaging was obtained. All instruments and pneumoperitoneum were evacuated from the abdominal cavity. The da Candido Xi robot was undocked from the patient. I re-scrubbed into the case for closure of incisions. The fascia of the 12-mm port was probed and less than 8-mm in size. The incisions were reapproximated using 4-0 Monocryl in an interrupted subcuticular fashion. Liquid glue was applied to the skin after cleansing the skin with normal saline and dilute hydrogen peroxide. An abdominal binder was placed. An umbilical dressing was placed prior. At the end of the procedure, needle, sponge, and instrument count had been verified correct by surgical supply assistant. The patient was taken to the postanesthesia care unit in stable condition. FINDINGS: 1. Initial incarcerated umbilical incorporating small bowel over 10 cm with 4- cm fascial defect 2. Console time 23 minutes
[2018-11-26 16:42] LABS: Glucose,Whole Blood 168 mg/dL (75-99)
[2018-11-26] MEDS ORDERED: KETOROLAC 30 MG/ML 1 ML VIAL IVP SCH (16:45)
[2018-11-26] MEDS: HYDROmorphone 0.5 MG/0.5 ML SYRINGE IVP PRN ×2 (17:02→17:11)
[2018-11-26] MEDS: KETOROLAC 30 MG/ML 1 ML VIAL IVP SCH (17:54)
[2018-11-26] MEDS: CARVEDILOL 6.25 MG TAB PO SCH (17:55)
[2018-11-26 18:05] LABS: Glucose,Whole Blood 194 mg/dL (75-99)
[2018-11-26] MEDS: INSULIN ASPART (NovoLOG) 100 UNIT/ML VIAL SQ SCH (18:22)
[2018-11-26] MEDS: metFORMIN 500 MG TAB PO SCH (18:26)
[2018-11-26] MEDS ORDERED: TAMSULOSIN 0.4 MG CAP.ER.24H PO ONE (18:30)
[2018-11-26] MEDS ORDERED: TAMSULOSIN 0.4 MG CAP.ER.24H PO SCH (18:30)
[2018-11-26] MEDS: ONDANSETRON 4 MG/2 ML VIAL IVP PRN (19:27)
[2018-11-26 20:07] LABS: Glucose,Whole Blood 187 mg/dL (75-99)
[2018-11-26] MEDS: METOCLOPRAMIDE 5 MG/ML 2 ML VIAL IVP PRN (20:52)
[2018-11-26] MEDS: amLODIPine 10 MG TAB PO SCH (21:00)
[2018-11-26] MEDS: HYDROcodone/APAP 5-325MG 1 EACH TAB PO PRN (21:00)
[2018-11-27 00:03] LABS: Glucose,Whole Blood 158 mg/dL (75-99)
[2018-11-27] MEDS: INSULIN ASPART (NovoLOG) 100 UNIT/ML VIAL SQ SCH ×5 (00:07→23:59)
[2018-11-27] MEDS: KETOROLAC 30 MG/ML 1 ML VIAL IVP SCH ×4 (05:32→17:46)
[2018-11-27 05:59] LABS: Glucose,Whole Blood 118 mg/dL (75-99)
[2018-11-27] MEDS: HYDROcodone/APAP 5-325MG 1 EACH TAB PO PRN (06:26)
[2018-11-27] MEDS: ONDANSETRON 4 MG/2 ML VIAL IVP PRN ×2 (07:32→17:42)
[2018-11-27] MEDS: PANTOPRAZOLE 40 MG/10 ML VIAL IV SCH (08:54)
[2018-11-27] MEDS: TAMSULOSIN 0.4 MG CAP.ER.24H PO SCH (08:55)
[2018-11-27] MEDS: metFORMIN 500 MG TAB PO SCH ×2 (08:55→18:29)
[2018-11-27] MEDS: LOSARTAN 50 MG TAB PO SCH (08:55)
[2018-11-27] MEDS: CARVEDILOL 6.25 MG TAB PO SCH ×2 (08:55→18:29)
[2018-11-27] MEDS: TRIAMTERENE-HCTZ 37.5-25MG 1 EACH CAP PO SCH (08:55)
[2018-11-27] MEDS: PRAVASTATIN SODIUM 40 MG TAB PO SCH (08:55)
[2018-11-27] MEDS: ENOXAPARIN 40 MG/0.4 ML SYRINGE SQ SCH (08:56)
[2018-11-27 09:47] LABS: Calcium 9.6 mg/dL (8.4-10.2); Potassium 4.1 mmol/L (3.5-5.1)
--- NOTE | 2018-11-27 10:13 | P.PN ---
Progress Note - Text Progress Note Date: 11/27/18 The patient has complaints of incisional pain. He states he does not feel well enough to go home today. He's had some nausea. On exam his vital signs are stable. His abdomen soft. Incision sites are clean dry and intact. Status post robotic-assisted ventral hernia repair. Patient will most likely be discharged home the next 24-48 hours.
[2018-11-27] MEDS: METOCLOPRAMIDE 5 MG/ML 2 ML VIAL IVP PRN (11:13)
[2018-11-27 12:17] LABS: Glucose,Whole Blood 142 mg/dL (75-99)
--- NOTE | 2018-11-27 16:10 | P.CONS ---
History of Present Illness - Reason for Consult Consult date: 11/27/18 - History of Present Illness George Kang is a 68-year-old male patient of Dr. Jodee ramos who was admitted to [facility] by Dr. Jorge and underwent surgical repair of ventral hernia. Consultation was requested for medical management while hospitalized, patient has a known history of coronary artery disease with history of myocardial infarction 1 year ago, he also has known history of COPD, diabetes mellitus, hypertension, hyperlipidemia, and history of CVA. Patient was seen and examined on 11/27/2018 he is alert and oriented 3 in no apparent distress, he was having some nausea earlier this morning, he was also complaining of pain in the surgical site, otherwise he denies any complaints there is no fever or chills no headache or dizziness no chest pain no shortness of breath no cough no vomiting no diarrhea and no urinary symptoms. Past Medical History Past Medical History: COPD, CVA/TIA, Diabetes Mellitus, Hyperlipidemia, Hypertension, Memory Impairment, Myocardial Infarction ([place]) Additional Past Medical History / Comment(s): TIA LONG TIME AGO; Heart Murmur. MILD MEMORY IMPAIRMENT. VENTRAL HERNIA CURRENTLY. Last Myocardial Infarction Date:: 01/16/18 History of Any Multi-Drug Resistant Organisms: None Reported Past Surgical History: Adenoidectomy, Heart Catheterization, Hernia Repair, Tonsillectomy Additional Past Surgical History / Comment(s): RT INGUINAL X4, SEPARATE SX, EXC TESTICLE. Past Anesthesia/Blood Transfusion Reactions: Motion Sickness, Postoperative Nausea & Vomiting (PONV) Past Psychological History: No Psychological Hx Reported Smoking Status: Former smoker Past Alcohol Use History: None Reported Additional Past Alcohol Use History / Comment(s): STARTED SMOKING AT AGE 20-21 Past Drug Use History: None Reported - Past Family History Father Family Medical History: CVA/TIA, [place]ocardial Infarction ([place]) Additional Family Medical History / Comment(s): AT AGE 74 FROM [place] Mother Family Medical History: Diabetes Mellitus Additional Family Medical History / Comment(s): AT AGE 55 COMPLICATIONS FROM DIABETES Medications and Allergies Home Medications Medication Instructions Recorded Confirmed Type Losartan [Cozaar] 50 mg PO DAILY 01/16/18 11/26/18 History Pravastatin Sodium [Pravachol] 40 mg PO QAM 01/16/18 11/26/18 History amLODIPine [Norvasc] 10 mg PO HS 01/16/18 11/26/18 History metFORMIN HCL 1,000 mg PO BID 01/16/18 11/26/18 History Aspirin 81 mg PO DAILY #30 chew 01/19/18 11/26/18 Rx Clopidogrel [Plavix] 75 mg PO DAILY #30 tab 01/19/18 11/26/18 Rx Nitroglycerin Sl Tabs [Nitrostat] 0.4 mg SUBLINGUAL Q5M PRN #25 tab 01/19/1806/06 Rx Carvedilol [Coreg] 6.25 mg PO BID-W/MEALS #60 tab 07/05/18 11/26/18 Rx Albuterol Inhaler [Ventolin Hfa 1 - 2 puff INHALATION RT-Q6H PRN 08/25/18 Rx Inhaler] #1 inhaler Pantoprazole [Protonix] 40 mg PO DAILY 11/18/18 11/26/18 History Triamterene-Hctz 37.5-25Mg 1 cap PO DAILY 11/18/18 11/26/18 History [Dyazide 37.5-25 Capsule] HYDROcodone/APAP 7.5-325MG [[place] 1 tab PO Q4H PRN 3 Days #18 tab 11/26/18 Rx 7.5-325] Ibuprofen [Motrin] 600 mg PO Q8HR PRN #30 tab 11/26/18 Rx Tamsulosin [Flomax] 0.4 mg PO DAILY #3 cap 11/26/18 Rx Allergies Allergy/AdvReac Type Severity Reaction Status Date / Time orphenadrine citrate Allergy Rash/Hives Verified 11/26/18 17:53 [From Norflex] Physical Exam Vitals: Vital Signs Temp Pulse Resp BP BP Pulse Ox 11/27/18 14:56 97.7 F 53 L 16 119/64 93 L 11/27/18 01:30 97.9 F 80 16 143/75 95 11/27/18 00:00 14 11/26/18 19:15 88 143/82 11/26/18 19:00 84 152/85 11/26/18 18:45 81 152/77 11/26/18 18:30 77 142/73 11/26/18 18:15 84 144/84 11/26/18 18:00 83 157/85 11/26/18 17:45 91 168/87 11/26/18 17:30 97.7 F 80 16 159/87 88 L 11/26/18 16:45 80 16 148/84 98 11/26/18 16:35 97.4 F L 81 20 156/83 96 Intake and Output 11/27/18 11/27/18 11/27/18 06:59 14:59 22:59 Output Total 500 300 100 Balance -500 -300 -100 Output: Urine 500 300 100 Other: # Voids 1 In general patient is alert and oriented 3 in no apparent distress HEENT head normocephalic and atraumatic Neck is supple no JVD no goiter no lymphadenopathy Chest exam reveals a few scattered crackles no wheezing Cardiac exam reveals regular heart sounds S1 and S2 no gallops no murmurs Abdomen is soft nontender no organomegaly with normal bowel sounds Extremity exam reveals no edema no cyanosis or clubbing Neurological examination reveals no gross focal deficit Results CBC & Chem 7: 11/27/18 08:05 Labs: Abnormal Lab Results - Last 24 Hours (Table) 11/26/18 11/26/18 11/26/18 Range/Units 16:39 17:53 19:56 BUN (9-20) mg/dL Glucose (74-99) mg/dL POC Glucose (mg/dL) 168 H 194 H 187 H (75-99) mg/dL 11/26/18 11/27/18 11/27/18 Range/Units 23:53 05:29 08:05 BUN 22 H (9-20) mg/dL Glucose 139 H (74-99) mg/dL POC Glucose (mg/dL) 158 H 118 H (75-99) mg/dL 11/27/18 Range/Units 12:05 BUN (9-20) mg/dL Glucose (74-99) mg/dL POC Glucose (mg/dL) 142 H (75-99) mg/dL Assessment and Plan Plan: #1 status post robotic ventral hernia repair #2 underlying history of coronary artery disease with history of myocardial infarction 1 year ago #3 underlying history of diabetes mellitus #4 underlying history of hypertension #5 underlying history of hyperlipidemia #6 previous history of CVA #7 underlying history of COPD At this time patient is stable postoperatively Medication were reviewed and reordered For DVT prophylaxis he is maintained on Lovenox 40 mg subcu once daily For GI prophylaxis he is maintained on Protonix Will recheck labs in a.m. He had low urine output this morning and bladder scan will be checked to assess postvoid residual Will follow closely
[2018-11-27 18:35] LABS: Glucose,Whole Blood 195 mg/dL (75-99)
[2018-11-27] MEDS: amLODIPine 10 MG TAB PO SCH (20:00)
[2018-11-28] MEDS: KETOROLAC 30 MG/ML 1 ML VIAL IVP SCH ×3 (00:03→12:12)
[2018-11-28 00:09] LABS: Glucose,Whole Blood 112 mg/dL (75-99)
[2018-11-28] MEDS: HYDROcodone/APAP 5-325MG 1 EACH TAB PO PRN ×2 (03:30→19:47)
[2018-11-28 07:00] LABS: Glucose,Whole Blood 112 mg/dL (75-99)
[2018-11-28] MEDS: ONDANSETRON 4 MG/2 ML VIAL IVP PRN (07:08)
[2018-11-28 07:16] LABS: Basophils % (A) 0 %; Eosinophils # (A) 0.2 k/uL (0-0.7); Eosinophils % (A) 3 %; HGB 10.5 gm/dL (13.0-17.5); Lymphocytes # (A) 1.8 k/uL (1.0-4.8); Lymphocytes % (A) 23 %; MCH 29.9 pg (25.0-35.0); MCHC 32.8 g/dL (31.0-37.0); MCV 91.1 fL (80.0-100.0); Mean Platelet Volume 6.4; Monocytes # (A) 0.5 k/uL (0-1.0); Monocytes % (A) 6 %; Neutrophils # (A) 5.2 k/uL (1.3-7.7); Neutrophils % (A) 66 %; Platelet Count 205 k/uL (150-450); RBC 3.51 m/uL (4.30-5.90); RDW 13.9 % (11.5-15.5); WBC 7.9 k/uL (3.8-10.6)
[2018-11-28 07:29] LABS: Albumin 3.6 g/dL (3.5-5.0); Calcium 9.4 mg/dL (8.4-10.2); Potassium 4.2 mmol/L (3.5-5.1); Total Bilirubin 0.4 mg/dL (0.2-1.3); Total Protein 5.9 g/dL (6.3-8.2)
[2018-11-28] MEDS: metFORMIN 500 MG TAB PO SCH ×2 (08:49→17:09)
[2018-11-28] MEDS: PRAVASTATIN SODIUM 40 MG TAB PO SCH (08:49)
[2018-11-28] MEDS: TAMSULOSIN 0.4 MG CAP.ER.24H PO SCH (08:49)
[2018-11-28] MEDS: LOSARTAN 50 MG TAB PO SCH (08:49)
[2018-11-28] MEDS: ENOXAPARIN 40 MG/0.4 ML SYRINGE SQ SCH (08:49)
[2018-11-28] MEDS: PANTOPRAZOLE 40 MG/10 ML VIAL IV SCH (08:49)
[2018-11-28] MEDS: CARVEDILOL 6.25 MG TAB PO SCH ×2 (08:49→17:10)
[2018-11-28] MEDS: INSULIN ASPART (NovoLOG) 100 UNIT/ML VIAL SQ SCH ×4 (08:49→22:54)
[2018-11-28] MEDS: TRIAMTERENE-HCTZ 37.5-25MG 1 EACH CAP PO SCH (10:27)
--- NOTE | 2018-11-28 11:01 | P.PN ---
Progress Note - Text Progress Note Date: 11/28/18 The patient has complaints of nausea. He currently has a bucket in front of his face. On exam his vital signs are stable. His abdomen soft. Significant postoperative nausea. Patient's discharge will be held today. We will be placing him on clear liquids.
[2018-11-28 11:56] LABS: Glucose,Whole Blood 136 mg/dL (75-99)
[2018-11-28] MEDS: METOCLOPRAMIDE 5 MG/ML 2 ML VIAL IVP PRN (12:21)
--- NOTE | 2018-11-28 12:54 | P.PN ---
Subjective Progress Note Date: 11/28/18 George Kang is a 68-year-old male patient of Dr. Jodee ramos who was admitted to [facility] by Dr. Jorge and underwent surgical repair of ventral hernia. Consultation was requested for medical management while hospitalized, patient has a known history of coronary artery disease with history of myocardial infarction 1 year ago, he also has known history of COPD, diabetes mellitus, hypertension, hyperlipidemia, and history of CVA. Patient was seen and examined on 11/27/2018 he is alert and oriented 3 in no apparent distress, he was having some nausea earlier this morning, he was also complaining of pain in the surgical site, otherwise he denies any complaints there is no fever or chills no headache or dizziness no chest pain no shortness of breath no cough no vomiting no diarrhea and no urinary symptoms. On 11/28/2018 patient is alert and oriented 3 in no apparent distress he is complaining of nausea and 1 episode of vomiting this morning otherwise no complaints there is no fever or chills no headache or dizziness no chest pain no shortness of breath no cough no abdominal pain no diarrhea and no urinary symptoms Objective - Vital Signs Vital signs: Vital Signs Temp 98.4 F 11/28/18 07:00 Pulse 60 11/28/18 07:00 Resp 17 11/28/18 07:00 BP 130/80 11/28/18 07:00 Pulse Ox 91 L 11/28/18 01:00 Intake & Output 11/27/18 11/28/18 11/28/18 18:59 06:59 18:59 Intake Total 1170 Output Total 743 700 900 Balance -743 470 -900 Intake: Intake, IV Titration 240 Amount Lactated Ringers 1,000 ml 240 @ 20 mls/hr IV .Q24H [facility] Rx#:[id number] Oral 930 Output: Urine 400 700 900 Uretheral (Leal) 600 Post Void Residual 343 Other: Voiding Method Urinal Urinal # Voids 1 - Exam In general patient is alert and oriented 3 in no apparent distress HEENT head normocephalic and atraumatic Neck is supple no JVD no goiter no lymphadenopathy Chest exam reveals a few scattered crackles no wheezing Cardiac exam reveals regular heart sounds S1 and S2 no gallops no murmurs Abdomen is soft nontender no organomegaly with normal bowel sounds Extremity exam reveals no edema no cyanosis or clubbing Neurological examination reveals no gross focal deficit - Labs CBC & Chem 7: 11/28/18 06:28 11/28/18 06:28 Labs: Abnormal Lab Results - Last 24 Hours (Table) 11/27/18 11/27/18 11/28/18 Range/Units 18:04 23:57 06:28 RBC 3.51 L (4.30-5.90) m/uL Hgb 10.5 L (13.0-17.5) gm/dL Hct 32.0 L (39.0-53.0) % BUN (9-20) mg/dL Glucose (74-99) mg/dL POC Glucose (mg/dL) 195 H 112 H (75-99) mg/dL AST (17-59) U/L ALT (21-72) U/L Total Protein (6.3-8.2) g/dL 11/28/18 11/28/18 11/28/18 Range/Units 06:28 06:37 11:45 RBC (4.30-5.90) m/uL Hgb (13.0-17.5) gm/dL Hct (39.0-53.0) % BUN 21 H (9-20) mg/dL Glucose 108 H (74-99) mg/dL POC Glucose (mg/dL) 112 H 136 H (75-99) mg/dL AST 11 L (17-59) U/L ALT 16 L (21-72) U/L Total Protein 5.9 L (6.3-8.2) g/dL Assessment and Plan Plan: #1 status post robotic ventral hernia repair #2 underlying history of coronary artery disease with history of myocardial infarction 1 year ago #3 underlying history of diabetes mellitus #4 underlying history of hypertension #5 underlying history of hyperlipidemia #6 previous history of CVA #7 underlying history of COPD At this time patient is stable postoperatively, he is complaining of nausea and 1 episode of vomiting today Medication were reviewed and reordered For DVT prophylaxis he is maintained on Lovenox 40 mg subcu once daily For GI prophylaxis he is maintained on Protonix Will recheck labs in a.m. He had low urine output this morning and bladder scan will be checked to assess postvoid residual Will follow closely
[2018-11-28 17:11] LABS: Glucose,Whole Blood 127 mg/dL (75-99)
[2018-11-28 20:11] LABS: Glucose,Whole Blood 119 mg/dL (75-99)
[2018-11-28] MEDS: LACTATED RINGERS 1,000 ML IV SCH (20:51)
[2018-11-28] MEDS: amLODIPine 10 MG TAB PO SCH (20:55)
[2018-11-28 23:04] LABS: Glucose,Whole Blood 112 mg/dL (75-99)
[2018-11-29 00:58] LABS: Glucose,Whole Blood 117 mg/dL (75-99)
[2018-11-29] MEDS: HYDROcodone/APAP 5-325MG 1 EACH TAB PO PRN (01:08)
[2018-11-29] MEDS: METOCLOPRAMIDE 5 MG/ML 2 ML VIAL IVP PRN ×2 (02:10→13:11)
[2018-11-29 06:22] LABS: Glucose,Whole Blood 121 mg/dL (75-99)
[2018-11-29] MEDS: INSULIN ASPART (NovoLOG) 100 UNIT/ML VIAL SQ SCH ×3 (06:26→17:38)
[2018-11-29] MEDS: ENOXAPARIN 40 MG/0.4 ML SYRINGE SQ SCH (08:25)
[2018-11-29] MEDS: ONDANSETRON 4 MG/2 ML VIAL IVP PRN (08:26)
[2018-11-29] MEDS: PANTOPRAZOLE 40 MG/10 ML VIAL IV SCH (08:26)
[2018-11-29] MEDS: CARVEDILOL 6.25 MG TAB PO SCH ×3 (09:00→18:30)
[2018-11-29] MEDS: LACTATED RINGERS 1,000 ML IV SCH (09:00)
[2018-11-29] MEDS: metFORMIN 500 MG TAB PO SCH ×2 (09:00→18:30)
[2018-11-29 09:47] LABS: Calcium 9.6 mg/dL (8.4-10.2); Magnesium 1.5 mg/dL (1.6-2.3); Phosphorus 3.3 mg/dL (2.5-4.5)
[2018-11-29 10:13] LABS: Basophils % (A) 0 %; Eosinophils # (A) 0.2 k/uL (0-0.7); Eosinophils % (A) 3 %; HCT 34.9 % (39.0-53.0); HGB 11.2 gm/dL (13.0-17.5); Lymphocytes # (A) 1.3 k/uL (1.0-4.8); Lymphocytes % (A) 23 %; MCV 90.6 fL (80.0-100.0); Mean Platelet Volume 6.2; Monocytes # (A) 0.4 k/uL (0-1.0); Monocytes % (A) 7 %; Neutrophils # (A) 3.6 k/uL (1.3-7.7); Neutrophils % (A) 65 %; Platelet Count 215 k/uL (150-450); RBC 3.86 m/uL (4.30-5.90); RDW 13.6 % (11.5-15.5); WBC 5.6 k/uL (3.8-10.6)
[2018-11-29] MEDS: LOSARTAN 50 MG TAB PO SCH (10:26)
[2018-11-29] MEDS: TRIAMTERENE-HCTZ 37.5-25MG 1 EACH CAP PO SCH (10:28)
[2018-11-29] MEDS: PRAVASTATIN SODIUM 40 MG TAB PO SCH (10:28)
[2018-11-29] MEDS: TAMSULOSIN 0.4 MG CAP.ER.24H PO SCH (10:28)
--- NOTE | 2018-11-29 11:07 | P.PN ---
Subjective Progress Note Date: 11/30/18 George Kang is a 68-year-old male patient of Dr. Jodee ramos who was admitted to [facility] by Dr. Jorge and underwent surgical repair of ventral hernia. Consultation was requested for medical management while hospitalized, patient has a known history of coronary artery disease with history of myocardial infarction 1 year ago, he also has known history of COPD, diabetes mellitus, hypertension, hyperlipidemia, and history of CVA. Patient was seen and examined on 11/27/2018 he is alert and oriented 3 in no apparent distress, he was having some nausea earlier this morning, he was also complaining of pain in the surgical site, otherwise he denies any complaints there is no fever or chills no headache or dizziness no chest pain no shortness of breath no cough no vomiting no diarrhea and no urinary symptoms. On 11/28/2018 patient is alert and oriented 3 in no apparent distress he is complaining of nausea and 1 episode of vomiting this morning otherwise no complaints there is no fever or chills no headache or dizziness no chest pain no shortness of breath no cough no abdominal pain no diarrhea and no urinary symptoms 11/29/2018 patient still having episodes of nausea and vomiting. Vomited after popsicles this morning. Diet was put back to a clear liquid yesterday. Patient still not tolerating diet. Passing gas no bowel movement. Denies any chest pain or shortness of breath. We'll have nursing staff check for postvoid residual. At this time patient reporting that he feels like he is fully emptying the bladder. Magnesium is 1.5 that is being replaced. Creatinine 1.04. Objective - Vital Signs Vital signs: Vital Signs Temp 98.1 F 11/29/18 07:24 Pulse 69 11/29/18 07:24 Resp 16 11/29/18 07:24 BP 145/74 11/29/18 07:24 Pulse Ox 96 11/29/18 07:24 Intake & Output 11/28/18 11/29/18 11/29/18 18:59 06:59 18:59 Intake Total 0 Output Total 950 300 Balance -950 -300 0 Intake: Oral 0 Output: Urine 900 300 Uretheral (Leal) 600 Emesis 50 Other: Voiding Method Urinal Urinal # Voids 1 1 - Exam Head normocephalic Neck supple Lungs clear to auscultation bilaterally no wheezing or crackles Heart regular rate and rhythm S1-S2, no rub or gallop Abdomen is soft tender at incision site nondistended positive bowel sounds no hepatosplenomegaly Extremities no edema Neuro alert and orientated to 3 - Labs CBC & Chem 7: 11/29/18 08:50 11/29/18 08:50 Labs: Abnormal Lab Results - Last 24 Hours (Table) 11/28/18 11/28/18 11/28/18 Range/Units 11:45 16:48 19:59 RBC (4.30-5.90) m/uL Hgb (13.0-17.5) gm/dL Hct (39.0-53.0) % Sodium (137-145) mmol/L Chloride (98-107) mmol/L Glucose (74-99) mg/dL POC Glucose (mg/dL) 136 H 127 H 119 H (75-99) mg/dL Magnesium (1.6-2.3) mg/dL 11/28/18 11/29/18 11/29/18 Range/Units 22:53 00:46 06:10 RBC (4.30-5.90) m/uL Hgb (13.0-17.5) gm/dL Hct (39.0-53.0) % Sodium (137-145) mmol/L Chloride (98-107) mmol/L Glucose (74-99) mg/dL POC Glucose (mg/dL) 112 H 117 H 121 H (75-99) mg/dL Magnesium (1.6-2.3) mg/dL 11/29/18 11/29/18 Range/Units 08:50 08:50 RBC 3.86 L (4.30-5.90) m/uL Hgb 11.2 L (13.0-17.5) gm/dL Hct 34.9 L (39.0-53.0) % Sodium 135 L (137-145) mmol/L Chloride 97 L (98-107) mmol/L Glucose 141 H (74-99) mg/dL POC Glucose (mg/dL) (75-99) mg/dL Magnesium 1.5 L (1.6-2.3) mg/dL Assessment and Plan Assessment: #1 status post robotic ventral hernia repair #2 underlying history of coronary artery disease with history of myocardial infarction 1 year ago #3 underlying history of diabetes mellitus #4 underlying history of hypertension #5 underlying history of hyperlipidemia #6 previous history of CVA #7 underlying history of COPD #8 hypomagnesemia patient receiving magnesium supplement. Repeat magnesium level in a.m. #9: Concern for possibly urinary retention. Check postvoid residual. #10 nausea and vomiting. Continue Zofran as needed and Protonix. Patient reports that this has happened on his previous hernia surgeries. GI prophylaxis Protonix and DVT prophylaxis Lovenox. Encourage patient to ambulate. I performed an examination of the patient and discussed their management with the physician Budget Engineer. I have reviewed the Physician Budget Engineer's notes and agree with the documented findings and plan of care
[2018-11-29] MEDS: MAGNESIUM SULFATE-D5W PMX 1 GM in DEXTROSE/WATER 1 100ML.BAG IVPB SCH ×4 (11:25→19:41)
[2018-11-29 12:16] LABS: Hemoglobin A1C 6.2 % (4.0-6.0)
[2018-11-29 12:25] LABS: Glucose,Whole Blood 136 mg/dL (75-99)
[2018-11-29 16:54] LABS: Glucose,Whole Blood 188 mg/dL (75-99)
[2018-11-29] MEDS ORDERED: MAGNESIUM SULFATE-D5W PMX 1 GM in DEXTROSE/WATER 1 100ML.BAG IVPB SCH (17:00)
[2018-11-29] MEDS: amLODIPine 10 MG TAB PO SCH (20:01)
[2018-11-29] MEDS: KETOROLAC 30 MG/ML 1 ML VIAL IVP SCH (20:38)
[2018-11-29] MEDS: DOCUSATE 100 MG CAP PO SCH (20:38)
[2018-11-29 23:58] LABS: Glucose,Whole Blood 107 mg/dL (75-99)
[2018-11-30] MEDS: INSULIN ASPART (NovoLOG) 100 UNIT/ML VIAL SQ SCH ×3 (00:08→12:40)
[2018-11-30] MEDS: KETOROLAC 30 MG/ML 1 ML VIAL IVP SCH ×3 (01:57→12:40)
[2018-11-30] MEDS: LACTATED RINGERS 1,000 ML IV SCH (05:35)
[2018-11-30 06:02] LABS: Glucose,Whole Blood 151 mg/dL (75-99)
--- NOTE | 2018-11-30 07:35 | P.PN ---
Subjective Progress Note Date: 11/29/18 CHIEF COMPLAINT: Ventral hernia HISTORY OF PRESENT ILLNESS: The patient is a 68-year-old gentleman status post ventral hernia repair, POD 3. He reported nausea and was able to tolerate ice pops. He is voiding well. He reports nausea. Pain is controlled. PHYSICAL EXAM: VITAL SIGNS: Reviewed GENERAL: Well-developed in no acute distress. HEENT: No sclera icterus. Extraocular movements grossly intact. Moist buccal mucosa. Head is atraumatic, normocephalic. Hears conversational speech. No nasal drainage. NECK: Supple without lymphadenopathy. CHEST: Non-labored respirations and equal bilateral excursions. CARDIOVASCULAR: Palpable 2+ radial pulses. Regular rate and regular rhythm ABDOMEN: Soft. Nondistended. Dressing intact. Abdominal binder is intact MUSCULOSKELETAL: No clubbing, cyanosis or edema. NEUROLOGIC: No focal or lateralizing signs. Cranial nerves II through XII grossly intact. PSYCH: Appropriate affect. Alert and oriented to person, place and time. SKIN: Well perfused. Good skin turgor. LABS: Reviewed ASSESSMENT: 1. Incarcerated ventral hernia PLAN: 1. Increase diet 2. Adjust pain medications 3. Discharge tomorrow. Objective - Vital Signs Vital signs: Vital Signs Temp 98.2 F 11/29/18 23:41 Pulse 66 11/29/18 23:41 Resp 15 11/30/18 04:00 BP 136/70 11/29/18 23:41 Pulse Ox 91 L 11/29/18 23:41 Intake & Output 11/29/18 11/30/18 11/30/18 18:59 06:59 18:59 Intake Total 0 Output Total 925 Balance -925 Intake: Oral 0 Output: Urine 925 Other: Voiding Method Urinal - Labs CBC & Chem 7: 11/29/18 08:50 11/29/18 08:50 Labs: Abnormal Lab Results - Last 24 Hours (Table) 11/28/18 11/29/18 11/29/18 Range/Units 06:28 08:50 08:50 RBC 3.86 L (4.30-5.90) m/uL Hgb 11.2 L (13.0-17.5) gm/dL Hct 34.9 L (39.0-53.0) % Sodium 135 L (137-145) mmol/L Chloride 97 L (98-107) mmol/L Glucose 141 H (74-99) mg/dL POC Glucose (mg/dL) (75-99) mg/dL Hemoglobin A1c 6.2 H (4.0-6.0) % Magnesium 1.5 L (1.6-2.3) mg/dL 11/29/18 11/29/18 11/29/18 Range/Units 12:13 16:42 23:40 RBC (4.30-5.90) m/uL Hgb (13.0-17.5) gm/dL Hct (39.0-53.0) % Sodium (137-145) mmol/L Chloride (98-107) mmol/L Glucose (74-99) mg/dL POC Glucose (mg/dL) 136 H 188 H 107 H (75-99) mg/dL Hemoglobin A1c (4.0-6.0) % Magnesium (1.6-2.3) mg/dL 11/30/18 Range/Units 05:50 RBC (4.30-5.90) m/uL Hgb (13.0-17.5) gm/dL Hct (39.0-53.0) % Sodium (137-145) mmol/L Chloride (98-107) mmol/L Glucose (74-99) mg/dL POC Glucose (mg/dL) 151 H (75-99) mg/dL Hemoglobin A1c (4.0-6.0) % Magnesium (1.6-2.3) mg/dL Assessment and Plan (1) Hypomagnesemia Current Visit: Yes Status: Acute Code(s): E83.42 - HYPOMAGNESEMIA SNOMED Code(s): 648803348 (2) Incarcerated ventral hernia Current Visit: Yes Status: Acute Code(s): K43.6 - OTHER AND UNSP VENTRAL HERNIA WITH OBSTRUCTION, W/O GANGRENE SNOMED Code(s): 306050994 (3) Post-operative nausea and vomiting Current Visit: Yes Status: Acute Code(s): R11.2 - NAUSEA WITH VOMITING, UNSPECIFIED; Z98.890 - OTHER SPECIFIED POSTPROCEDURAL STATES SNOMED Code(s): 2684424 (4) Ischemic cardiomyopathy Current Visit: Yes Status: Acute Code(s): I25.5 - ISCHEMIC CARDIOMYOPATHY SNOMED Code(s): 176075889 (5) Hypertensive heart disease Current Visit: Yes Status: Acute Code(s): I11.9 - HYPERTENSIVE HEART DISEASE WITHOUT HEART FAILURE SNOMED Code(s): 69852336 (6) CVA (cerebral vascular accident) Current Visit: Yes Status: Acute Code(s): I63.9 - CEREBRAL INFARCTION, UNSPECIFIED SNOMED Code(s): 084119808 (7) TIA (transient ischemic attack) Current Visit: Yes Status: Acute Code(s): G45.9 - TRANSIENT CEREBRAL ISCHEMIC ATTACK, UNSPECIFIED SNOMED Code(s): 186310280
[2018-11-30 07:38] LABS: Basophils % (A) 0 %; Eosinophils # (A) 0.3 k/uL (0-0.7); Eosinophils % (A) 4 %; HCT 34.1 % (39.0-53.0); HGB 11.3 gm/dL (13.0-17.5); Lymphocytes # (A) 1.5 k/uL (1.0-4.8); Lymphocytes % (A) 23 %; MCH 29.5 pg (25.0-35.0); MCHC 33.1 g/dL (31.0-37.0); MCV 89.3 fL (80.0-100.0); Mean Platelet Volume 6.7; Monocytes # (A) 0.5 k/uL (0-1.0); Monocytes % (A) 8 %; Neutrophils # (A) 4.1 k/uL (1.3-7.7); Neutrophils % (A) 63 %; Platelet Count 223 k/uL (150-450); RBC 3.81 m/uL (4.30-5.90); RDW 13.7 % (11.5-15.5); WBC 6.5 k/uL (3.8-10.6)
--- NOTE | 2018-11-30 07:39 | P.DS ---
Providers Date of admission: 11/26/18 11:06 Expected date of discharge: 11/30/18 Attending physician: Alondra Infante Consults: 11/26/18 17:00 Consult Physician Routine Consulting Provider: Brett Esparza Consult Reason/Comments: medical management Do you want consulting provider notified?: Yes Primary care physician: Carmela Watts - Discharge Diagnosis(es) (1) Hypomagnesemia Current Visit: Yes Status: Acute (2) Incarcerated ventral hernia Current Visit: Yes Status: Acute (3) Post-operative nausea and vomiting Current Visit: Yes Status: Acute (4) Ischemic cardiomyopathy Current Visit: Yes Status: Acute (5) Hypertensive heart disease Current Visit: Yes Status: Acute (6) CVA (cerebral vascular accident) Current Visit: Yes Status: Acute (7) TIA (transient ischemic attack) Current Visit: Yes Status: Acute Hospital Course: POSTOPERATIVE DIAGNOSES: 1. Initial umbilical hernia with incarceration and small bowel obstruction, 4- cm incarcerated hernia without gangrene 2. Ischemic cardiomyopathy 3. Hypertensive heart disease 4. Previous history of cerebrovascular accident 5. History of transient ischemic attack 6. Chronic obstructive pulmonary disease 7. Hyperlipidemia 8. Diabetes type 2, controlled, non-insulin dependent 9. Gastroesophageal reflux disease 10. Chronic antiplatelet therapy 11. History of myocardial infarction 12. Memory impairment 13. Post-op nausea and vomiting 14. Obesity due to excess calories, BMI 31.6 INDICATIONS: The patient is a 68-year-old male who presents ventral hernia of the umbilicus. He has history of small bowel obstruction with incarceration. He underwent ventral hernia repair and hospitalized for chronic small bowel obstruction. Post-procedure he had severe postop nausea and vomiting including urinary retention that resolved. Low magnesium levels were replaced. Prior to discharge he was tolerating diet and stable. Procedures: OPERATION: 1. Robotic-assisted da Candido Xi laparoscopic reduction and repair of initial incarcerated ventral hernia 4-cm with mesh, ventralight ST mesh 11.4 cm COMPLICATIONS: None. Anesthesia: GETA, local Estimated Blood Loss (ml): 5 Pathology: none sent Condition: stable Disposition: floor Patient Condition at Discharge: Stable Plan - Discharge Summary Discharge Rx Participant: No New Discharge Prescriptions: New HYDROcodone/APAP 7.5-325MG [[place] 7.5-325] 1 tab PO Q4H PRN 3 Days #18 tab PRN Reason: Pain Ibuprofen [Motrin] 600 mg PO Q8HR PRN #30 tab PRN Reason: Pain Tamsulosin [Flomax] 0.4 mg PO DAILY #3 cap Continue amLODIPine [Norvasc] 10 mg PO HS Pravastatin Sodium [Pravachol] 40 mg PO QAM metFORMIN HCL 1,000 mg PO BID Losartan [Cozaar] 50 mg PO DAILY Aspirin 81 mg PO DAILY #30 chew Clopidogrel [Plavix] 75 mg PO DAILY #30 tab Nitroglycerin Sl Tabs [Nitrostat] 0.4 mg SUBLINGUAL Q5M PRN #25 tab PRN Reason: Chest Pain Carvedilol [Coreg] 6.25 mg PO BID-W/MEALS #60 tab Albuterol Inhaler [Ventolin Hfa Inhaler] 1 - 2 puff INHALATION RT-Q6H PRN #1 inhaler PRN Reason: Wheezing Pantoprazole [Protonix] 40 mg PO DAILY Triamterene-Hctz 37.5-25Mg [Dyazide 37.5-25 Capsule] 1 cap PO DAILY Discharge Medication List Losartan [Cozaar] 50 mg PO DAILY 01/16/18 [History] Pravastatin Sodium [Pravachol] 40 mg PO QAM 01/16/18 [History] amLODIPine [Norvasc] 10 mg PO HS 01/16/18 [History] metFORMIN HCL 1,000 mg PO BID 01/16/18 [History] Aspirin 81 mg PO DAILY #30 chew 01/19/18 [Rx] Clopidogrel [Plavix] 75 mg PO DAILY #30 tab 01/19/18 [Rx] Nitroglycerin Sl Tabs [Nitrostat] 0.4 mg SUBLINGUAL Q5M PRN #25 tab 01/19/18 [Rx ] Carvedilol [Coreg] 6.25 mg PO BID-W/MEALS #60 tab 07/05/18 [Rx] Albuterol Inhaler [Ventolin Hfa Inhaler] 1 - 2 puff INHALATION RT-Q6H PRN #1 inhaler 08/25/18 [Rx] Pantoprazole [Protonix] 40 mg PO DAILY 11/18/18 [History] Triamterene-Hctz 37.5-25Mg [Dyazide 37.5-25 Capsule] 1 cap PO DAILY 11/18/18 [ History] HYDROcodone/APAP 7.5-325MG [[place] 7.5-325] 1 tab PO Q4H PRN 3 Days #18 tab 11/26 [Rx] Ibuprofen [Motrin] 600 mg PO Q8HR PRN #30 tab 11/26/18 [Rx] Tamsulosin [Flomax] 0.4 mg PO DAILY #3 cap 11/26/18 [Rx] Follow up Appointment(s)/Referral(s): Alondra Infante MD [STAFF PHYSICIAN] - 12/07/18 Patient Instructions/Handouts: Laparoscopic Herniorrhaphy (IP), Abdominal Binder (DC), Umbilical Hernia Repair (DC) Activity/Diet/Wound Care/Special Instructions: No lifting over 4 pounds in 4 weeks. May shower. No bathtub soaks. WEAR ABDOMINAL BINDER AT ALL TIMES EXCEPT SHOWERING Discharge Disposition: HOME SELF-CARE
[2018-11-30 07:48] LABS: ALT 34 U/L (21-72); AST 34 U/L (17-59); Albumin 3.8 g/dL (3.5-5.0); Alkaline Phosphatase 52 U/L (38-126); Anion Gap 9 mmol/L; Blood Urea Nitrogen 15 mg/dL (9-20); Calcium 9.8 mg/dL (8.4-10.2); Carbon Dioxide 30 mmol/L (22-30); Chloride 96 mmol/L (98-107); Glucose 125 mg/dL (74-99); Magnesium 2.3 mg/dL (1.6-2.3); Potassium 3.7 mmol/L (3.5-5.1); Sodium 135 mmol/L (137-145); Total Bilirubin 0.4 mg/dL (0.2-1.3); Total Protein 6.4 g/dL (6.3-8.2)
[2018-11-30 08:05] VITALS: BP 133/78; PULSE 62; RESP 16; TEMP 98
[2018-11-30] MEDS: CARVEDILOL 6.25 MG TAB PO SCH (09:30)
[2018-11-30] MEDS: PANTOPRAZOLE 40 MG/10 ML VIAL IV SCH (09:30)
[2018-11-30] MEDS: PRAVASTATIN SODIUM 40 MG TAB PO SCH (09:30)
[2018-11-30] MEDS: metFORMIN 500 MG TAB PO SCH (09:30)
[2018-11-30] MEDS: DOCUSATE 100 MG CAP PO SCH (09:30)
[2018-11-30] MEDS: TAMSULOSIN 0.4 MG CAP.ER.24H PO SCH (09:30)
[2018-11-30] MEDS: LOSARTAN 50 MG TAB PO SCH (09:30)
[2018-11-30] MEDS: TRIAMTERENE-HCTZ 37.5-25MG 1 EACH CAP PO SCH (09:31)
--- NOTE | 2018-11-30 12:32 | P.PN ---
Subjective Progress Note Date: 11/30/18 George Kang is a 68-year-old male patient of Dr. Jodee ramos who was admitted to [facility] by Dr. Jorge and underwent surgical repair of ventral hernia. Consultation was requested for medical management while hospitalized, patient has a known history of coronary artery disease with history of myocardial infarction 1 year ago, he also has known history of COPD, diabetes mellitus, hypertension, hyperlipidemia, and history of CVA. Patient was seen and examined on 11/27/2018 he is alert and oriented 3 in no apparent distress, he was having some nausea earlier this morning, he was also complaining of pain in the surgical site, otherwise he denies any complaints there is no fever or chills no headache or dizziness no chest pain no shortness of breath no cough no vomiting no diarrhea and no urinary symptoms. On 11/28/2018 patient is alert and oriented 3 in no apparent distress he is complaining of nausea and 1 episode of vomiting this morning otherwise no complaints there is no fever or chills no headache or dizziness no chest pain no shortness of breath no cough no abdominal pain no diarrhea and no urinary symptoms 11/29/2018 patient still having episodes of nausea and vomiting. Vomited after popsicles this morning. Diet was put back to a clear liquid yesterday. Patient still not tolerating diet. Passing gas no bowel movement. Denies any chest pain or shortness of breath. We'll have nursing staff check for postvoid residual. At this time patient reporting that he feels like he is fully emptying the bladder. Magnesium is 1.5 that is being replaced. Creatinine 1.04. 11/30/2018 patient no longer having any nausea or vomiting. Tolerating regular diet. Surgery has cleared him for discharge. Magnesium level is normal. Patient is medical stable for discharge. Denies any chest pain shortness breath. Passing gas no bowel movement yet. Denies any difficulty with urinating. Post void residual checked by nursing yesterday with no evidence of urinary retention Objective - Vital Signs Vital signs: Vital Signs Temp 98.0 F 11/30/18 07:06 Pulse 62 11/30/18 07:06 Resp 16 11/30/18 07:06 BP 133/78 11/30/18 07:06 Pulse Ox 94 L 11/30/18 07:06 Intake & Output 11/29/18 11/30/1811/30/19 18:59 06:59 18:59 Intake Total 0 Output Total 925 Balance -925 Intake: Oral 0 Output: Urine 925 Other: Voiding Method Urinal - Exam Head normocephalic Neck supple Lungs clear to auscultation bilaterally no wheezing or crackles Heart regular rate and rhythm S1-S2, no rub or gallop Abdomen is soft tender at incision site nondistended positive bowel sounds no hepatosplenomegaly Extremities no edema Neuro alert and orientated to 3 - Labs CBC & Chem 7: 11/30/18 06:38 11/30/18 06:38 Labs: Abnormal Lab Results - Last 24 Hours (Table) 11/29/18 11/29/18 11/30/18 Range/Units 16:42 23:40 05:50 RBC (4.30-5.90) m/uL Hgb (13.0-17.5) gm/dL Hct (39.0-53.0) % Sodium (137-145) mmol/L Chloride (98-107) mmol/L Glucose (74-99) mg/dL POC Glucose (mg/dL) 188 H 107 H 151 H (75-99) mg/dL 11/30/18 11/30/18 Range/Units 06:38 06:38 RBC 3.81 L (4.30-5.90) m/uL Hgb 11.3 L (13.0-17.5) gm/dL Hct 34.1 L (39.0-53.0) % Sodium 135 L (137-145) mmol/L Chloride 96 L (98-107) mmol/L Glucose 125 H (74-99) mg/dL POC Glucose (mg/dL) (75-99) mg/dL Assessment and Plan Assessment: #1 status post robotic ventral hernia repair #2 underlying history of coronary artery disease with history of myocardial infarction 1 year ago #3 underlying history of diabetes mellitus #4 underlying history of hypertension #5 underlying history of hyperlipidemia #6 previous history of CVA #7 underlying history of COPD #8 hypomagnesemia patient receiving magnesium supplement. Repeat magnesium level in a.m. repeat magnesium 2.3 #9: Concern for possibly urinary retention. Repeat bladder scan no evidence of urinary retention. Patient was started on Flomax during this admission. #10 postoperative nausea and vomiting. Now resolved .Continue Zofran as needed and Protonix. Patient reports that this has happened on his previous hernia surgeries. GI prophylaxis Protonix and DVT prophylaxis Lovenox. Encourage patient to ambulate. Patient is medically stable for discharge. We'll have him follow-up with his PCP in 1 week. Recommend checking magnesium in 1 week. I performed an examination of the patient and discussed their management with the physician Owner Professional Engineer. I have reviewed the Physician Owner Professional Engineer's notes and agree with the documented findings and plan of care
[2018-11-30 12:43] LABS: Glucose,Whole Blood 103 mg/dL (75-99)
--- NOTE | 2018-12-02 09:37 | CDI ---
Documentation Clarification Form Date: 12/02/2018 8:37:08 AM From: Katina Choi RN CCDS Admit Date: 11/26/2018 11:06:00 AM Patient Name: George Kang Visit Number: [id number] Discharge Date: 11/30/2018 12:43:00 PM ATTENTION: The Clinical Documentation Specialists (CDI) and [facility] Coding Staff appreciate your assistance in clarifying documentation. Please respond to the clarification below the line at the bottom and electronically sign. The CDI & [facility] Coding staff will review the response and follow-up if needed. Please note: Queries are made part of the Legal Health Record. If you have any questions, please contact the author of this message via ITS. Dr. Alondra Infante Post procedural urinary retention is documented in the Discharge Summary . Patients Admitting Diagnosis: Umbilical hernia with incarceration and small bowel obstruction. Post-Operative Diagnosis: Umbilical hernia with incarceration and small bowel obstruction 4cm incarcerated hernia without gangrene Procedure performed: Robotic assisted daVinci Xi laparoscopic reduction and repair of initial incarcerated ventral hernia 4cm with mesh, ventralight ST mesh 11.cm History/Risk Factors: 68 year old male presents to [facility] for elective hernia surgery. Medical hx DM, COPD Clinical Indicators: Internal medicine progress note 11/30 "post void residual checked by nursing yesterday with no evidence of urinary retention" Treatment: Leal catheter insertion 11/27 and discontinued 11/28. Bladder scan. Flomax Consults: internal med In order to accurately reflect this patients severity of illness, please clarify if the post-operative urinary retention is: An expected post-procedural or post-surgical condition An unexpected post-procedural or post-surgical condition related to surgical care Other, please specify Unable to determine (Last Revision: January 2018) An expected post-procedural or post-surgical condition, 12/02/18 @ [facility]8 [facility]
== END 2018-11-30 12:43 | disposition home or self-care (01) | DRG 355 ==
LOC: 2ORMAIN 11:06 → 4SSUR 16:49
PROVIDERS: ADMIT Surgery Plastic and Reconstructive Surgery; ATTEND Surgery Plastic and Reconstructive Surgery
PROC: 8E0W4CZ Robotic Assisted Procedure of Trunk Region, Percutaneous Endoscopic Approach (ICD-10-PCS; 2018-11-26)
PROC: 0WUF4JZ Supplement Abdominal Wall with Synthetic Substitute, Percutaneous Endoscopic Approach (ICD-10-PCS; principal; 2018-11-26 12:55)
DX: K43.6 Other and unspecified ventral hernia with obstruction, without gangrene (principal); E83.42 Hypomagnesemia; J44.9 Chronic obstructive pulmonary disease, unspecified; I11.9 Hypertensive heart disease without heart failure; K91.0 Vomiting following gastrointestinal surgery; I25.10 Atherosclerotic heart disease of native coronary artery without angina pectoris; E11.9 Type 2 diabetes mellitus without complications; E78.5 Hyperlipidemia, unspecified; I25.5 Ischemic cardiomyopathy; K21.9 Gastro-esophageal reflux disease without esophagitis; I25.2 Old myocardial infarction; E66.09 Other obesity due to excess calories; Z68.31 Body mass index [BMI] 31.0-31.9, adult; Z86.73 Personal history of transient ischemic attack (TIA), and cerebral infarction without residual deficits; Z79.82 Long term (current) use of aspirin; Z79.02 Long term (current) use of antithrombotics/antiplatelets; Z79.84 Long term (current) use of oral hypoglycemic drugs; Z79.899 Other long term (current) drug therapy; Z87.891 Personal history of nicotine dependence; Z90.79 Acquired absence of other genital organ(s); Z88.8 Allergy status to other drugs, medicaments and biological substances; Z82.49 Family history of ischemic heart disease and other diseases of the circulatory system; Z82.3 Family history of stroke; Z83.3 Family history of diabetes mellitus; Y83.2 Surgical operation with anastomosis, bypass or graft as the cause of abnormal reaction of the patient, or of later complication, without mention of misadventure at the time of the procedure
CPT/HCPCS: 80048; 80053; 83036; 83735; 84100; 85025; 96360; 96361

== ENCOUNTER 2021-09-12 04:35 | Inpatient (IN) | payer MEDICARE ==
[2021-09-12] MEDS ORDERED: ACETAMINOPHEN TAB 500 MG TAB PO STA (04:41)
[2021-09-12] MEDS ORDERED: IPRATROPIUM-ALBUTEROL 3 ML NEB INHALATION STA (04:41)
[2021-09-12] MEDS ORDERED: IBUPROFEN 600 MG TAB PO STA (04:41)
[2021-09-12] MEDS ORDERED: SODIUM CHLORIDE 0.9% 1,000 ML IV STA (04:41)
[2021-09-12] MEDS ORDERED: MORPHINE SULFATE 2 MG/ML SYRINGE IVP STA (04:41)
--- NOTE | 2021-09-12 04:46 | ED ---
SOB HPI - General Stated Complaint: Weakness, SARA Time Seen by Provider: 09/12/21 04:39 - Related Data Home Medications Medication Instructions Recorded Confirmed Losartan [Cozaar] 50 mg PO DAILY 01/16/18 11/26/18 Pravastatin Sodium [Pravachol] 40 mg PO QAM 01/16/18 11/26/18 amLODIPine [Norvasc] 10 mg PO HS 01/16/18 11/26/18 metFORMIN HCL [Glucophage] 1,000 mg PO BID 01/16/18 11/26/18 Pantoprazole [Protonix] 40 mg PO DAILY 11/18/18 11/26/18 Triamterene-Hctz 37.5-25Mg 1 cap PO DAILY 11/18/18 11/26/18 [Dyazide 37.5-25 Capsule] Previous Rx's Medication Instructions Recorded Aspirin 81 mg PO DAILY #30 chew 01/19/18 Clopidogrel [Plavix] 75 mg PO DAILY #30 tab 01/19/18 Nitroglycerin Sl Tabs [Nitrostat] 0.4 mg SUBLINGUAL Q5M PRN #25 tab 01/19/18 carvediloL [Coreg] 6.25 mg PO BID-W/MEALS #60 tab 07/05/18 Albuterol Inhaler (Mhu) [Ventolin 1 - 2 puff INHALATION RT-Q6H PRN 08/25/18 Hfa Inhaler (Mhu)] #1 inhaler HYDROcodone/APAP 7.5-325MG [[place] 1 tab PO Q4H PRN 3 Days #18 tab 11/26/18 7.5-325] Ibuprofen [Motrin] 600 mg PO Q8HR PRN #30 tab 11/26/18 Tamsulosin [Flomax] 0.4 mg PO DAILY #3 cap 11/26/18 Allergies Allergy/AdvReac Type Severity Reaction Status Date / Time orphenadrine citrate Allergy Rash/Hives Verified 09/12/21 04:52 [From Norflex] Review of Systems ROS Statement: Those systems with pertinent positive or pertinent negative responses have been documented in the HPI. ROS Other: All systems not noted in ROS Statement are negative. Past Medical History Past Medical History: COPD, CVA/TIA, Diabetes Mellitus, Hyperlipidemia, Hypertension, Memory Impairment, Myocardial Infarction ([place]) Additional Past Medical History / Comment(s): TIA LONG TIME AGO; Heart Murmur. MILD MEMORY IMPAIRMENT. VENTRAL HERNIA CURRENTLY. Last Myocardial Infarction Date:: 01/16/18 History of Any Multi-Drug Resistant Organisms: None Reported Past Surgical History: Adenoidectomy, Heart Catheterization, Hernia Repair, Tonsillectomy Additional Past Surgical History / Comment(s): RT INGUINAL X4, SEPARATE SX, EXC TESTICLE. Past Anesthesia/Blood Transfusion Reactions: Motion Sickness, Postoperative Nausea & Vomiting (PONV) Past Psychological History: No Psychological Hx Reported Past Alcohol Use History: None Reported Additional Past Alcohol Use History / Comment(s): STARTED SMOKING AT AGE 20-21 Past Drug Use History: None Reported - Past Family History Father Family Medical History: CVA/TIA, Myocardial Infarction ([place]) Additional Family Medical History / Comment(s): AT AGE 74 FROM [place] Mother Family Medical History: Diabetes Mellitus Additional Family Medical History / Comment(s): AT AGE 55 COMPLICATIONS FROM DIABETES Course Vital Signs 09/12/21 04:37 Temperature 98.8 F Pulse Rate 81 Respiratory 24 Rate Blood Pressure 135/70 O2 Sat by Pulse 90 L Oximetry Medical Decision Making - Lab Data Result diagrams: 09/12/21 04:56 09/12/21 04:56 Lab Results 09/12/21 09/12/21 09/12/21 Range/Units 04:56 04:56 04:56 WBC 8.6 (3.8-10.6) k/uL RBC 3.98 L (4.30-5.90) m/uL Hgb 12.2 L (13.0-17.5) gm/dL Hct 34.3 L (39.0-53.0) % MCV 86.3 (80.0-100.0) fL MCH 30.6 (25.0-35.0) pg MCHC 35.4 (31.0-37.0) g/dL RDW 13.3 (11.5-15.5) % Plt Count 342 (150-450) k/uL MPV 7.4 Neutrophils % 76 % Lymphocytes % 16 % Monocytes % 6 % Eosinophils % 1 % Basophils % 0 % Neutrophils # 6.5 (1.3-7.7) k/uL Lymphocytes # 1.4 (1.0-4.8) k/uL Monocytes # 0.5 (0-1.0) k/uL Eosinophils # 0.1 (0-0.7) k/uL Basophils # 0.0 (0-0.2) k/uL PT 9.9 (9.0-12.0) sec INR 0.9 (<1.2) APTT 24.7 (22.0-30.0) sec Sodium 126 L (137-145) mmol/L Potassium 4.5 (3.5-5.1) mmol/L Chloride 96 L (98-107) mmol/L Carbon Dioxide 23 (22-30) mmol/L Anion Gap 7 mmol/L BUN 43 H (9-20) mg/dL Creatinine 1.17 (0.66-1.25) mg/dL Est GFR (CKD-EPI)AfAm 73 (>60 ml/min/1.73 sqM) Est GFR (CKD-EPI)NonAf 63 (>60 ml/min/1.73 sqM) Glucose 153 H (74-99) mg/dL Plasma Lactic Acid Lawrence (0.7-2.0) mmol/L Calcium 9.4 (8.4-10.2) mg/dL Phosphorus 3.1 (2.5-4.5) mg/dL Magnesium 1.6 (1.6-2.3) mg/dL Total Bilirubin 0.6 (0.2-1.3) mg/dL AST 18 (17-59) U/L ALT 12 (4-49) U/L Alkaline Phosphatase 60 (38-126) U/L Lactate Dehydrogenase 427 (313-618) U/L Troponin I (0.000-0.034) ng/mL C-Reactive Protein 7.3 H (<1.0) mg/dL Total Protein 6.7 (6.3-8.2) g/dL Albumin 3.6 (3.5-5.0) g/dL Coronavirus (PCR) (Not Detectd) 09/12/21 09/12/21 09/12/21 Range/Units 04:56 04:56 04:57 WBC (3.8-10.6) k/uL RBC (4.30-5.90) m/uL Hgb (13.0-17.5) gm/dL Hct (39.0-53.0) % MCV (80.0-100.0) fL MCH (25.0-35.0) pg MCHC (31.0-37.0) g/dL RDW (11.5-15.5) % Plt Count (150-450) k/uL MPV Neutrophils % % Lymphocytes % % Monocytes % % Eosinophils % % Basophils % % Neutrophils # (1.3-7.7) k/uL Lymphocytes # (1.0-4.8) k/uL Monocytes # (0-1.0) k/uL Eosinophils # (0-0.7) k/uL Basophils # (0-0.2) k/uL PT (9.0-12.0) sec INR (<1.2) APTT (22.0-30.0) sec Sodium (137-145) mmol/L Potassium (3.5-5.1) mmol/L Chloride (98-107) mmol/L Carbon Dioxide (22-30) mmol/L Anion Gap mmol/L BUN (9-20) mg/dL Creatinine (0.66-1.25) mg/dL Est GFR (CKD-EPI)AfAm (>60 ml/min/1.73 sqM) Est GFR (CKD-EPI)NonAf (>60 ml/min/1.73 sqM) Glucose (74-99) mg/dL Plasma Lactic Acid Lawrence 0.9 (0.7-2.0) mmol/L Calcium (8.4-10.2) mg/dL Phosphorus (2.5-4.5) mg/dL Magnesium (1.6-2.3) mg/dL Total Bilirubin (0.2-1.3) mg/dL AST (17-59) U/L ALT (4-49) U/L Alkaline Phosphatase (38-126) U/L Lactate Dehydrogenase (313-618) U/L Troponin I 0.023 (0.000-0.034) ng/mL C-Reactive Protein (<1.0) mg/dL Total Protein (6.3-8.2) g/dL Albumin (3.5-5.0) g/dL Coronavirus (PCR) Detected A (Not Detectd) - EKG Data -: EKG Interpreted by Me (EKG is sinus rhythm 60 WA 160 QRS 94 QTC 429) Disposition Clinical Impression: Coronavirus infection, Pneumonia due to COVID-19 virus, Hypoxia, Weakness, Hyp onatremia Disposition: ADMITTED IP TO THIS HOSP Condition: Serious Is patient prescribed a controlled substance at d/c from ED?: No Referrals: Carmela Watts MD [Primary Care Provider] - 1-2 days
[2021-09-12 05:11] LABS: Basophils % (A) 0 %; Eosinophils # (A) 0.1 k/uL (0-0.7); Eosinophils % (A) 1 %; HCT 34.3 % (39.0-53.0); HGB 12.2 gm/dL (13.0-17.5); Lymphocytes # (A) 1.4 k/uL (1.0-4.8); Lymphocytes % (A) 16 %; MCH 30.6 pg (25.0-35.0); MCHC 35.4 g/dL (31.0-37.0); MCV 86.3 fL (80.0-100.0); Mean Platelet Volume 7.4; Monocytes # (A) 0.5 k/uL (0-1.0); Monocytes % (A) 6 %; Neutrophils # (A) 6.5 k/uL (1.3-7.7); Neutrophils % (A) 76 %; Platelet Count 342 k/uL (150-450); RBC 3.98 m/uL (4.30-5.90); RDW 13.3 % (11.5-15.5); WBC 8.6 k/uL (3.8-10.6)
--- NOTE | 2021-09-12 05:17 | XR ---
EXAMINATION TYPE: XR chest 1V portable DATE OF EXAM: 09/12/2021 COMPARISON: 08/24/2018 HISTORY: Short of breath TECHNIQUE: Single view FINDINGS: There is some interstitial infiltrate and atelectasis in both lower lobes. There are chest leads. There is no obvious heart failure. Heart appears slightly enlarged. Thoracic aorta is atheroma tous. IMPRESSION: Inspiration decreased compared to old exam. There is some new mild infiltrate and atelect asis at the lung bases.
[2021-09-12 05:30] LABS: Albumin 3.6 g/dL (3.5-5.0); C Reactive Protein 7.3 mg/dL (<1.0); Calcium 9.4 mg/dL (8.4-10.2); Magnesium 1.6 mg/dL (1.6-2.3); Phosphorus 3.1 mg/dL (2.5-4.5); Potassium 4.5 mmol/L (3.5-5.1); Total Bilirubin 0.6 mg/dL (0.2-1.3); Total Protein 6.7 g/dL (6.3-8.2)
[2021-09-12 05:33] LABS: INR 0.9 (<1.2); Partial Thromboplastin Time 24.7 sec (22.0-30.0); Prothrombin Time 9.9 sec (9.0-12.0)
[2021-09-12] MEDS ORDERED: NALOXONE 0.4 MG/ML 1 ML VIAL IV PRN (06:08)
--- NOTE | 2021-09-12 10:46 | P.CNPUL ---
History of Present Illness Consult date: 09/12/21 Requesting physician: Brett Esparza Reason for consult: dyspnea, cough, hypoxemia, pneumonia, abnormal CXR/CT Chief complaint: Shortness of breath and cough. History of present illness: Pulmonary consult dated 09/12/2021. 71-year-old male who apparently is been sick for more than a month. He ap parently tested positive for coronavirus on September 11. His complaints include weakness, fatigue, and shortness of breath. He came into the emergency room on September 12 complaining of weakness and difficulty in breathing. Currently, the patient's on 5 L nasal cannula. He is not on any IV fluids. His primary care physician is Dr. Watts. The patient is on vaccinated. There was no evidence of pulmonary embolism. He has a history of COPD, diabetes, CVA, hyperlipidemia, hypertension, and myocardial infarction. White count 8.6, hemoglobin 12.2, hematocrit 34.3, platelet count 342,000. PT, INR, PTT are all normal. Sodium 126, potassium 4.5, chlorides 96, CO2 23, anion gap 7, BUN 43, creatinine 1.17. Coronavirus testing was positive on the . Chest x-ray showed diffuse bilateral patchy mostly lower lobe infiltrates. Based on his history, we thought he was a candidate only for Lovenox, Decadron, vitamin C, vitamin D3, and zinc. Review of Systems REVIEW OF SYSTEMS: CONSTITUTIONAL: Weakness and fatigue. NEUROLOGIC: [ Negative.] HEENT: [ Negative.] CARDIAC: [Negative.] PULMONARY: Shortness of breath and cough. GI: [Negative.] : [Negative.] RHEUMATOLOGIC: [ Negative.] IMMUNOLOGIC: [ Negative.] ENDOCRINE: [Negative. ] DERMATOLOGIC: [Negative.] Past Medical History Past Medical History: COPD, CVA/TIA, Diabetes Mellitus, Hyperlipidemia, Hypertension, Memory Impairment, Myocardial Infarction ([place]) Additional Past Medical History / Comment(s): TIA LONG TIME AGO; Heart Murmur. MILD MEMORY IMPAIRMENT. VENTRAL HERNIA CURRENTLY. Last Myocardial Infarction Date:: 01/16/18 History of Any Multi-Drug Resistant Organisms: None Reported Past Surgical History: Adenoidectomy, Heart Catheterization, Hernia Repair, Tonsillectomy Additional Past Surgical History / Comment(s): RT INGUINAL X4, SEPARATE SX, EXC TESTICLE. Past Anesthesia/Blood Transfusion Reactions: Motion Sickness, Postoperative Nausea & Vomiting (PONV) Past Psychological History: No Psychological Hx Reported Past Alcohol Use History: None Reported Additional Past Alcohol Use History / Comment(s): STARTED SMOKING AT AGE 20-22 Past Drug Use History: None Reported - Past Family History Father Family Medical History: CVA/TIA, Myocardial Infarction ([place]) Additional Family Medical History / Comment(s): AT AGE 74 FROM [place] Mother Family Medical History: Diabetes Mellitus Additional Family Medical History / Comment(s): AT AGE 55 COMPLICATIONS FROM DIABETES Medications and Allergies Home Medications Medication Instructions Recorded Confirmed Type Losartan [Cozaar] 50 mg PO BID 01/16/18 09/12/21 History Pravastatin Sodium [Pravachol] 40 mg PO HS 01/16/18 09/12/21 History amLODIPine [Norvasc] 10 mg PO HS 01/16/18 09/12/21 History metFORMIN HCL [Glucophage] 1,000 mg PO W/SUPPER 01/16/18 09/12/21 History Aspirin 81 mg PO DAILY #30 chew 01/19/18 09/12/21 Rx Nitroglycerin Sl Tabs [Nitrostat] 0.4 mg SUBLINGUAL Q5M PRN #25 tab 01/19/18 09/12/21 Rx Pantoprazole [Protonix] 40 mg PO DAILY 11/18/18 09/12/21 History Triamterene-Hctz 37.5-25Mg 1 cap PO DAILY 11/18/18 09/12/21 History [Dyazide 37.5-25 Capsule] Albuterol Inhaler [Ventolin Hfa 2 puff INHALATION RT-Q4H PRN 09/12/21 09/12/21 History Inhaler] Ascorbic Acid [Vitamin C] 500 mg PO DAILY 09/12/21 09/12/21 History Carvedilol [Coreg] 12.5 mg PO BID 09/12/21 09/12/21 History Cholecalciferol [Vitamin D3 (25 25 mcg PO DAILY 09/12/21 09/12/21 History Mcg = 1000 Iu)] metFORMIN HCL [Glucophage] 500 mg PO AC-BRKFST 09/12/21 09/12/21 History Allergies Allergy/AdvReac Type Severity Reaction Status Date / Time orphenadrine citrate Allergy Rash/Hives Verified 09/12/21 08:05 [From Norflex] Physical Exam Osteopathic Statement: *. No significant issues noted on an osteopathic structural exam other than those noted in the History and Physical/Consult. Vitals: Vital Signs Temp Pulse Resp BP Pulse Ox 09/12/21 06:30 98.0 F 74 20 111/69 95 09/12/21 04:37 98.8 F 81 24 135/70 90 L Intake and Output 09/11/21 09/12/21 09/12/21 22:59 06:59 14:59 Other: Weight 97.976 kg No acute distress, oriented 3. No conversational dyspnea or use of accessory muscles. The patient's on 5 L nasal cannula. HEENT examination is grossly unremarkable. Neck supple. Full range of motion. No adenopathy thyromegaly or neck vein distention. Cardiovascular examination reveals regular rhythm rate. S1-S2 normal. No S3 or S4. No discernible murmur noted. Heart rate 74 bpm. Lungs reveal bilateral rhonchi. No wheezes. Mild basilar crackles noted. Breath sounds are equal bilaterally. Saturations are 95% on 5 L nasal cannula. Abdomen soft bowel sounds are heard. No masses or tenderness. Extremities are intact. No cyanosis clubbing or edema. Skin is without rash or lesion. Neurologic examination is brief but nonfocal. Results - Laboratory Findings CBC and BMP: 09/12/21 04:56 09/12/21 04:56 PT/INR, D-dimer PT 9.9 sec (9.0-12.0) 09/12/21 04:56 INR 0.9 (<1.2) 09/12/21 04:56 Abnormal lab findings: Abnormal Labs 09/12/21 09/12/21 09/12/21 04:56 04:56 04:57 RBC 3.98 L Hgb 12.2 L Hct 34.3 L Sodium 126 L Chloride 96 L BUN 43 H Glucose 153 H C-Reactive Protein 7.3 H Coronavirus (PCR) Detected A - Diagnostic Findings Chest x-ray: image reviewed Assessment and Plan Assessment: Acute hypoxemic respiratory failure secondary to coronavirus associated pn eum[place]. History of prior CVA. History of COPD from prior tobacco history. History of diabetes mellitus. History of hypertension. History of hyperlipidemia. Prior history of myocardial infarction. Plan: Plan dated 09/12/2021. The patient has been sick for over a month. He tested positive for coronavirus on September 12. The patient has a history of multiple medical problems as listed including hypertension, hyperlipidemia, diabetes, and stroke. The patient also has a previous history of myocardial infarction. The patient 71 years of age. He was a heavy smoker in the past. The patient's at high risk for deterioration. The patient is only a candidate at this time for Lovenox, Decadron, admit see, vitamin D3, and zinc. The patient is seen in the emergency room, room 27. We will continue to follow and make recommendations where appropriate. Prognosis is very guarded. Time with Patient: Greater than 30
[2021-09-12] MEDS: DEXAMETHASONE SOD PHOSPHATE 10 MG/ML 1 ML VIAL IVP SCH (11:40)
[2021-09-12] MEDS: ZINC SULFATE 220 MG CAP PO SCH (11:40)
[2021-09-12] MEDS: CHOLECALCIFEROL 25 MCG (1000 IU) TABLET PO SCH (11:40)
[2021-09-12] MEDS: ASCORBIC ACID 500 MG TAB PO SCH ×2 (11:40→22:20)
[2021-09-12] MEDS: SODIUM CHLORIDE 0.9% 1,000 ML IV SCH ×3 (11:41→22:17)
[2021-09-12] MEDS: ENOXAPARIN 40 MG/0.4 ML SYRINGE SQ SCH (11:41)
[2021-09-12] MEDS ORDERED: NITROGLYCERIN SL TABS 0.4 MG TAB SUBLINGUAL PRN (12:49)
[2021-09-12] MEDS ORDERED: ALBUTEROL NEBULIZED 2.5 MG/3 ML INHALATION PRN (12:49)
--- NOTE | 2021-09-12 14:17 | P.HPIM ---
History of Present Illness H&P Date: 09/12/21 George Kang, is a 71 year old male who presented to [facility] emergency room with a chief complaint of shortness of breath and generalized weakness, symptoms started about 1 month ago per patient and has been worsening. He was evaluated in the emergency room vital examination on presentation revealed a temperature of 98.8 pulse 81 respiration 24 blood pressure 135/70 pulse ox 90% on room air Laboratory data revealed a white blood count of 8.6 hemoglobin 12.2 platelet count 342 sodium 126 potassium 4.5 chloride 96 CO2 23 BUN 43 creatinine 1.17 coronavirus PCR was positive Testing in the emergency room revealed chest x-ray done in the emergency room revealed new infiltrates at the lung bases Patient was admitted to medical floor for further evaluation and treatment, p monary consultation was requested Past Medical History Past Medical History: COPD, CVA/TIA, Diabetes Mellitus, Hyperlipidemia, Hypertension, Memory Impairment, Myocardial Infarction ([place]) Additional Past Medical History / Comment(s): TIA LONG TIME AGO; Heart Murmur. MILD MEMORY IMPAIRMENT. VENTRAL HERNIA CURRENTLY. Last Myocardial Infarction Date:: 01/16/18 History of Any Multi-Drug Resistant Organisms: None Reported Past Surgical History: Adenoidectomy, Heart Catheterization, Hernia Repair, Tonsillectomy Additional Past Surgical History / Comment(s): RT INGUINAL X4, SEPARATE SX, EXC TESTICLE. Past Anesthesia/Blood Transfusion Reactions: Motion Sickness, Postoperative Nausea & Vomiting (PONV) Past Psychological History: No Psychological Hx Reported Past Alcohol Use History: None Reported Additional Past Alcohol Use History / Comment(s): STARTED SMOKING AT AGE 20-21 Past Drug Use History: None Reported - Past Family History Father Family Medical History: CVA/TIA, Myocardial Infarction ([place]) Additional Family Medical History / Comment(s): AT AGE 74 FROM [place] Mother Family Medical History: Diabetes Mellitus Additional Family Medical History / Comment(s): AT AGE 55 COMPLICATIONS FROM DIABETES Medications and Allergies Home Medications Medication Instructions Recorded Confirmed Type Losartan [Cozaar] 50 mg PO BID 01/16/18 09/12/21 History Pravastatin Sodium [Pravachol] 40 mg PO HS 01/16/18 09/12/21 History amLODIPine [Norvasc] 10 mg PO HS 01/16/18 09/12/21 History metFORMIN HCL [Glucophage] 1,000 mg PO W/SUPPER 01/16/18 09/12/21 History Aspirin 81 mg PO DAILY #30 chew 01/19/18 09/12/21 Rx Nitroglycerin Sl Tabs [Nitrostat] 0.4 mg SUBLINGUAL Q5M PRN #25 tab 01/19/18 09/12/21 Rx Pantoprazole [Protonix] 40 mg PO DAILY 11/18/18 09/12/21 History Triamterene-Hctz 37.5-25Mg 1 cap PO DAILY 11/18/18 09/12/21 History [Dyazide 37.5-25 Capsule] Albuterol Inhaler [Ventolin Hfa 2 puff INHALATION RT-Q4H PRN 09/12/21 09/12/21 History Inhaler] Ascorbic Acid [Vitamin C] 500 mg PO DAILY 09/12/21 09/12/21 History Carvedilol [Coreg] 12.5 mg PO BID 09/12/21 09/12/21 History Cholecalciferol [Vitamin D3 (25 25 mcg PO DAILY 09/12/21 09/12/21 History Mcg = 1000 Iu)] metFORMIN HCL [Glucophage] 500 mg PO AC-BRKFST 09/12/21 09/12/21 History Allergies Allergy/AdvReac Type Severity Reaction Status Date / Time orphenadrine citrate Allergy Rash/Hives Verified 09/12/21 08:05 [From Norflex] Physical Exam Vitals: Vital Signs Temp Pulse Resp BP Pulse Ox 09/12/21 06:30 98.0 F 74 20 111/69 95 09/12/21 04:37 98.8 F 81 24 135/70 90 L Intake and Output 09/11/21 09/12/21 09/12/21 22:59 06:59 14:59 Other: Weight 97.976 kg In general patient is alert and oriented x 3 in no distress HEENT head normocephalic and atraumatic Neck is supple no JVD no goiter no lymphadenopathy no carotid bruit Chest examination reveals a scattered crackles in both lung loza no wheezing Cardiac exam reveals regular heart sounds S1 and S2 no gallops no murmurs Abdomen is soft nontender no organomegaly with normal bowel sounds Extremity exam reveals no edema no cyanosis or clubbing Neurological examination reveals no gross focal deficits Results CBC & Chem 7: 09/12/21 04:56 09/12/21 04:56 Labs: Abnormal Lab Results - Last 24 Hours (Table) 09/12/21 09/12/21 09/12/21 Range/Units 04:56 04:56 04:57 RBC 3.98 L (4.30-5.90) m/uL Hgb 12.2 L (13.0-17.5) gm/dL Hct 34.3 L (39.0-53.0) % Sodium 126 L (137-145) mmol/L Chloride 96 L (98-107) mmol/L BUN 43 H (9-20) mg/dL Glucose 153 H (74-99) mg/dL C-Reactive Protein 7.3 H (<1.0) mg/dL Coronavirus (PCR) Detected A (Not Detectd) Assessment and Plan Plan: COVID-19 pneumonia Acute hypoxic respiratory failure Underlying history of hypertension Underlying history of hyperlipidemia Previous history of coronary artery disease with history of myocardial infarction in the past Underlying history of COPD Prior history of CVA At this time patient is admitted to medical floor he was started on IV dexa methasone, subcu Lovenox, vitamin D vitamin C and zinc supplements Patient was also started on oxygen therapy currently he is on 5 L nasal cannula Pulmonary consultation was requested Will follow closely
[2021-09-12 15:20] LABS: Appearance,Urine Clear (Clear); Bilirubin,Urine Negative (Negative); Blood,Urine Negative (Negative); Color,Urine Yellow; Glucose,Urine (UA) 4+ (Negative); Ketones,Urine Negative (Negative); Leukocyte Esterase,Urine Negative (Negative); Nitrite,Urine Negative (Negative); PH, Urine 5.5 (5.0-8.0); Protein,Urine Negative (Negative); Specific Gravity,Urine 1.021 (1.001-1.035); Urobilinogen,Urine <2.0 mg/dL (<2.0)
[2021-09-12] MEDS: metFORMIN 500 MG TAB PO SCH (16:39)
[2021-09-12] MEDS: carvediloL 12.5 MG TAB PO SCH (16:39)
[2021-09-12] MEDS: PANTOPRAZOLE 40 MG TABLET PO SCH (16:39)
[2021-09-12] MEDS: amLODIPine 10 MG TAB PO SCH (22:20)
[2021-09-12] MEDS: PRAVASTATIN SODIUM 40 MG TAB PO SCH (22:20)
[2021-09-12] MEDS: LOSARTAN 50 MG TAB PO SCH (22:21)
[2021-09-13] MEDS: SODIUM CHLORIDE 0.9% 1,000 ML IV SCH ×3 (05:57→21:09)
[2021-09-13] MEDS: ASPIRIN 81 MG PO SCH (07:52)
[2021-09-13] MEDS: carvediloL 12.5 MG TAB PO SCH ×2 (07:52→17:46)
[2021-09-13] MEDS: metFORMIN 500 MG TAB PO SCH ×2 (07:52→17:45)
[2021-09-13] MEDS: DEXAMETHASONE SOD PHOSPHATE 10 MG/ML 1 ML VIAL IVP SCH (07:53)
[2021-09-13] MEDS: ASCORBIC ACID 500 MG TAB PO SCH ×2 (07:53→21:08)
[2021-09-13] MEDS: CHOLECALCIFEROL 25 MCG (1000 IU) TABLET PO SCH ×2 (07:53→09:40)
[2021-09-13] MEDS: LOSARTAN 50 MG TAB PO SCH ×2 (07:53→21:08)
[2021-09-13] MEDS: PANTOPRAZOLE 40 MG TABLET PO SCH (07:53)
[2021-09-13] MEDS: ENOXAPARIN 40 MG/0.4 ML SYRINGE SQ SCH (07:54)
[2021-09-13 08:48] LABS: Basophils % (A) 0 %; Eosinophils % (A) 0 %; HCT 31.5 % (39.0-53.0); HGB 10.5 gm/dL (13.0-17.5); Lymphocytes # (A) 0.8 k/uL (1.0-4.8); Lymphocytes % (A) 6 %; MCH 29.9 pg (25.0-35.0); MCHC 33.3 g/dL (31.0-37.0); MCV 89.9 fL (80.0-100.0); Mean Platelet Volume 7.5; Monocytes # (A) 0.5 k/uL (0-1.0); Monocytes % (A) 4 %; Neutrophils # (A) 11.9 k/uL (1.3-7.7); Neutrophils % (A) 89 %; Platelet Count 307 k/uL (150-450); RDW 12.8 % (11.5-15.5); WBC 13.3 k/uL (3.8-10.6)
[2021-09-13] MEDS ORDERED: ASCORBIC ACID 500 MG TAB PO SCH (09:00)
[2021-09-13 09:13] LABS: ALT 10 U/L (4-49); AST 15 U/L (17-59); African American GFR (CKD) 69 (>60 ml/min/1.73 sqM); Albumin 2.8 g/dL (3.5-5.0); Albumin/Globulin Ratio 0.9; Alkaline Phosphatase 45 U/L (38-126); Anion Gap 8 mmol/L; Blood Urea Nitrogen 39 mg/dL (9-20); Calcium 9.1 mg/dL (8.4-10.2); Carbon Dioxide 19 mmol/L (22-30); Chloride 105 mmol/L (98-107); Glucose 187 mg/dL (74-99); Magnesium 1.8 mg/dL (1.6-2.3); Non-African American GFR(CKD) 60 (>60 ml/min/1.73 sqM); Phosphorus 3.1 mg/dL (2.5-4.5); Potassium 4.7 mmol/L (3.5-5.1); Sodium 132 mmol/L (137-145); Total Bilirubin 0.3 mg/dL (0.2-1.3); Total Protein 5.8 g/dL (6.3-8.2)
[2021-09-13] MEDS: ZINC SULFATE 220 MG CAP PO SCH (09:39)
--- NOTE | 2021-09-13 14:18 | P.PN ---
Subjective Progress Note Date: 09/13/21 George Kang, is a 71 year old male who presented to [facility] emergency room with a chief complaint of shortness of breath and generalized weakness, symptoms started about 1 month ago per patient and has been worsening. He was evaluated in the emergency room vital examination on presentation revealed a temperature of 98.8 pulse 81 respiration 24 blood pressure 135/70 pulse ox 90% on room air Laboratory data revealed a white blood count of 8.6 hemoglobin 12.2 platelet count 342 sodium 126 potassium 4.5 chloride 96 CO2 23 BUN 43 creatinine 1.17 coronavirus PCR was positive Testing in the emergency room revealed chest x-ray done in the emergency room revealed new infiltrates at the lung bases Patient was admitted to medical floor for further evaluation and treatment, pulmonary consultation was requested On 09/13/2021 patient was seen and examined on the medical floor he is alert and oriented 3 in no apparent distress he is still complaining of cough and shortness of breath otherwise he denies any complaints there is no fever or chills no headache or dizziness no chest pain no nausea or vomiting no abdominal pain no diarrhea stools no burning with urination no frequency or urgency and no hematuria Objective - Vital Signs Vital signs: Vital Signs Temp 97.9 F 09/13/21 07:44 Pulse 74 09/13/21 07:44 Resp 18 09/13/21 07:44 BP 113/74 09/13/21 07:44 Pulse Ox 97 09/13/21 07:44 Intake & Output 09/12/21 09/13/21 09/13/21 18:59 06:59 18:59 Intake Total 600 390 Balance 600 390 Weight 97.976 kg Intake: Intake, IV Titration 390 Amount Sodium Chloride 0.9% 1, 390 000 ml @ 130 mls/hr IV . Q7H42M [facility] Rx#:[id number] Oral 600 0 Other: Voiding Method Urinal # Voids 4 1 - Exam In general patient is alert and oriented x 3 in no distress HEENT head normocephalic and atraumatic Neck is supple no JVD no goiter no lymphadenopathy no carotid bruit Chest examination reveals a scattered crackles in both lung loza no wheezing Cardiac exam reveals regular heart sounds S1 and S2 no gallops no murmurs Abdomen is soft nontender no organomegaly with normal bowel sounds Extremity exam reveals no edema no cyanosis or clubbing Neurological examination reveals no gross focal deficits - Labs CBC & Chem 7: 09/13/21 07:44 09/13/21 07:44 Labs: Abnormal Lab Results - Last 24 Hours (Table) 09/12/21 09/12/21 Range/Units 13:13 14:35 D-Dimer 0.66 H (<0.60) mg/L FEU Urine Glucose (UA) 4+ H (Negative) Assessment and Plan Plan: COVID-19 pneumonia Acute hypoxic respiratory failure Underlying history of hypertension Underlying history of hyperlipidemia Previous history of coronary artery disease with history of myocardial infarction in the past Underlying history of COPD Prior history of CVA At this time patient is admitted to medical floor he was started on IV dexamethasone, subcu Lovenox, vitamin D vitamin C and zinc supplements Patient was also started on oxygen therapy currently he is on 5 L nasal cannula Pulmonary consultation was requested Will follow closely
[2021-09-13] MEDS: ALBUTEROL HFA INHALER INHALATION PRN ×2 (16:00→20:46)
--- NOTE | 2021-09-13 18:34 | P.PN ---
Subjective Progress Note Date: 09/13/21 71-year-old male who apparently is been sick for more than a month. He apparently tested positive for coronavirus on September 11. His complaints include weakness, fatigue, and shortness of breath. He came into the emergency room on September 12 complaining of weakness and difficulty in breathing. Adelaidae sheldonly, the patient's on 5 L nasal cannula. He is not on any IV fluids. His primary care physician is Dr. Watts. The patient is on vaccinated. There was no evidence of pulmonary embolism. He has a history of COPD, diabetes, CVA, hyperlipidemia, hypertension, and myocardial infarction. White count 8.6, hemoglobin 12.2, hematocrit 34.3, platelet count 342,000. PT, INR, PTT are all normal. Sodium 126, potassium 4.5, chlorides 96, CO2 23, anion gap 7, BUN 43, creatinine 1.17. Coronavirus testing was positive on the . Chest x-ray showed diffuse bilateral patchy mostly lower lobe infiltrates. Based on his history, we thought he was a candidate only for Lovenox, Decadron, vitamin C, vitamin D3, and zinc. The patient is seen today 09/13/2021 in follow-up on the regular medical floor. He is sitting up at the bedside. Awake and alert in no acute distress. He is maintaining O2 saturations in the 90s on 4 L nasal cannula. Feeling a bit better today compared to yesterday. 0.9 normal saline at 130 ML's per hour. White count 13.3. Hemoglobin 10.5. Lymphocytes 0.8. Sodium 132. Potassium 4.7. Creatinine 1.22. AST 15. ALT 10. He is continued on Decadron, Lovenox, vitamin supplements. Objective - Vital Signs Vital signs: Vital Signs Temp 98.2 F 09/13/21 14:00 Pulse 80 09/13/21 14:00 Resp 17 09/13/21 14:00 BP 137/73 09/13/21 14:00 Pulse Ox 95 09/13/21 14:00 Intake & Output 09/12/21 09/13/21 09/13/21 18:59 06:59 18:59 Intake Total 600 390 358 Balance 600 390 358 Weight 97.976 kg Intake: Intake, IV Titration 390 Amount Sodium Chloride 0.9% 1, 390 000 ml @ 130 mls/hr IV . Q7H42M [facility] Rx#:[id number] Oral 600 0 358 Other: Voiding Method Urinal # Voids 4 1 3 # Bowel Movements 1 - Exam GENERAL EXAM: Alert, pleasant 71-year-old gentleman, on 4 L nasal cannula, co mfortable in no apparent distress. HEAD: Normocephalic. EYES: Normal reaction of pupils, equal size. NOSE: Clear with pink turbinates. THROAT: No erythema or exudates. NECK: No masses, no JVD. CHEST: No chest wall deformity. LUNGS: Equal air entry with crackles in the bilateral bases. CVS: S1 and S2 normal with no audible murmur, regular rhythm. ABDOMEN: No hepatosplenomegaly, normal bowel sounds, no guarding or rigidity. SPINE: No scoliosis or deformity SKIN: No rashes CENTRAL NERVOUS SYSTEM: No focal deficits, tone is normal in all 4 extremities. EXTREMITIES: There is no peripheral edema. No clubbing, no cyanosis. Peripheral pulses are intact. - Labs CBC & Chem 7: 09/13/21 07:44 09/13/21 07:44 Labs: Abnormal Lab Results - Last 24 Hours (Table) 09/13/21 09/13/21 Range/Units 07:44 07:44 WBC 13.3 H (3.8-10.6) k/uL RBC 3.50 L (4.30-5.90) m/uL Hgb 10.5 L (13.0-17.5) gm/dL Hct 31.5 L (39.0-53.0) % Neutrophils # 11.9 H (1.3-7.7) k/uL Lymphocytes # 0.8 L (1.0-4.8) k/uL Sodium 132 L (137-145) mmol/L Carbon Dioxide 19 L (22-30) mmol/L BUN 39 H (9-20) mg/dL Glucose 187 H (74-99) mg/dL AST 15 L (17-59) U/L Total Protein 5.8 L (6.3-8.2) g/dL Albumin 2.8 L (3.5-5.0) g/dL Assessment and Plan Assessment: 1 Acute hypoxic respiratory failure secondary to chronic COVID-19 pneumonia not vaccinated. Symptoms greater than 7 days. Not a candidate for Remdesivir. 2 Diabetes mellitus 3 Coronary disease 4 Hypertension 5 Chronic obstructive pulmonary disease 6 History of tobacco dependence Plan: The patient was seen and evaluated by Dr. Underwood Continue Decadron, Lovenox, vitamin supplements Titrate the FiO2 as tolerated Follow-up chest x-ray and labs in the a.m. We will continue to follow and make further recommendations based on his clinical status I, the cosigning physician, performed a history & physical examination of the patient. Lungs sounds are coarse crackles in bilateral bases. Maintaining good O2 saturations in the 90s on 4 L/m per nasal cannula. I discussed the assessment and plan of care with my nurse practitioner, Deonna Delvalle. I attest to the above note as dictated by her.
[2021-09-13] MEDS: amLODIPine 10 MG TAB PO SCH (21:08)
[2021-09-13] MEDS: PRAVASTATIN SODIUM 40 MG TAB PO SCH (21:08)
[2021-09-14] MEDS: SODIUM CHLORIDE 0.9% 1,000 ML IV SCH ×4 (04:43→19:57)
[2021-09-14 08:06] LABS: Glucose,Whole Blood 131 mg/dL (75-99)
--- NOTE | 2021-09-14 08:07 | XR ---
EXAMINATION TYPE: XR chest 1V portable DATE OF EXAM: 09/14/2021 CLINICAL HISTORY: Difficulty breathing and covid pneumonia progress study. TECHNIQUE: Single AP portable upright view of the chest is obtained. COMPARISON: Chest x-ray from 2 days earlier FINDINGS: Bilateral multifocal increased opacities redemonstrated on background somewhat low lung vo lumes. Stable cardiomegaly with ectatic thoracic aorta. Osseous structures are intact. IMPRESSION: Mild cardiomegaly and Low lung volumes with bilateral multifocal opacities consistent wit h known covid-19 infection, no significant change from most recent x-ray.
[2021-09-14] MEDS: DEXAMETHASONE SOD PHOSPHATE 10 MG/ML 1 ML VIAL IVP SCH (08:22)
[2021-09-14] MEDS: ENOXAPARIN 40 MG/0.4 ML SYRINGE SQ SCH (08:22)
[2021-09-14] MEDS: metFORMIN 500 MG TAB PO SCH ×2 (08:23→16:59)
[2021-09-14] MEDS: ASCORBIC ACID 500 MG TAB PO SCH ×2 (08:23→20:48)
[2021-09-14] MEDS: PANTOPRAZOLE 40 MG TABLET PO SCH (08:23)
[2021-09-14] MEDS: LOSARTAN 50 MG TAB PO SCH ×2 (08:23→20:48)
[2021-09-14] MEDS: CHOLECALCIFEROL 25 MCG (1000 IU) TABLET PO SCH ×2 (08:23)
[2021-09-14] MEDS: ASPIRIN 81 MG PO SCH (08:23)
[2021-09-14] MEDS: ZINC SULFATE 220 MG CAP PO SCH (08:24)
[2021-09-14] MEDS: carvediloL 12.5 MG TAB PO SCH ×2 (08:26→16:59)
[2021-09-14] MEDS: ALBUTEROL HFA INHALER INHALATION PRN ×4 (08:44→20:28)
[2021-09-14 12:26] LABS: Glucose,Whole Blood 185 mg/dL (75-99)
[2021-09-14 13:26] LABS: C Reactive Protein 2.1 mg/dL (0.00-0.80)
--- NOTE | 2021-09-14 16:12 | P.PN ---
Subjective Progress Note Date: 09/14/21 71-year-old male who apparently is been sick for more than a month. He apparently tested positive for coronavirus on September 11. His complaints include weakness, fatigue, and shortness of breath. He came into the emergency room on September 12 complaining of weakness and difficulty in breathing. Adelaidae sheldonly, the patient's on 5 L nasal cannula. He is not on any IV fluids. His primary care physician is Dr. Watts. The patient is on vaccinated. There was no evidence of pulmonary embolism. He has a history of COPD, diabetes, CVA, hyperlipidemia, hypertension, and myocardial infarction. White count 8.6, hemoglobin 12.2, hematocrit 34.3, platelet count 342,000. PT, INR, PTT are all normal. Sodium 126, potassium 4.5, chlorides 96, CO2 23, anion gap 7, BUN 43, creatinine 1.17. Coronavirus testing was positive on the . Chest x-ray showed diffuse bilateral patchy mostly lower lobe infiltrates. Based on his history, we thought he was a candidate only for Lovenox, Decadron, vitamin C, vitamin D3, and zinc. The patient is seen today 09/13/2021 in follow-up on the regular medical floor. He is sitting up at the bedside. Awake and alert in no acute distress. He is maintaining O2 saturations in the 90s on 4 L nasal cannula. Feeling a bit better today compared to yesterday. 0.9 normal saline at 130 ML's per hour. White count 13.3. Hemoglobin 10.5. Lymphocytes 0.8. Sodium 132. Potassium 4.7. Creatinine 1.22. AST 15. ALT 10. He is continued on Decadron, Lovenox, vitamin supplements. The patient is seen today 09/14/2021 in follow-up on the regular medical floor. He is awake and alert in no acute distress. Maintaining O2 saturations in the 90s on 5 L/m per nasal cannula. Chest x-ray reveals mild cardiomegaly and bilateral multifocal opacities consistent with COVID-19 infection. No significant change compared to previous. Afebrile. LDH 186. C-reactive prot ein 2.10. D-dimer 1.22. Blood glucose 185. He is continued on vitamin supplements, Decadron, Lovenox. Objective - Vital Signs Vital signs: Vital Signs Temp 98.5 F 09/14/21 14:00 Pulse 79 09/14/21 14:00 Resp 16 09/14/21 14:00 BP 135/66 09/14/21 14:00 Pulse Ox 94 L 09/14/21 14:00 Intake & Output 09/13/21 09/14/21 09/14/21 18:59 06:59 18:59 Intake Total 358 236 Balance 358 236 Intake: Oral 358 236 Other: Voiding Method Urinal # Voids 3 2 # Bowel Movements 1 - Exam GENERAL EXAM: Alert, pleasant 71-year-old gentleman, on 5 L nasal cannula, comfortable in no apparent distress. HEAD: Normocephalic. EYES: Normal reaction of pupils, equal size. NOSE: Clear with pink turbinates. THROAT: No erythema or exudates. NECK: No masses, no JVD. CHEST: No chest wall deformity. LUNGS: Equal air entry with crackles in the bilateral bases. CVS: S1 and S2 normal with no audible murmur, regular rhythm. ABDOMEN: No hepatosplenomegaly, normal bowel sounds, no guarding or rigidity. SPINE: No scoliosis or deformity SKIN: No rashes CENTRAL NERVOUS SYSTEM: No focal deficits, tone is normal in all 4 extremities. EXTREMITIES: There is no peripheral edema. No clubbing, no cyanosis. Peripheral pulses are intact. - Labs CBC & Chem 7: 09/13/21 07:44 09/13/21 07:44 Labs: Abnormal Lab Results - Last 24 Hours (Table) 09/14/21 09/14/21 09/14/21 Range/Units 07:17 07:17 08:04 D-Dimer 1.22 H (<0.60) mg/L FEU POC Glucose (mg/dL) 131 H (75-99) mg/dL C-Reactive Protein 2.10 H (0.00-0.80) mg/dL 09/14/21 Range/Units 12:25 D-Dimer (<0.60) mg/L FEU POC Glucose (mg/dL) 185 H (75-99) mg/dL C-Reactive Protein (0.00-0.80) mg/dL Assessment and Plan Assessment: 1 Acute hypoxic respiratory failure secondary to chronic COVID-19 pneumonia not vaccinated. Symptoms greater than 7 days. Not a candidate for Remdesivir. 2 Diabetes mellitus 3 Coronary disease 4 Hypertension 5 Chronic obstructive pulmonary disease 6 History of tobacco dependence Plan: The patient was seen and evaluated by Dr. Underwood Chest x-ray and labs reviewed Continue Decadron, Lovenox, vitamin supplements Titrate the FiO2 as tolerated We will continue to follow I, the cosigning physician, performed a history & physical examination of the patient. Lungs sounds are coarse crackles in bilateral bases. Maintaining good O2 saturations in the 90s on 5 L/m per nasal cannula. I discussed the assessment and plan of care with my nurse practitioner, Deonna Delvalle. I attest to the above note as dictated by her.
[2021-09-14 17:33] LABS: Glucose,Whole Blood 245 mg/dL (75-99)
[2021-09-14] MEDS: amLODIPine 10 MG TAB PO SCH (20:47)
[2021-09-14] MEDS: PRAVASTATIN SODIUM 40 MG TAB PO SCH (20:48)
[2021-09-14 20:51] LABS: Glucose,Whole Blood 184 mg/dL (75-99)
--- NOTE | 2021-09-14 21:37 | P.PN ---
Subjective George Kang, is a 71 year old male who presented to [facility] emergency room with a chief complaint of shortness of breath and generalized weakness, symptoms started about 1 month ago per patient and has been worsening. He was found to have bilateral colic pneumonia and hypoxia. His been treated with dexamethasone and multiple vitamins and oxygen. Currently he is on 4 L/m of oxygen with saturations in the 90s. D-dimer was slightly elevated 1.2, LDH actually is normal at 186, C-reactive protein mildly elevated at 2.1 while pro-calcitonin is 0.05 which is normal. Chest x-ray showing bilateral pneumonia. Objective - Vital Signs Vital signs: Vital Signs Temp 98.3 F 09/14/21 08:00 Pulse 67 09/14/21 08:00 Resp 17 09/14/21 08:00 BP 133/61 09/14/21 08:00 Pulse Ox 97 09/14/21 08:00 Intake & Output 09/13/21 09/14/21 09/14/21 18:59 06:59 18:59 Intake Total 358 118 Balance 358 118 Intake: Oral 358 118 Other: Voiding Method Urinal # Voids 3 2 # Bowel Movements 1 - Exam GENERAL: The patient is alert and oriented x3, not in any acute distress. Well developed, well nourished. HEENT: Pupils are round and equally reacting to light. EOMI. No scleral icterus. No conjunctival pallor. Normocephalic, atraumatic. No pharyngeal erythema. No thyromegaly. CARDIOVASCULAR: S1 and S2 present. No murmurs, rubs, or gallops. -PULMONARY: Chest is clear to auscultation, no wheezing or crackles. Bilateral crepitation ABDOMEN: Soft, nontender, nondistended, normoactive bowel sounds. No palpable organomegaly. MUSCULOSKELETAL: No joint swelling or deformity. EXTREMITIES: No cyanosis, clubbing, or pedal edema. NEUROLOGICAL: Gross neurological examination did not reveal any focal deficits. SKIN: No rashes. no petechiae. - Labs CBC & Chem 7: 09/13/21 07:44 09/13/21 07:44 Labs: Abnormal Lab Results - Last 24 Hours (Table) 09/14/21 09/14/21 09/14/21 Range/Units 07:17 07:17 08:04 D-Dimer 1.22 H (<0.60) mg/L FEU POC Glucose (mg/dL) 131 H (75-99) mg/dL C-Reactive Protein 2.10 H (0.00-0.80) mg/dL 09/14/21 Range/Units 12:25 D-Dimer (<0.60) mg/L FEU POC Glucose (mg/dL) 185 H (75-99) mg/dL C-Reactive Protein (0.00-0.80) mg/dL Assessment and Plan Assessment: Bilateral Covid pneumonia Acute hypoxic respiratory failure Increased inflammatory markers Obesity with BMI 31.0 Plan: This is a pleasant 71 years old male who presents with bilateral covid pneumonia Continue with dexamethasone Continue with vitamin C, vitamin D and zinc Pulmonary consult Labs and medication were reviewed.. Continue same treatment. Continue with symptomatic treatment. Resume home medication. Monitor lytes and vitals. DVT and GI prophylaxis. Further recommendations depends on the clinical course of the patient DVT prophylaxis: Subcutaneous Lovenox GI Prophylaxis: Pepcid
[2021-09-15] MEDS: SODIUM CHLORIDE 0.9% 1,000 ML IV SCH ×3 (03:08→17:07)
[2021-09-15] MEDS: ASPIRIN 81 MG PO SCH (08:12)
[2021-09-15] MEDS: PANTOPRAZOLE 40 MG TABLET PO SCH (08:12)
[2021-09-15] MEDS: ZINC SULFATE 220 MG CAP PO SCH (08:12)
[2021-09-15] MEDS: metFORMIN 500 MG TAB PO SCH ×2 (08:12→17:08)
[2021-09-15] MEDS: LOSARTAN 50 MG TAB PO SCH ×2 (08:12→21:38)
[2021-09-15] MEDS: ENOXAPARIN 40 MG/0.4 ML SYRINGE SQ SCH (08:12)
[2021-09-15] MEDS: DEXAMETHASONE SOD PHOSPHATE 10 MG/ML 1 ML VIAL IVP SCH (08:12)
[2021-09-15] MEDS: ASCORBIC ACID 500 MG TAB PO SCH ×2 (08:12→21:38)
[2021-09-15] MEDS: carvediloL 12.5 MG TAB PO SCH ×2 (08:12→17:08)
[2021-09-15 08:14] LABS: Glucose,Whole Blood 120 mg/dL (75-99)
[2021-09-15] MEDS: CHOLECALCIFEROL 25 MCG (1000 IU) TABLET PO SCH ×2 (08:16)
[2021-09-15 12:37] LABS: Glucose,Whole Blood 183 mg/dL (75-99)
[2021-09-15] MEDS: ALBUTEROL HFA INHALER INHALATION PRN ×3 (12:42→20:55)
--- NOTE | 2021-09-15 16:42 | P.PN ---
Subjective Progress Note Date: 09/15/21 Principal diagnosis: CoVID 19 pneumonia 71-year-old male who apparently is been sick for more than a month. He apparently tested positive for coronavirus on September 11. His complaints include weakness, fatigue, and shortness of breath. He came into the emergency room on September 12 complaining of weakness and difficulty in breathing. Currently, the patient's on 5 L nasal cannula. He is not on any IV fluids. His primary care physician is Dr. Watts. The patient is on vaccinated. There was no evidence of pulmonary embolism. He has a history of COPD, diabetes, CVA, hyperlipidemia, hypertension, and myocardial infarction. White count 8.6, hemoglobin 12.2, hematocrit 34.3, platelet count 342,000. PT, INR, PTT are all normal. Sodium 126, potassium 4.5, chlorides 96, CO2 23, anion gap 7, BUN 43, creatinine 1.17. Coronavirus testing was positive on the . Chest x-ray showed diffuse bilateral patchy mostly lower lobe infiltrates. Based on his history, we thought he was a candidate only for Lovenox, Decadron, vitamin C, vitamin D3, and zinc. The patient is seen today 09/13/2021 in follow-up on the regular medical floor. He is sitting up at the bedside. Awake and alert in no acute distress. He is maintaining O2 saturations in the 90s on 4 L nasal cannula. Feeling a bit better today compared to yesterday. 0.9 normal saline at 130 ML's per hour. White count 13.3. Hemoglobin 10.5. Lymphocytes 0.8. Sodium 132. Potassium 4.7. Creatinine 1.22. AST 15. ALT 10. He is continued on Decadron, Lovenox, vitamin supplements. The patient is seen today 09/14/2021 in follow-up on the regular medical floor. He is awake and alert in no acute distress. Maintaining O2 saturations in the 90s on 5 L/m per nasal cannula. Chest x-ray reveals mild cardiomegaly and bilateral multifocal opacities consistent with COVID-19 infection. No significant change compared to previous. Afebrile. LDH 186. C-reactive protein 2.10. D-dimer 1.22. Blood glucose 185. He is continued on vitamin supplements, Decadron, Lovenox. The patient is seen today 09/15/2021 in follow-up on the regular medical floor. Currently sitting up in a chair at the bedside. Awake and alert in no acute distress. Doing a bit better today compared to yesterday. He is currently maintaining O2 saturations in the 90s on 3 L/m per nasal cannula. Blood glucose 183. He is continued on Decadron, Lovenox, vitamin supplements. Objective - Vital Signs Vital signs: Vital Signs Temp 98.2 F 09/15/21 14:00 Pulse 67 09/15/21 14:00 Resp 17 09/15/21 14:00 BP 126/72 09/15/21 14:00 Pulse Ox 97 09/15/21 14:00 Intake & Output 09/14/21 09/15/21 09/15/21 18:59 06:59 18:59 Intake Total 236 Balance 236 Intake: Oral 236 Other: Voiding Method Toilet Toilet Urinal Urinal # Voids 1 - Exam GENERAL EXAM: Alert, pleasant 71-year-old gentleman, on 3 L nasal cannula, comfortable in no apparent distress. HEAD: Normocephalic. EYES: Normal reaction of pupils, equal size. NOSE: Clear with pink turbinates. THROAT: No erythema or exudates. NECK: No masses, no JVD. CHEST: No chest wall deformity. LUNGS: Equal air entry with crackles in the bilateral bases. CVS: S1 and S2 normal with no audible murmur, regular rhythm. ABDOMEN: No hepatosplenomegaly, normal bowel sounds, no guarding or rigidity. SPINE: No scoliosis or deformity SKIN: No rashes CENTRAL NERVOUS SYSTEM: No focal deficits, tone is normal in all 4 extremities. EXTREMITIES: There is no peripheral edema. No clubbing, no cyanosis. Peripheral pulses are intact. - Labs CBC & Chem 7: 09/13/21 07:44 09/13/21 07:44 Labs: Abnormal Lab Results - Last 24 Hours (Table) 09/14/21 09/14/21 09/15/21 Range/Units 17:32 20:50 08:12 POC Glucose (mg/dL) 245 H 184 H 120 H (75-99) mg/dL 09/15/21 Range/Units 12:36 POC Glucose (mg/dL) 183 H (75-99) mg/dL Assessment and Plan Assessment: 1 Acute hypoxic respiratory failure secondary to chronic COVID-19 pneumonia not vaccinated. Symptoms greater than 7 days. Not a candidate for Remdesivir. 2 Diabetes mellitus 3 Coronary disease 4 Hypertension 5 Chronic obstructive pulmonary disease 6 History of tobacco dependence Plan: The patient was seen and evaluated by Dr. Underwood Currently down to 3 L of oxygen Continue Decadron, Lovenox, vitamin supplements Titrate the FiO2 as tolerated Follow up CXR and labs in the a.m. Probable home in the a.m. We will continue to follow I, the cosigning physician, performed a history & physical examination of the pa michael. Lungs sounds are coarse crackles in bilateral bases. Maintaining good O2 saturations in the 90s on 3 L/m per nasal cannula. I discussed the assessment and plan of care with my nurse practitioner, Deonna Delvalle. I attest to the above note as dictated by her.
[2021-09-15 17:27] LABS: Glucose,Whole Blood 254 mg/dL (75-99)
[2021-09-15 20:05] LABS: Glucose,Whole Blood 281 mg/dL (75-99)
[2021-09-15] MEDS: PRAVASTATIN SODIUM 40 MG TAB PO SCH (21:38)
[2021-09-15] MEDS: amLODIPine 10 MG TAB PO SCH (21:38)
--- NOTE | 2021-09-15 21:58 | P.PN ---
Subjective George Kang, is a 71 year old male who presented to [facility] emergency room with a chief complaint of shortness of breath and generalized weakness, symptoms started about 1 month ago per patient and has been worsening. He was found to have bilateral colic pneumonia and hypoxia. His been treated with dexamethasone and multiple vitamins and oxygen. Currently he is on 4 L/m of oxygen with saturations in the 90s. D-dimer was slightly elevated 1.2, LDH actually is normal at 186, C-reactive protein mildly elevated at 2.1 while pro-calcitonin is 0.05 which is normal. Chest x-ray showing bilateral pneumonia. 09/15/2021 Patient showing significant improvement, his oxygen requirements down to 2 L limited. No wheezing. Hemodynamically stable. He is on steroids and vitamins. Possible discharge in 24-48 hours he remained stable and keep improving Objective - Vital Signs Vital signs: Vital Signs Temp 97.7 F 09/15/21 08:00 Pulse 59 L 09/15/21 08:00 Resp 22 09/15/21 08:00 BP 131/74 09/15/21 08:00 Pulse Ox 97 09/15/21 08:00 Intake & Output 09/14/21 09/15/21 09/15/21 18:59 06:59 18:59 Intake Total 236 Balance 236 Intake: Oral 236 Other: Voiding Method Toilet Toilet Urinal Urinal # Voids 1 - Exam GENERAL: The patient is alert and oriented x3, not in any acute distress. Well developed, well nourished. HEENT: Pupils are round and equally reacting to light. EOMI. No scleral icterus. No conjunctival pallor. Normocephalic, atraumatic. No pharyngeal erythema. No thyromegaly. CARDIOVASCULAR: S1 and S2 present. No murmurs, rubs, or gallops. -PULMONARY: Chest is clear to auscultation, no wheezing or crackles. Bilateral crepitation ABDOMEN: Soft, nontender, nondistended, normoactive bowel sounds. No palpable organomegaly. MUSCULOSKELETAL: No joint swelling or deformity. EXTREMITIES: No cyanosis, clubbing, or pedal edema. NEUROLOGICAL: Gross neurological examination did not reveal any focal deficits. SKIN: No rashes. no petechiae. - Labs CBC & Chem 7: 09/13/21 07:44 09/13/21 07:44 Labs: Abnormal Lab Results - Last 24 Hours (Table) 09/14/21 09/14/21 09/14/21 Range/Units 07:17 17:32 20:50 POC Glucose (mg/dL) 245 H 184 H (75-99) mg/dL C-Reactive Protein 2.10 H (0.00-0.80) mg/dL 09/15/21 09/15/21 Range/Units 08:12 12:36 POC Glucose (mg/dL) 120 H 183 H (75-99) mg/dL C-Reactive Protein (0.00-0.80) mg/dL Assessment and Plan Assessment: Bilateral Covid pneumonia Acute hypoxic respiratory failure Increased inflammatory markers Obesity with BMI 31.0 Plan: This is a pleasant 71 years old male who presents with bilateral covid pneumonia Continue with dexamethasone Continue with vitamin C, vitamin D and zinc Pulmonary consult Labs and medication were reviewed.. Continue same treatment. Continue with symptomatic treatment. Resume home medication. Monitor lytes and vitals. DVT and GI prophylaxis. Further recommendations depends on the clinical course of the patient DVT prophylaxis: Subcutaneous Lovenox GI Prophylaxis: Pepcid
[2021-09-16] MEDS: SODIUM CHLORIDE 0.9% 1,000 ML IV SCH ×2 (03:50→16:06)
[2021-09-16 07:35] LABS: Glucose,Whole Blood 141 mg/dL (75-99)
[2021-09-16] MEDS: DEXAMETHASONE SOD PHOSPHATE 10 MG/ML 1 ML VIAL IVP SCH (08:16)
[2021-09-16] MEDS: ASCORBIC ACID 500 MG TAB PO SCH (08:17)
[2021-09-16] MEDS: LOSARTAN 50 MG TAB PO SCH (08:17)
[2021-09-16] MEDS: CHOLECALCIFEROL 25 MCG (1000 IU) TABLET PO SCH ×2 (08:17)
[2021-09-16] MEDS: ENOXAPARIN 40 MG/0.4 ML SYRINGE SQ SCH (08:17)
[2021-09-16] MEDS: ASPIRIN 81 MG PO SCH (08:17)
[2021-09-16] MEDS: PANTOPRAZOLE 40 MG TABLET PO SCH (08:17)
[2021-09-16] MEDS: metFORMIN 500 MG TAB PO SCH (08:17)
[2021-09-16] MEDS: carvediloL 12.5 MG TAB PO SCH (08:17)
[2021-09-16] MEDS: ZINC SULFATE 220 MG CAP PO SCH (08:19)
[2021-09-16 08:30] VITALS: PULSE 65; RESP 18
[2021-09-16] MEDS: ALBUTEROL HFA INHALER INHALATION PRN ×2 (09:02→17:00)
--- NOTE | 2021-09-16 09:23 | XR ---
EXAMINATION TYPE: XR chest 1V portable DATE OF EXAM: 09/16/2021 COMPARISON: 09/14/2021 HISTORY: Cough TECHNIQUE: Single frontal view of the chest is obtained. FINDINGS: Interstitial infiltrates are stable. Subsegmental changes lung bases stable. Heart size un changed. Biapical pleural thickening. Atherosclerotic change of the aorta. Arthropathy of the shoulde rs. IMPRESSION: Interstitial infiltrate stable.
[2021-09-16 12:28] LABS: Glucose,Whole Blood 304 mg/dL (75-99)
[2021-09-16 15:33] VITALS: BP 109/64; TEMP 98.5
--- NOTE | 2021-09-16 15:58 | P.PN ---
Subjective Progress Note Date: 09/16/21 71-year-old male who apparently is been sick for more than a month. He apparently tested positive for coronavirus on September 11. His complaints include weakness, fatigue, and shortness of breath. He came into the emergency room on September 12 complaining of weakness and difficulty in breathing. Nori hutchison, the patient's on 5 L nasal cannula. He is not on any IV fluids. His primary care physician is Dr. Watts. The patient is on vaccinated. There was no evidence of pulmonary embolism. He has a history of COPD, diabetes, CVA, hyperlipidemia, hypertension, and myocardial infarction. White count 8.6, hemoglobin 12.2, hematocrit 34.3, platelet count 342,000. PT, INR, PTT are all normal. Sodium 126, potassium 4.5, chlorides 96, CO2 23, anion gap 7, BUN 43, creatinine 1.17. Coronavirus testing was positive on the . Chest x-ray showed diffuse bilateral patchy mostly lower lobe infiltrates. Based on his history, we thought he was a candidate only for Lovenox, Decadron, vitamin C, v itamin D3, and zinc. The patient is seen today 09/13/2021 in follow-up on the regular medical floor. He is sitting up at the bedside. Awake and alert in no acute distress. He is maintaining O2 saturations in the 90s on 4 L nasal cannula. Feeling a bit better today compared to yesterday. 0.9 normal saline at 130 ML's per hour. White count 13.3. Hemoglobin 10.5. Lymphocytes 0.8. Sodium 132. Potassium 4.7. Creatinine 1.22. AST 15. ALT 10. He is continued on Decadron, Lovenox, vitamin supplements. The patient is seen today 09/14/2021 in follow-up on the regular medical floor. He is awake and alert in no acute distress. Maintaining O2 saturations in the 90s on 5 L/m per nasal cannula. Chest x-ray reveals mild cardiomegaly and bilateral multifocal opacities consistent with COVID-19 infection. No significant change compared to previous. Afebrile. LDH 186. C-reactive prote in 2.10. D-dimer 1.22. Blood glucose 185. He is continued on vitamin supplements, Decadron, Lovenox. The patient is seen today 09/15/2021 in follow-up on the regular medical floor. Currently sitting up in a chair at the bedside. Awake and alert in no acute distress. Doing a bit better today compared to yesterday. He is currently maintaining O2 saturations in the 90s on 3 L/m per nasal cannula. Blood glucose 183. He is continued on Decadron, Lovenox, vitamin supplements. On today's evaluation on 09/16/2021 patient seen in follow-up on medical surgical floor. He is breathing comfortably, he is currently on 2 L of oxygen pulse ox is 98%, room air pulse ox was 97%, and room air O2 sat ration with ambulation was 96%, and patient did not qualify for home oxygen, patient states overall he is feeling better, breathing easier, vital signs have been stable, his been afebrile, no cough, no chest discomfort. No fever or chills, patient did not qualify for Remdesivir however his O2 saturations remained stable on minimal supplemental oxygen he was treated with a combination of Decadron, prophylactic Lovenox, and multivitamins. His inflammatory markers have improved since admission. Chest x-ray today shows stable interstitial infiltrates. Objective - Vital Signs Vital signs: Vital Signs Temp 98.5 F 09/16/21 14:00 Pulse 65 09/16/21 14:00 Resp 18 09/16/21 14:00 BP 109/64 09/16/21 14:00 Pulse Ox 97 09/16/21 14:00 Intake & Output 09/15/21 09/16/21 09/16/21 18:59 06:59 18:59 Intake Total 680 Balance 680 Intake: Oral 680 Other: Voiding Method Toilet Toilet Toilet Urinal Urinal Urinal # Voids 1 # Bowel Movements 1 - Exam GENERAL EXAM: Alert, pleasant, 71-year-old white male, on room air breathing comfortably, sitting up in the recliner comfortable in no apparent distress. HEAD: Normocephalic/atraumatic. EYES: Normal reaction of pupils, equal size. Conjunctiva pink, sclera white. NOSE: Clear with pink turbinates. THROAT: No erythema or exudates. NECK: No masses, no JVD, no thyroid enlargement, no adenopathy. CHEST: No chest wall deformity. Symmetrical expansion. LUNGS: Equal air entry with no crackles, wheeze, rhonchi or dullness. CVS: Regular rate and rhythm, normal S1 and S2, no gallops, no murmurs, no rubs ABDOMEN: Soft, nontender. No hepatosplenomegaly, normal bowel sounds, no guarding or rigidity. EXTREMITIES: No clubbing, no edema, no cyanosis, 2+ pulses and upper and lower extremities. MUSCULOSKELETAL: Muscle strength and tone normal. SPINE: No scoliosis or deformity SKIN: No rashes CENTRAL NERVOUS SYSTEM: Alert and oriented -3. No focal deficits, tone is normal in all 4 extremities. PSYCHIATRIC: Alert and oriented -3. Appropriate affect. Intact judgment and insight. - Labs CBC & Chem 7: 09/13/21 07:44 09/13/21 07:44 Labs: Abnormal Lab Results - Last 24 Hours (Table) 09/15/21 09/15/21 09/16/21 Range/Units 17:25 20:03 05:35 D-Dimer 1.02 H (<0.60) mg/L FEU POC Glucose (mg/dL) 254 H 281 H (75-99) mg/dL 09/16/21 09/16/21 Range/Units 07:33 12:27 D-Dimer (<0.60) mg/L FEU POC Glucose (mg/dL) 141 H 304 H (75-99) mg/dL Assessment and Plan Plan: Assessment: #1. Acute hypoxic respiratory failure secondary to chronic COVID-19 pneumonia not vaccinated. Symptoms greater than 7 days. Not a candidate for Remdesivir. #2. Diabetes mellitus #3. Coronary disease #4. Hypertension #5. Chronic obstructive pulmonary disease #6. History of tobacco dependence Plan: Patient has remained stable Home oxygen assessment was completed and patient did not qualify for home oxygen Breathing comfortably, no acute events overnight, no fever or chills Inflammatory markers are improving Chest x-ray reviewed showing stable interstitial infiltrates From pulmonary perspective patient stable for discharge home today Complete a total of 10 day course of oral Decadron Continue vitamins C, D and zinc Outpatient follow-up with Dr. Underwood or Dr. Delvalle in 2 weeks I performed a history & physical examination of the patient and discussed their management with my nurse practitioner, Michaela Alvarado. I reviewed the nurse pr actitioner's note and agree with the documented findings and plan of care. Lung sounds are positive for dim breath sounds throughout the lung loza. The findings and the impression was discussed with the patient. I attest to the documentation by the nurse practitioner. Time with Patient: Less than 30
== END 2021-09-16 17:20 | disposition home or self-care (01) | DRG 177 ==
LOC: EC 04:35 → 4SSUR 06:08 → 6NMEDSUR 22:01
PROVIDERS: ADMIT Internal Medicine; ATTEND Internal Medicine
DX: U07.1 COVID-19 (principal); J12.82 Pneumonia due to coronavirus disease 2019; J96.01 Acute respiratory failure with hypoxia; J44.0 Chronic obstructive pulmonary disease with (acute) lower respiratory infection; E87.1 Hypo-osmolality and hyponatremia; I10 Essential (primary) hypertension; I25.10 Atherosclerotic heart disease of native coronary artery without angina pectoris; I25.2 Old myocardial infarction; Z68.31 Body mass index [BMI] 31.0-31.9, adult; Z79.02 Long term (current) use of antithrombotics/antiplatelets; Z79.82 Long term (current) use of aspirin; E78.5 Hyperlipidemia, unspecified; E66.9 Obesity, unspecified; E11.9 Type 2 diabetes mellitus without complications; Z87.891 Personal history of nicotine dependence; Z86.73 Personal history of transient ischemic attack (TIA), and cerebral infarction without residual deficits; Z83.3 Family history of diabetes mellitus; Z82.49 Family history of ischemic heart disease and other diseases of the circulatory system; Z79.899 Other long term (current) drug therapy; Z79.84 Long term (current) use of oral hypoglycemic drugs
CPT/HCPCS: 36415; 71045; 80053; 81003; 83605; 83615; 83735; 84100; 84145; 84484; 85025; 85379; 85610; 85730; 86140; 87635; 93005; 94640; 96360; 99285

== ENCOUNTER → 2022-03-14 | Outpatient (CLI) | payer MEDICARE ==
--- NOTE | 2022-03-14 18:35 | CA ---
Transthoracic Echo Report Name: George Kang Age: 72 Gender: M : 1950 Exam Date: 03/14/2022 15:32 Exam Location: [facility] Ht (in): 71 Wt (lb): 230 Ordering Physician: Carmela Watts MD Attending/Referring Phys: [employer] Arielle Desir RDCS Procedure CPT: Indications: I35.0 AORTIC VALVE SENOSIS Cardiac Hx: Technical Quality: Contrast 1: Total Dose (mL): Contrast 2: Total Dose (mL): MEASUREMENTS (Male / Female) Normal Values 2D ECHO LV Diastolic Diameter PLAX 5.2 cm 4.2 - 5.9 / 3.9 - 5.3 cm LV Systolic Diameter PLAX 2.3 cm IVS Diastolic Thickness 1.4 cm 0.6 - 1.0 / 0.6 - 0.9 cm LVPW Diastolic Thickness 1.2 cm 0.6 - 1.0 / 0.6 - 0.9 cm LV Relative Wall Thickness 0.5 RV Internal Dim ED PLAX 2.7 cm LVOT Diameter 1.8 cm LA Volume 63.1 cm??? 18 - 58 / 22 - 52 cm??? M-MODE Aortic Root Diameter MM 4.0 cm LA Systolic Diameter MM 3.5 cm LA Ao Ratio MM 0.9 MV E Point Septal Separation 1.5 cm AV Cusp Separation MM 1.4 cm DOPPLER AV Peak Velocity 331.4 cm/s AV Peak Gradient 43.9 mmHg AV Mean Velocity 234.7 cm/s AV Mean Gradient 26.1 mmHg AV Velocity Time Integral 75.2 cm AI Peak Velocity 360.2 cm/s AI Peak Gradient 51.9 mmHg AI Pressure Half Time 653.6 ms LVOT Peak Velocity 106.8 cm/s LVOT Peak Gradient 4.6 mmHg AV Area Cont Eq pk 0.8 cm??? MV Area PHT 2.4 cm??? MR Peak Velocity 97.5 cm/s MR Peak Gradient 3.8 mmHg Mitral E Point Velocity 72.5 cm/s Mitral A Point Velocity 102.9 cm/s Mitral E to A Ratio 0.7 MV Deceleration Time 312.2 ms MV E' Velocity 4.9 cm/s Mitral E to MV E' Ratio 14.7 TR Peak Velocity 194.3 cm/s TR Peak Gradient 15.1 mmHg Right Ventricular Systolic Press 20.1 mmHg FINDINGS Left Ventricle Mildly increased septal wall thickness. Left ventricular ejection fraction is estimated at 55-60 %. Left ventricular cavity size normal. Grade 2 diastolic dysfunction. Right Ventricle Normal right ventricular size and function. Right Atrium Normal right atrial size. Left Atrium Mildly increased left atrial volume. Mitral Valve Structurally normal mitral valve without significant stenosis or prolapse. There is mild mitral regurgitation. Aortic Valve Moderate aortic stenosis with a peak gradient of 44 mmHg and a mean gradient of 26 mmHg and a PIERRE of .8 cm2. . There is moderate to severe aortic regurgitation. Tricuspid Valve Structurally normal tricuspid valve without significant stenosis. Pulmonary artery systolic pressure is normal. Mild tricuspid regurgitation. Pulmonic Valve Structurally normal pulmonic valve without significant stenosis. There is no pulmonic regurgitation. Pericardium Normal pericardium without effusion. Aorta Mildly dilated aortic annulus. CONCLUSIONS Normal left ventricular dimension and systolic function Moderate aortic insufficiency. Moderate aortic stenosis Previewed by: Dr. Fracisco Londono MD (Electronically Signed) Final Date: 14 Mar 2022 18:34
== END | disposition home or self-care (01) ==
LOC: RADECHMAIN 15:23
PROVIDERS: ATTEND Family Medicine
DX: I35.0 Nonrheumatic aortic (valve) stenosis (principal)
CPT/HCPCS: 93306

== ENCOUNTER → 2023-05-08 | Day surgery (SDC) | payer MEDICARE ==
[2023-05-05 17:24] VITALS: BMI 31.5
[~2023-05-08] MED LIST changes: -ACETAMINOPHEN IV (For NPO) 1,000 MG in EMPTY BAG 1 BAG IVPB ONE; +ALPRAZolam 0.25 MG TAB PO PRN; +ALPRAZolam 0.5 MG TAB PO PRN; +ASPIRIN 325 MG TAB PO ONE; +ATORVASTATIN 80 MG TAB PO ONE; +BENZOCAINE SPRAY 1 CAN TOPICAL ONE; -DEXAMETHASONE SOD PHOSPHATE 10 MG/ML 1 ML VIAL IV ONE; +HEPARIN SODIUM 1,000 UN/ML (10ML VL) IV ONE; +HEPARIN SODIUM 1,000 UN/ML (10ML VL) ONE; +HEPARIN SODIUM,PORCINE 10,000 UNIT in SODIUM CHLORIDE 0.9% 1,000 ML IRRIGATION PRN; +HEPARIN SODIUM,PORCINE 2,500 UNIT in SODIUM CHLORIDE 0.9% 250 ML IRRIGATION PRN; -HEPARIN SODIUM,PORCINE 5,000 UNIT/ML 1 ML VIAL SQ ONE; +IOPAMIDOL-370 100ML BTL INJ ONE; +IV FLUID CONTINUATION 800 ML IV ONE; +LIDOCAINE 1% INJ 10MG/ML (5 ML VIAL-PF) SQ ONE; -MIDAZOLAM 2 MG/2 ML VIAL IV PRN; +MIDAZOLAM 2 MG/2 ML VIAL IVP ONE; +NITROGLYCERIN SL TABS 0.4 MG TAB SUBLINGUAL PRN; -ONDANSETRON 4 MG/2 ML VIAL IVP ONE; +SODIUM CHLORIDE 0.9% 1,000 ML in EMPTY BAG 1 BAG IV SCH; +VERAPAMIL 2.5 MG/ML 2 ML AMP ONE; +VERAPAMIL SYRINGE (5 MG/10 ML) INTRAARTER ONE; -ceFAZolin IN SWFI 2 GM/20 ML SYRINGE IVP ONE; +fentaNYL (PF) 50 MCG/1 ML VIAL IVP ONE; +fentaNYL (PF) 50 MCG/ML 2 ML AMP IVP ONE; +fentaNYL (PF) 50 MCG/ML 2 ML AMP ONE
[2023-05-08 10:44] LABS: Glucose,Whole Blood 145 mg/dL (70-110)
[2023-05-08 11:30] LABS: Basophils % (A) 0 %; Eosinophils # (A) 0.3 k/uL (0-0.7); Eosinophils % (A) 4 %; HCT 36.3 % (39.0-53.0); HGB 12.7 gm/dL (13.0-17.5); Lymphocytes # (A) 1.8 k/uL (1.0-4.8); Lymphocytes % (A) 26 %; MCH 32.4 pg (25.0-35.0); MCHC 34.9 g/dL (31.0-37.0); MCV 92.7 fL (80.0-100.0); Mean Platelet Volume 7.6; Monocytes # (A) 0.4 k/uL (0-1.0); Monocytes % (A) 5 %; Neutrophils # (A) 4.4 k/uL (1.3-7.7); Neutrophils % (A) 63 %; Platelet Count 169 k/uL (150-450); RBC 3.91 m/uL (4.30-5.90); RDW 13.9 % (11.5-15.5)
[2023-05-08 11:47] VITALS: RESP 16; TEMP 97.8
[2023-05-08] MEDS: BENZOCAINE SPRAY 1 CAN TOPICAL ONE ×2 (12:12→12:15)
--- NOTE | 2023-05-08 14:15 | P.TEE ---
Description of Procedure(s): Procedure performed: Transesophageal Echocardiogram with color flow doppler, pulsed wave doppler and continuous wave doppler, moderate conscious sedation Moderate conscious sedation: Moderate conscious sedation was supplied with direct supervision of myself using Versed and Fentanyl. Complications: none Indications: Aortic stenosis, aortic insufficiency PROCEDURE: After the risks, benefits and alternatives of the above mentioned procedure was explained in detail with the patient, informed consent was obtained. Patient was brought to the lab in a fasting state. Patient was given IV Versed and Fentanyl for sedation. The throat was sprayed with Hurricane to anesthetize the throat. A lubricated Omni probe was then introduced into the esophagus and stomach and multiple views were obtained. 2D echo with color flow doppler, pulsed wave doppler and continuous wave doppler was utilized. Agitated saline bubbles were injected to assess for any intra-atrial shunt. The probe was then removed. Patient tolerated the procedure well. Patient was transferred to the post procedure area in stable and satisfactory condition. FINDINGS: 1. The aortic valve is bicuspid with severe aortic stenosis with aortic valve area 1.0 cm by planimetry with severe aortic insufficiency with dialysis outflow reversal noted in the descending aorta. 2. The mitral valve appears be normal with mild mitral regurgitation. 3. Tricuspid valve appears to be normal. 4. The interatrial septum is intact. No evidence of PFO. 5. Left atrial appendage is free of clot. 6. Left ventricular ejection fraction 55%
--- NOTE | 2023-05-08 17:17 | P.CARDCATH ---
Description of Procedure: PROCEDURES PERFORMED: Bilateral coronary angiography, ultrasound guided arterial access INDICATION: Severe aortic stenosis CONSENT:I have discussed the risks, benefits and alternative therapies for the above-mentioned procedure and for both sedation/analgesia as well as necessary blood product administration, if indicated, as they pertain to this patient. The patient has indicated understanding and acceptance of the risks and procedures discussed. PROCEDURE: After the risks, benefits and alternatives of the above mentioned pr ocedure explained in detail with the patient, informed consent was obtained. Patient was taken to the catheterization lab and prepped and draped in usual fashion. Ultrasound guidance was used to assess for arterial access. 1% lidocaine was used to anesthetize the right radial artery. A 6-Mexican sheath was placed in the right radial artery using modified Seldinger technique and ultrasound guidance. Left coronary angiography was performed with a 5-Mexican JL 4.5 catheter and right coronary angiography was performed with a 6-Mexican AL 1 guide catheter in various views. There was significant difficulty engaging the RCA with large amount of movement of the catheter from the aortic stenosis however eventually engaged with the AL-1 guide. The right radial sheath was removed and a TR band was placed with hemostasis achieved. The patient tolerated the procedure well. Patient was transported back to the post catheterization holding area in stable condition. Conscious Sedation: Patient was monitored under the direct supervision of myself for conscious sedation using Versed and fentanyl for a total duration of 44 minutes HEMODYNAMICS: Aorta: 112/44 SELECTIVE CORONARY ARTERIOGRAPHY: LEFT MAIN: The left main is a large caliber vessel which bifurcates into the LAD and circumflex. There is no significant stenosis. LEFT ANTERIOR DESCENDING CORONARY ARTERY: LAD is a large caliber vessel which wraps around to the apex. There is a mid LAD 20-30% stenosis and otherwise normal LEFT CIRCUMFLEX CORONARY ARTERY: Left circumflex is a large caliber vessel with a mid circumflex 40-50% stenosis just after a large caliber OM1 vessel and otherwise mild luminal irregularities. The circumflex is codominant. RIGHT CORONARY ARTERY: The right coronary artery is a small caliber vessel which gives off an acute marginal branch. There is no significant stenosis. FINAL IMPRESSION: 1. CAD as described above including 2030% LAD stenosis and 40-50% mid circumflex stenosis. 2. Significant toruosity and difficulty engaging from a right radial approach PLAN: 1. Aggressive risk factor modification per most recent ACC/AHA guidelines. 2. Evaluate for AVR
[2023-05-08 17:54] VITALS: BP 142/65; PULSE 48
== END ==
LOC: CATHCVL 09:57
PROVIDERS: ATTEND Internal Medicine
DX: I25.10 Atherosclerotic heart disease of native coronary artery without angina pectoris (principal); I34.0 Nonrheumatic mitral (valve) insufficiency; I10 Essential (primary) hypertension; E78.5 Hyperlipidemia, unspecified; E11.9 Type 2 diabetes mellitus without complications; Z79.82 Long term (current) use of aspirin; Z79.84 Long term (current) use of oral hypoglycemic drugs; Z79.899 Other long term (current) drug therapy
CPT/HCPCS: 93312; 93320; 93325; 93454; 76937; 85025; C1769 ×2; C1887; C1894; J2250; J2001; J3010 ×2; J1644; Q9967

== ENCOUNTER 2023-05-21 06:32 | Outpatient (CLI) | payer MEDICARE ==
[2023-05-21 07:25] LABS: Glucose,Whole Blood 142 mg/dL (70-110)
[2023-05-21 10:36] LABS: Basophils % (A) 0 %; Eosinophils # (A) 0.3 k/uL (0-0.7); Eosinophils % (A) 4 %; HCT 36.2 % (39.0-53.0); HGB 12.5 gm/dL (13.0-17.5); Lymphocytes # (A) 1.8 k/uL (1.0-4.8); Lymphocytes % (A) 24 %; MCH 31.4 pg (25.0-35.0); MCHC 34.4 g/dL (31.0-37.0); MCV 91.3 fL (80.0-100.0); Mean Platelet Volume 8.4; Monocytes # (A) 0.6 k/uL (0-1.0); Monocytes % (A) 8 %; Neutrophils # (A) 4.5 k/uL (1.3-7.7); Neutrophils % (A) 61 %; Platelet Count 186 k/uL (150-450); RBC 3.96 m/uL (4.30-5.90); RDW 13.9 % (11.5-15.5); WBC 7.3 k/uL (3.8-10.6)
[2023-05-21 10:46] LABS: INR 0.9 (<1.2); Partial Thromboplastin Time 25.3 sec (22.0-30.0)
[2023-05-21 11:44] LABS: ALT 18 U/L (4-49); AST 27 U/L (17-59); African American GFR (CKD) 75 (>60 ml/min/1.73 sqM); Albumin 4.3 g/dL (3.5-5.0); Albumin/Globulin Ratio 1.5; Alkaline Phosphatase 68 U/L (38-126); Anion Gap 9 mmol/L; Blood Urea Nitrogen 28 mg/dL (9-20); Calcium 9.9 mg/dL (8.4-10.2); Carbon Dioxide 24 mmol/L (22-30); Chloride 103 mmol/L (98-107); Globulin 2.8 g/dL; Glucose 143 mg/dL (74-99); Non-African American GFR(CKD) 65 (>60 ml/min/1.73 sqM); Potassium 4.7 mmol/L (3.5-5.1); Sodium 136 mmol/L (137-145); Total Bilirubin 0.6 mg/dL (0.2-1.3); Total Protein 7.1 g/dL (6.3-8.2)
[2023-05-21 11:52] LABS: NT-Pro-B-Type Natriuretic Pept 593 pg/mL
[2023-05-21 11:53] LABS: Appearance,Urine Clear (Clear); Color,Urine Colorless; PH, Urine 6.5 (5.0-8.0)
[2023-05-21 11:54] LABS: Bilirubin,Urine Negative (Negative); Blood,Urine Negative (Negative); Glucose,Urine (UA) Negative (Negative); Ketones,Urine Negative (Negative); Leukocyte Esterase,Urine Negative (Negative); Nitrite,Urine Negative (Negative); Protein,Urine Negative (Negative); Urobilinogen,Urine <2.0 mg/dL (<2.0)
--- NOTE | 2023-05-21 12:17 | CT ---
EXAMINATION TYPE: CT TAVR Planning DATE OF EXAM: 05/21/2023 CLINICAL INDICATION:Male, 73 years old with history of I35.1; CT DLP: 2179.5 mGycm Automated Exposure Control for Dose Reduction was Utilized. CONTRAST: 125 cc of Isovue-370. Axial imaging of the aorta. Sagittal and coronal reformats. COMPARISON: No priors due to malfunction of the back up drive. TECHNIQUE: Helical imaging obtained through the chest, abdomen and pelvis during arterial phase ilene kenia administration of radiographic contrast intravenously. FINDINGS: See report from [facility] regarding preprocedural planning Extensive consultations of the aortic valve. No evidence for aortic aneurysm or dissection. Mild scat tered atherosclerotic disease. The common femoral arteries and external iliac arteries are patent wit h no significant atherosclerosis. CHEST: Lower Neck and Thyroid: No significant findings Lungs: No significant findings Central Airway: No significant findings Pleura: No significant findings Pulmonary Arteries: No significant findings Heart and Pericardium: The heart is mildly enlarged for size. Lymph Nodes: No significant findings Mediastinum & Esophagus: No significant findings ABDOMEN/PELVIS: Please note arterial phase of the imaging limits detailed evaluation of the solid abdominal organs. Liver: No significant findings Spleen: No significant findings Kidneys: Right renal exophytic enhancing mass measuring up to 2.0 cm. No hydronephrosis. There is no calculi visualized however there is excreted IV contrast in the collecting system. Left simple appear ing renal cysts. Adrenal Glands: No significant findings Pancreas: No significant findings Gallbladder: No significant findings Bowel and Mesentery: No significant findings, few scattered colonic diverticula. The appendix is norm al. Second portion duodenal diverticulum. Lymph Nodes: No significant findings Urinary Bladder: No significant findings Pelvic Organs: No significant findings Other: The prostate gland is enlarged measuring up to 5.8 cm. Left fat-containing inguinal hernia. Other Lines/Tubes/Devices/Hardware: None IMPRESSION: 1. Severe aortic valve leaflet calcifications. 2. Right renal enhancing mass measuring 2.0 cm. Findings concerning for renal cell carcinoma. Urolog ic consultation recommended.
--- NOTE | 2023-05-21 13:00 | US ---
EXAMINATION TYPE: US carotid duplex BILAT DATE OF EXAM: 05/21/2023 COMPARISON: 11/09/2014 CLINICAL INDICATION: Male, 73 years old with history of pre-TAVR- syncope; vertigo spells, pre-TAVR TECHNIQUE: Carotid duplex ultrasound examination. Indirect Doppler criteria was utilized. FINDINGS: EXAM MEASUREMENTS: RIGHT: Peak Systolic Velocity (PSV) cm/sec ----- Right CCA: 50.1 ----- Right ICA: 135.8 ----- Right ECA: 117.9 ICA/CCA ratio: 2.7 RIGHT: End Diastole cm/sec ----- Right CCA: 9.1 ----- Right ICA: 35.3 ----- Right ECA: 0.0 LEFT: Peak Systolic Velocity (PSV) cm/sec ----- Left CCA: 68.7 ----- Left ICA: 200.4 ----- Left ECA: 122.4 ICA/CCA ratio: 2.9 LEFT: End Diastole cm/sec ----- Left CCA: 7.7 ----- Left ICA: 36.0 ----- Left ECA: 0.0 VERTEBRALS (direction of flow): Right Vertebral: Antegrade Left Vertebral: Antegrade Rhythm: Normal [employer]MER NOTES: bilateral ICA stenotic velocities, and atherosclerotic plaque noted Exam slightly limited due to excessive movement from breathing, snoring and machine interference IMPRESSION: 1. Moderate bilateral atherosclerotic plaque with findings suggestive of a 50-69% stenosis bilaterall y. Criteria for Assigning % of Stenosis / Diameter reduction (Estimation based on the indirect measurements of the internal carotid artery velocities (ICA PSV). 1. Normal (no stenosis)=ICA PSV < 125 cm/s: ratio < 2.0: ICA EDV<40 cm/s. 2. Less than 50% stenosis=ICA PSV < 125 cm/s: ratio < 2.0: ICA EDV<40 cm/s. 3. 50 to 69% stenosis=ICA PSV of 125 to 230 cm/s: ration 2.0 ? 4.0: ICA EDV 40-100 cm/s. 4. Greater than 70% stenosis to near occlusion= ICA PSV > 230 cm/s: ratio > 4.0: ICA EDV > 100 cm/s. 5. Near occlusion= ICA PSV velocities may be low or undetectable: variable ratio and ICA EDV. 6. Total occlusion=unable to detect flow.
--- NOTE | 2023-05-21 13:39 | XR ---
EXAMINATION TYPE: XR chest 2V DATE OF EXAM: 05/21/2023 1:23 PM COMPARISON: Chest radiographs from 09/16/2021 TECHNIQUE: XR chest 2V Frontal and lateral views of the chest. CLINICAL INDICATION:Male, 73 years old with history of pre-TAVR; FINDINGS: Lungs/Pleura: There is no evidence of pleural effusion, focal consolidation, or pneumothorax. Pulmonary vascularity: Unremarkable. Heart/mediastinum: Cardiomediastinal silhouette is prominent in size. Atherosclerotic calcifications are seen in the aorta. Musculoskeletal: No acute osseous pathology. IMPRESSION: No acute cardiopulmonary disease/process.
[2023-05-21 14:03] VITALS: BP 176/84; PULSE 72; RESP 16; TEMP 97.4
[2023-05-21 21:03] LABS: Hepatitis A Antibody IgM Nonreactive; Hepatitis B Core IgM Nonreactive; Hepatitis B Surface Antigen Nonreactive; Hepatitis C IgG Antibody Nonreactive
[2023-05-21 21:14] LABS: Chol/HDL Ratio 3.84 Ratio; LDL Cholesterol,Calculated 88.8 mg/dL (0.0-131.0)
== END 2023-05-21 15:06 | disposition home or self-care (01) ==
LOC: LABWHC1 06:32
PROVIDERS: ATTEND Thoracic Surgery (Cardiothoracic Vascular Surgery)
DX: I35.1 Nonrheumatic aortic (valve) insufficiency (principal); I70.0 Atherosclerosis of aorta; N28.89 Other specified disorders of kidney and ureter
CPT/HCPCS: 94150; 83880; 80061; 80053; 80074; 84443; 83735; 85025; 85610; 85730; 81003; 83036; 71046; 93880; 71275; 74174; 36415; Q9967

== ENCOUNTER → 2023-07-01 | Outpatient (CLI) | payer MEDICARE ==
[2023-07-01 10:12] LABS: INR 0.9 (<1.2); Partial Thromboplastin Time 25.5 sec (22.0-30.0); Prothrombin Time 9.8 sec (9.0-12.0)
--- NOTE | 2023-07-01 10:52 | US ---
EXAMINATION TYPE: US vein mapping BIL DATE OF EXAM: 07/01/2023 10:36 AM COMPARISON: NONE CLINICAL INDICATION: Male, 73 years old with history of OPEN HEART; open heart SIDE PERFORMED: Bilateral TECHNIQUE: Lower extremity saphenous vein is examined and measured utilizing real time linear array sonography. Patient History: Smoker: no Heart Disease: no Previous DVT: no Vascular Surgery: no Discoloration: no Hypertension: yes Diabetes: yes Paralysis: no Varicosities: no Edema: no DUPLEX FINDINGS: Greater Saphenous: Color flow seen Lesser Saphenous: Color flow seen Measurements in mm: Right Greater Saphenous: Groin: 7.1 x 6.2 mm High Thigh: 3.1 x 1.6 mm Mid Thigh: 1.6 x 1.5 mm Above Knee: 1.8 x 2.1 mm Knee: 1.9 X 1.7 mm Below Knee: 1.0 X .8 mm Mid Calf: 2.9 X 1.4 X mm At Ankle: 2.8 X 1.7 mm Left Greater Saphenous: Groin: 5.1 X 6.1 mm High Thigh: 5.4 X 4.8 mm Mid Thigh: 2.8 X 2.3 mm Above Knee: 2.1 X 2.2 mm Knee: 3.3 X 2.9 mm Below Knee: 2.3 X 1.6 mm Mid Calf: 1.5 X 1.1 mm At Ankle: 3.0 X 1.9 mm IMPRESSION: 1. Bilateral GSV measurements listed above. 2. Performing surgeon to determine viability as conduit.
--- NOTE | 2023-07-01 12:25 | XR ---
EXAMINATION TYPE: XR chest 2V DATE OF EXAM: 07/01/2023 COMPARISON: 05/21/2023 TECHNIQUE: PA and lateral views submitted. HISTORY: Preop FINDINGS: The lungs are clear and there is no pneumothorax, pleural effusion, or focal pneumonia. Heart size normal and no overt failure. Osseous structures demonstrate hypertrophic and degenerative changes of the spine. Ectasia of the aorta. AC joint arthropathy. Limited inspiration. IMPRESSION: 1. No acute process.
[2023-07-01 16:35] LABS: HCT 38.8 % (39.6-50.0); HGB 12.3 d/dL (13.0-17.0); MCH 30.2 pg (27.0-32.0); MCHC 31.7 d/dL (32.0-37.0); MCV 95.3 FL (80.0-97.0); Mean Platelet Volume 10.1 FL (9.5-12.2); NRBC Per 100 WBC 0 X 10*3/uL (0.00-0.01); Platelet Count 223 X 10*3/uL (140-440); RBC 4.07 X 10*6/uL (4.40-5.60); RDW 13.2 % (11.5-14.5); WBC 6.55 X 10*3/uL (4.50-10.00)
[2023-07-01 16:41] LABS: ALT 16 U/L (10-49); AST 17 U/L (14-35); Albumin 4.8 d/dL (3.8-4.9); Albumin/Globulin Ratio 2.29 Ratio (1.60-3.17); Alkaline Phosphatase 81 U/L (41-126); BUN/Creat Ratio 20.62 Ratio (12.00-20.00); Blood Urea Nitrogen 26.8 mg/dL (9.0-27.0); Calcium 10.6 mg/dL (8.7-10.3); Chloride 105 mmol/L (96-109); Globulin 2.1 d/dL (1.6-3.3); Glucose 106 mg/dL (70-110); Potassium 6.2 mmol/L (3.5-5.5); Sodium 140 mmol/L (135-145); Total Bilirubin 0.3 mg/dL (0.3-1.2); Total Protein 6.9 d/dL (6.2-8.2)
== END | disposition home or self-care (01) ==
LOC: LABWHC1 09:05
PROVIDERS: ATTEND Surgery
DX: Z01.818 Encounter for other preprocedural examination (principal); I10 Essential (primary) hypertension; I35.0 Nonrheumatic aortic (valve) stenosis; E11.9 Type 2 diabetes mellitus without complications
CPT/HCPCS: 36415; 71046; 80053; 83735; 85027; 85610; 85730; 87070; 93970

== ENCOUNTER → 2023-07-06 | Outpatient (CLI) | payer MEDICARE | END | disposition home or self-care (01) | LOC: LABWHC1 13:11 | PROVIDERS: ATTEND Surgery | DX: Z01.812 Encounter for preprocedural laboratory examination (principal); I35.0 Nonrheumatic aortic (valve) stenosis; E87.5 Hyperkalemia; Z79.899 Other long term (current) drug therapy | CPT/HCPCS: 36415; 84132 ==

== ENCOUNTER → 2023-09-28 | Outpatient (CLI) | payer MEDICARE ==
[2023-09-28 13:39] LABS: African American GFR (CKD) 63 (>60 ml/min/1.73 sqM); Blood Urea Nitrogen 28 mg/dL (9-20); Non-African American GFR(CKD) 55 (>60 ml/min/1.73 sqM)
--- NOTE | 2023-09-28 17:33 | CT ---
EXAMINATION TYPE: CT abdomen wo/w con DATE OF EXAM: 09/28/2023 COMPARISON: 09/17/2018 INDICATION: renal mass DLP: 2184.3 mGycm, Automated exposure control for dose reduction was used. CONTRAST: 80cc mL of Isovue 300. Study performed with Oral Contrast TECHNIQUE: Axial images were obtained from above the diaphragm to the pubic rami in the axial plane a t 5 mm thick sections. Reconstructed images are reviewed on the computer in the coronal plane. FINDINGS: Limited CT sections are obtained the lung bases. The lung bases are clear. CT ABDOMEN: Liver: Normal Spleen: Normal Pancreas: Normal Adrenal glands: The adrenal glands are normal. Gallbladder: Normal Kidneys: No masses are evident. No hydronephrosis is present. There appear to be cysts present, lik amrit complex, measuring 2.0 cm on the posterior lateral right mid kidney and simple appearing cyst in the cortex of the anterior lateral mid to inferior pole left kidney measuring 1.6 cm. Right renal fin ding appears stable, left renal cyst appears developing from prior exam. No renal stones are evident . Following contrast menstruation suspicious enhancement is not identified. The mass on the right kid martinez is better visualized. Delayed images were obtained through the kidneys better demonstrating the l eft renal cyst Aorta: Vascular calcification is within the aorta. Inferior vena cava: Normal. Loops of bowel with contrast within the abdomen appear unremarkable. There are loops of bowel lacking oral contrast limiting their evaluation. Fecal debris is within the colon. IMPRESSION: 1. Stable appearing 2.0 cm mass posterior lateral right kidney. 2. Increased size of a simple appearing cyst anterior lateral left mid kidney.
== END | disposition home or self-care (01) ==
LOC: RADCTMAIN 12:31
PROVIDERS: ATTEND Urology
DX: N28.89 Other specified disorders of kidney and ureter (principal); D41.01 Neoplasm of uncertain behavior of right kidney
CPT/HCPCS: 82565; 84520; 74170; 36415; Q9967